=== PATIENT | male | born 1990 | race Caucasian/White ===

== ENCOUNTER 2017-01-23 10:56 | Emergency (ER) | payer SELFPAY ==
[2017-01-23] MEDS ORDERED: Alum Hydrox/Mag Hydrox/Simeth 15 ML, Metoclopramide 5 MG, Lidocaine 2% 5 ML PO ONE ×3 (11:11)
[2017-01-23] MEDS ORDERED: Pantoprazole 40 MG Vial IVPUSH ONE (11:11)
[2017-01-23] MEDS ORDERED: Ondansetron 4 MG/2 ML SDV IVPUSH ONE (11:11)
--- NOTE | 2017-01-23 11:22 | EDM.PDOC ---
ED HPI GENERAL MEDICAL PROBLEM - General Chief Complaint: Gastrointestinal Problem Stated Complaint: VOMITING Time Seen by Provider: 01/23/17 11:21 Source of Information: Reports: Patient History Limitations: Reports: No Limitations - History of Present Illness INITIAL COMMENTS - FREE TEXT/NARRATIVE: History of present illness: [27-year-old male comes in complaining of epigastric pain and vomiting. Patient indicates that he is post Prilosec fails to remember to take it frequently. Patient also acknowledges that he smokes marijuana on a daily basis and that he is the only one in the house at this time with nausea and vomiting denies diarrhea.] Review of systems: As per history of present illness and below otherwise all systems reviewed and negative. Past medical history: As per history of present illness and as reviewed below otherwise noncontributory. Surgical history: As per history of present illness and as reviewed below otherwise noncontributory. Social history: No reported history of drug or alcohol abuse. Family history: As per history of present illness and as reviewed below otherwise noncontributory. Physical exam: HEENT: Atraumatic, normocephalic, pupils reactive, negative for conjunctival pallor or scleral icterus, mucous membranes moist, throat clear, neck supple, nontender, trachea midline. Lungs: Clear to auscultation, breath sounds equal bilaterally, chest nontender. Heart: S1S2, regular, negative for clicks, rubs, or JVD. Abdomen: Soft, nondistended, nontender. Negative for masses or hepatosplenomegaly. Negative for costovertebral tenderness. Pelvis: Stable nontender. Genitourinary: Deferred. Rectal: Deferred. Extremities: Atraumatic, negative for cords or calf pain. Neurovascular unremarkable. Neuro: Awake, alert, oriented. Cranial nerves II through XII unremarkable. Cerebellum unremarkable. Motor and sensory unremarkable throughout. Exam nonfocal. Global assessment is benign and want dialogue with patient he initially is writhing in the bed and moaning and crying but when taking his history he was able to speak clearly in full sentences without any signs of distress. Diagnostics: [] Therapeutics: [GI cocktail, Protonix, Zofran] Impression: [Viral syndrome Nausea and vomiting] Plan: [Zofran clear liquid diet follow-up with PCP] Definitive disposition and diagnosis as appropriate pending reevaluation and review of above. Bilateral Upper Abdominal Pain Score (Numeric/FACES): 8 - Related Data Allergies Allergy/AdvReac Type Severity Reaction Status Date / Time No Known Allergies Allergy Verified 01/23/17 11:05 Home Meds: Home Meds Ondansetron [Ondansetron Odt] 4 mg SL Q6H PRN #20 tab.rapdis 04/12/15 [Rx] Ondansetron [Zofran] 4 mg PO Q4H #30 tab 01/23/17 [Rx] Past Medical History - Past Health History Medical/Surgical History: Denies Medical/Surgical History HEENT History: Reports: None Cardiovascular History: Reports: None Respiratory History: Reports: None Gastrointestinal History: Reports: GERD Genitourinary History: Reports: None Musculoskeletal History: Reports: None Neurological History: Reports: None Psychiatric History: Reports: None Endocrine/Metabolic History: Reports: None Hematologic History: Reports: None Immunologic History: Reports: None Oncologic (Cancer) History: Reports: None Dermatologic History: Reports: None - Infectious Disease History Infectious Disease History: Reports: Chicken Pox - Past Surgical History Head Surgeries/Procedures: Reports: None HEENT Surgical History: Reports: Myringotomy w Tube(s) Cardiovascular Surgical History: Reports: None Respiratory Surgical History: Reports: None GI Surgical History: Reports: None Male Surgical History: Reports: None Endocrine Surgical History: Reports: None Neurological Surgical History: Reports: None Musculoskeletal Surgical History: Reports: Other (See Below) Dermatological Surgical History: Reports: None Social & Family History - Family History Family Medical History: Noncontributory Cardiac: Reports: Hypertension - Tobacco Use Smoking Status *Q: Current Every Day Smoker Years of Tobacco use: 9 Packs/Tins Daily: 1 Used Tobacco, but Quit: No Second Hand Smoke Exposure: No - Caffeine Use Caffeine Use: Reports: Soda, Tea - Alcohol Use Days Per Week of Alcohol Use: 1 Number of Drinks Per Day: 1 Total Drinks Per Week: 1 - Recreational Drug Use Recreational Drug Use: Yes Drug Use in Last 12 Months: Yes Recreational Drug Type: Reports: Marijuana/Hashish Recreational Drug Use Frequency: Daily Recreational Drug Last Use: Nov 19, 2015 ED ROS GENERAL - Review of Systems Review Of Systems: See Below (See history of present illness) ED EXAM, GENERAL - Physical Exam Exam: See Below (See history of present illness) Course - Vital Signs Last Recorded V/S: Last Vital Signs Temp 37.4 C 01/23/17 11:07 Pulse 65 01/23/17 11:07 Resp 16 01/23/17 11:07 BP 136/86 01/23/17 11:07 Pulse Ox 97 01/23/17 11:07 - Orders/Labs/Meds Orders: Active Orders 24 hr Category Date Time Status Saline Lock Insert [OM.PC] Stat Oth 01/23/17 11:10 Ordered Meds: Medications Discontinued Medications Generic Name Dose Route Start Last Admin Trade Name Sugey PRN Reason Stop Dose Admin Al Hydroxide/Mg Hydroxide 15 0 ml 01/23/17 11:11 01/23/17 11:37 ml/ Metoclopramide HCl 5 mg/ PO 01/23/17 11:12 1 each Lidocaine HCl 5 ml ONETIME ONE Administration Ondansetron HCl 4 mg 01/23/17 11:11 01/23/17 11:33 Zofran IVPUSH 01/23/17 11:12 4 mg ONETIME ONE Administration Pantoprazole Sodium 80 mg 01/23/17 11:11 01/23/17 11:36 Protonix Iv IVPUSH 01/23/17 11:12 80 mg .BOLUS ONE Administration Departure - Departure Time of Disposition: 11:54 Disposition: Home, Self-Care 01 Condition: Good Clinical Impression: Nausea and vomiting - Discharge Information Prescriptions: Ondansetron [Zofran] 4 mg PO Q4H #30 tab Referrals: Uriel Rebolledo MD [Primary Care Provider] - Forms: ED Department Discharge Additional Instructions: The following information is given to patients seen in the emergency department who are being discharged to home. This information is to outline your options for follow-up care. We provide all patients seen in our emergency department with a follow-up referral. The need for follow-up, as well as the timing and circumstances, are variable depending upon the specifics of your emergency department visit. If you don't have a primary care physician on staff, we will provide you with a referral. We always advise you to contact your personal physician following an emergency department visit to inform them of the circumstance of the visit and for follow-up with them and/or the need for any referrals to a consulting specialist. The emergency department will also refer you to a specialist when appropriate. This referral assures that you have the opportunity for follow-up care with a specialist. All of these measure are taken in an effort to provide you with optimal care, which includes your follow-up. Under all circumstances we always encourage you to contact your private physician who remains a resource for coordinating your care. When calling for follow-up care, please make the office aware that this follow-up is from your recent emergency room visit. If for any reason you are refused follow-up, please contact the [facility] Emergency Department at and asked to speak to the emergency department charge nurse. Take nausea medicine as needed Up with PCP 1-2 days clear liquid diet for the next 2-3 days advancing diet as tolerated slowly with bananas rice applesauce toast Return to ED as needed as discussed - My Orders Last 24 Hours: My Active Orders 01/23/17 11:10 Saline Lock Insert [OM.PC] Stat - Assessment/Plan Last 24 Hours: My Active Orders 01/23/17 11:10 Saline Lock Insert [OM.PC] Stat
[2017-01-23 11:44] VITALS: BP 136/86
== END 2017-01-23 12:16 | disposition home or self-care (01) ==
LOC: MW.ED 10:56
DX: B34.9 Viral infection, unspecified (principal); F17.210 Nicotine dependence, cigarettes, uncomplicated
CPT/HCPCS: 96374; 96375; 99283; A9270; C9113; J2405; 99282

== ENCOUNTER 2017-01-25 13:42 | Emergency (ER) | payer SELFPAY ==
[2017-01-25] MEDS ORDERED: Ondansetron 4 MG/2 ML SDV IVPUSH ONE (14:20)
[2017-01-25] MEDS ORDERED: Sodium Chloride 0.9% 1,000 ML IV ONE ×3 (14:20→16:35)
--- NOTE | 2017-01-25 14:49 | EDM.PDOC ---
ED HPI GENERAL MEDICAL PROBLEM - General Chief Complaint: Gastrointestinal Problem Stated Complaint: UNK Time Seen by Provider: 01/25/17 14:44 Source of Information: Reports: Patient History Limitations: Reports: No Limitations - History of Present Illness INITIAL COMMENTS - FREE TEXT/NARRATIVE: History of present illness: 27-year-old male returns with complaints of continued nausea and vomiting. Significant other is at the bedside indicating that she noticed that it looked like he had a herniation in his left upper quadrant when he was vomiting[] Review of systems: As per history of present illness and below otherwise all systems reviewed and negative. Past medical history: As per history of present illness and as reviewed below otherwise noncontributory. Surgical history: As per history of present illness and as reviewed below otherwise noncontributory. Social history: No reported history of drug or alcohol abuse. Family history: As per history of present illness and as reviewed below otherwise noncontributory. Physical exam: HEENT: Atraumatic, normocephalic, pupils reactive, negative for conjunctival pallor or scleral icterus, mucous membranes moist, throat clear, neck supple, nontender, trachea midline. Lungs: Clear to auscultation, breath sounds equal bilaterally, chest nontender. Heart: S1S2, regular, negative for clicks, rubs, or JVD. Abdomen: Soft, nondistended, nontender. Negative for masses or hepatosplenomegaly. Negative for costovertebral tenderness. Pelvis: Stable nontender. Genitourinary: Deferred. Rectal: Deferred. Extremities: Atraumatic, negative for cords or calf pain. Neurovascular unremarkable. Neuro: Awake, alert, oriented. Cranial nerves II through XII unremarkable. Cerebellum unremarkable. Motor and sensory unremarkable throughout. Exam nonfocal. Diagnostics show some level of dehydration which is consistent with patient's story otherwise goal assessment is benign discussed cessation of smoking marijuana secondary to ingestion of cyclic vomiting syndrome. Patient indicated that he gained a significant pleasure from smoking a bowl every night and he didn't feel that that was contributory to his nausea and vomiting. Diagnostics: [CBC, CMP, amylase, lipase, UA, urine drug screen] Therapeutics: [IV fluid, zofran] Impression: [Cyclic vomiting Dehydration] Plan: [Follow-up with primary care] Definitive disposition and diagnosis as appropriate pending reevaluation and review of above. Abdominal Pain Score (Numeric/FACES): 6 - Related Data Allergies Allergy/AdvReac Type Severity Reaction Status Date / Time No Known Allergies Allergy Verified 01/25/17 14:13 Home Meds: Home Meds Ondansetron [Ondansetron Odt] 4 mg SL Q6H PRN #20 tab.shondadis 04/12/15 [Rx] Past Medical History - Past Health History Medical/Surgical History: Denies Medical/Surgical History HEENT History: Reports: None Cardiovascular History: Reports: None Respiratory History: Reports: None Gastrointestinal History: Reports: GERD Genitourinary History: Reports: None Musculoskeletal History: Reports: None Neurological History: Reports: None Psychiatric History: Reports: None Endocrine/Metabolic History: Reports: None Hematologic History: Reports: None Immunologic History: Reports: None Oncologic (Cancer) History: Reports: None Dermatologic History: Reports: None - Infectious Disease History Infectious Disease History: Reports: Chicken Pox - Past Surgical History Head Surgeries/Procedures: Reports: None HEENT Surgical History: Reports: Myringotomy w Tube(s) Cardiovascular Surgical History: Reports: None Respiratory Surgical History: Reports: None GI Surgical History: Reports: None Male Surgical History: Reports: None Endocrine Surgical History: Reports: None Neurological Surgical History: Reports: None Musculoskeletal Surgical History: Reports: Other (See Below) Dermatological Surgical History: Reports: None Social & Family History - Family History Family Medical History: Noncontributory Cardiac: Reports: Hypertension - Tobacco Use Smoking Status *Q: Current Every Day Smoker Years of Tobacco use: 5 Packs/Tins Daily: 1 Used Tobacco, but Quit: No Second Hand Smoke Exposure: No - Caffeine Use Caffeine Use: Reports: Soda - Alcohol Use Days Per Week of Alcohol Use: 1 Number of Drinks Per Day: 1 Total Drinks Per Week: 1 - Recreational Drug Use Recreational Drug Use: Yes Drug Use in Last 12 Months: Yes Recreational Drug Type: Reports: Marijuana/Hashish Recreational Drug Use Frequency: Daily Recreational Drug Last Use: Nov 19, 2015 ED ROS GENERAL - Review of Systems Review Of Systems: See Below (See history of present illness) ED EXAM, GENERAL - Physical Exam Exam: See Below (See history of present illness) Course - Vital Signs Last Recorded V/S: Last Vital Signs Temp 36.2 C 01/25/17 14:14 Pulse 102 H 01/25/17 14:14 Resp 18 01/25/17 14:14 BP 130/96 H 01/25/17 14:14 Pulse Ox 96 01/25/17 14:14 - Orders/Labs/Meds Orders: Active Orders 24 hr Category Date Time Status Abdomen Pelvis wo Cont [CT] Stat Exams 01/25/17 15:46 Taken CULTURE BLOOD [BC] Stat Lab 01/25/17 16:10 Received CULTURE BLOOD [BC] Stat Lab 01/25/17 16:23 Received Sodium Chloride 0.9% [Normal Saline] 1,000 ml Med 01/25/17 16:35 Active IV STAT Blood Culture x2 Reflex Set [OM.PC] Stat Oth 01/25/17 15:37 Ordered Medication Orders Sodium Chloride (Normal Saline) 1,000 mls @ 999 mls/hr IV STAT ONE Stop: 01/25/17 17:35 Labs: Laboratory Tests 01/25/17 01/25/17 01/25/17 Range/Units 14:44 14:44 16:10 WBC 20.43 H (4.0-11.0) K/uL RBC 6.54 H (4.50-5.90) M/uL Hgb 19.7 H (13.0-17.0) g/dL Hct 52.7 H (38.0-50.0) % MCV 80.6 (80.0-98.0) fL MCH 30.1 (27.0-32.0) pg MCHC 37.4 H (31.0-37.0) g/dL RDW Std Deviation 36.0 (28.0-62.0) fl RDW Coeff of Teresa 12 (11.0-15.0) % Plt Count 165 (150-400) K/uL MPV 11.50 (7.40-12.00) fL Add Manual Diff YES Neutrophils % (Manual) 85 H (48.0-80.0) % Lymphocytes % (Manual) 10 L (16.0-40.0) % Monocytes % (Manual) 5 (0.0-15.0) % Nucleated RBC % 0.0 /100WBC Absolute Seg Neuts 17.4 H (1.4-5.7) Lymphocytes # (Manual) 2.0 (0.6-2.4) Monocytes # (Manual) 1.0 H (0.0-0.8) Nucleated RBCs # 0 K/uL Lactate (0.20-2.00) mmol/L Sodium 125 L (136-146) mmol/L Potassium 4.1 (3.5-5.1) mmol/L Chloride 86 L (98-110) mmol/L Carbon Dioxide 17 L (21-31) mmol/L BUN 83 H (6.0-23.0) mg/dL Creatinine 3.4 H (0.6-1.5) mg/dL Est Cr Clr Drug Dosing TNP Estimated GFR (MDRD) 22.2 ml/min Glucose 116 H (60-110) mg/dL Calcium 10.2 (8.8-10.8) mg/dL Total Bilirubin 1.2 (0.1-1.5) mg/dL AST 44 H (5-40) IU/L ALT 27 (8-54) IU/L Alkaline Phosphatase 104 (40-150) Total Protein 10.0 H (6.0-8.0) g/dL Albumin 5.8 H (3.5-5.0) g/dL Globulin 4.2 H (2.0-3.5) g/dL Albumin/Globulin Ratio 1.4 (1.3-2.8) Amylase 99 H (10-90) U/L Lipase 27 (7-80) U/L Urine Color Urine Appearance Urine pH (5.0-8.0) Ur Specific [place] (1.001-1.035) Urine Protein (NEGATIVE) mg/dL Urine Glucose (UA) (NEGATIVE) mg/dL Urine Ketones (NEGATIVE) mg/dL Urine Occult Blood (NEGATIVE) Urine Nitrite (NEGATIVE) Urine Bilirubin (NEGATIVE) Urine Urobilinogen (<2.0) EU/dL Ur Leukocyte Esterase (NEGATIVE) Urine RBC (0-2/HPF) Urine WBC (0-5/HPF) Ur Epithelial Cells (NONE-FEW) Urine Bacteria (NEGATIVE) Urine Opiates Screen NEGATIVE (NEGATIVE) Ur Oxycodone Screen NEGATIVE (NEGATIVE) Urine Methadone Screen NEGATIVE (NEGATIVE) Ur Barbiturates Screen NEGATIVE (NEGATIVE) Ur Phencyclidine Scrn NEGATIVE (NEGATIVE) Ur Amphetamine Screen NEGATIVE (NEGATIVE) U Methamphetamines Scrn NEGATIVE (NEGATIVE) U Benzodiazepines Scrn NEGATIVE (NEGATIVE) U Cocaine Metab Screen NEGATIVE (NEGATIVE) U Marijuana (THC) Screen POSITIVE (NEGATIVE) 01/25/17 01/25/17 Range/Units 16:10 16:23 WBC (4.0-11.0) K/uL RBC (4.50-5.90) M/uL Hgb (13.0-17.0) g/dL Hct (38.0-50.0) % MCV (80.0-98.0) fL MCH (27.0-32.0) pg MCHC (31.0-37.0) g/dL RDW Std Deviation (28.0-62.0) fl RDW Coeff of Teresa (11.0-15.0) % Plt Count (150-400) K/uL MPV (7.40-12.00) fL Add Manual Diff Neutrophils % (Manual) (48.0-80.0) % Lymphocytes % (Manual) (16.0-40.0) % Monocytes % (Manual) (0.0-15.0) % Nucleated RBC % /100WBC Absolute Seg Neuts (1.4-5.7) Lymphocytes # (Manual) (0.6-2.4) Monocytes # (Manual) (0.0-0.8) Nucleated RBCs # K/uL Lactate 1.7 (0.20-2.00) mmol/L Sodium (136-146) mmol/L Potassium (3.5-5.1) mmol/L Chloride (98-110) mmol/L Carbon Dioxide (21-31) mmol/L BUN (6.0-23.0) mg/dL Creatinine (0.6-1.5) mg/dL Est Cr Clr Drug Dosing Estimated GFR (MDRD) ml/min Glucose (60-110) mg/dL Calcium (8.8-10.8) mg/dL Total Bilirubin (0.1-1.5) mg/dL AST (5-40) IU/L ALT (8-54) IU/L Alkaline Phosphatase (40-150) Total Protein (6.0-8.0) g/dL Albumin (3.5-5.0) g/dL Globulin (2.0-3.5) g/dL Albumin/Globulin Ratio (1.3-2.8) Amylase (10-90) U/L Lipase (7-80) U/L Urine Color YELLOW Urine Appearance CLEAR Urine pH 5.5 (5.0-8.0) Ur Specific [place] >= 1.030 (1.001-1.035) Urine Protein 100 (NEGATIVE) mg/dL Urine Glucose (UA) NEGATIVE (NEGATIVE) mg/dL Urine Ketones NEGATIVE (NEGATIVE) mg/dL Urine Occult Blood MODERATE (NEGATIVE) Urine Nitrite NEGATIVE (NEGATIVE) Urine Bilirubin NEGATIVE (NEGATIVE) Urine Urobilinogen 0.2 (<2.0) EU/dL Ur Leukocyte Esterase NEGATIVE (NEGATIVE) Urine RBC 0-1 (0-2/HPF) Urine WBC 0-1 (0-5/HPF) Ur Epithelial Cells RARE (NONE-FEW) Urine Bacteria RARE (NEGATIVE) Urine Opiates Screen (NEGATIVE) Ur Oxycodone Screen (NEGATIVE) Urine Methadone Screen (NEGATIVE) Ur Barbiturates Screen (NEGATIVE) Ur Phencyclidine Scrn (NEGATIVE) Ur Amphetamine Screen (NEGATIVE) U Methamphetamines Scrn (NEGATIVE) U Benzodiazepines Scrn (NEGATIVE) U Cocaine Metab Screen (NEGATIVE) U Marijuana (THC) Screen (NEGATIVE) Meds: Medications Generic Name Dose Route Start Last Admin Trade Name Freq PRN Reason Stop Dose Admin Sodium Chloride 1,000 mls @ 999 mls/hr 01/25/17 16:35 Normal Saline IV 01/25/17 17:35 STAT ONE Discontinued Medications Generic Name Dose Route Start Last Admin Trade Name Freq PRN Reason Stop Dose Admin Sodium Chloride 1,000 mls @ 999 mls/hr 01/25/17 14:20 01/25/17 14:39 Normal Saline IV 01/25/17 15:20 999 mls/hr STAT ONE Administration Sodium Chloride 1,000 mls @ 999 mls/hr 01/25/17 15:22 01/25/17 15:57 Normal Saline IV 01/25/17 16:22 999 mls/hr STAT ONE Administration Ondansetron HCl 4 mg 01/25/17 14:20 01/25/17 14:39 Zofran IVPUSH 01/25/17 14:21 4 mg ONETIME ONE Administration Prochlorperazine Edisylate 10 mg 01/25/17 16:00 01/25/17 15:57 Compazine IV 01/25/17 16:01 10 mg ONETIME ONE Administration Departure - Departure Time of Disposition: 17:35 Disposition: Home, Self-Care 01 Condition: Good Clinical Impression: Nausea and vomiting - Discharge Information Instructions: Nausea and Vomiting, Adult, [id number], Dehydration, Adult, [id number] Referrals: PCP,None [Primary Care Provider] - Forms: ED Department Discharge Additional Instructions: The following information is given to patients seen in the emergency department who are being discharged to home. This information is to outline your options for follow-up care. We provide all patients seen in our emergency department with a follow-up referral. The need for follow-up, as well as the timing and circumstances, are variable depending upon the specifics of your emergency department visit. If you don't have a primary care physician on staff, we will provide you with a referral. We always advise you to contact your personal physician following an emergency department visit to inform them of the circumstance of the visit and for follow-up with them and/or the need for any referrals to a consulting specialist. The emergency department will also refer you to a specialist when appropriate. This referral assures that you have the opportunity for follow-up care with a specialist. All of these measure are taken in an effort to provide you with optimal care, which includes your follow-up. Under all circumstances we always encourage you to contact your private physician who remains a resource for coordinating your care. When calling for follow-up care, please make the office aware that this follow-up is from your recent emergency room visit. If for any reason you are refused follow-up, please contact the [facility] Emergency Department at and asked to speak to the emergency department charge nurse. Follow-up with primary care provider as discussed Exploratory of marijuana smoking cessation to see if that impacts her cyclic vomiting Return to ED as needed as discussed - My Orders Last 24 Hours: My Active Orders 01/25/17 15:37 Blood Culture x2 Reflex Set [OM.PC] Stat 01/25/17 15:46 Abdomen Pelvis wo Cont [CT] Stat 01/25/17 16:10 CULTURE BLOOD [BC] Stat 01/25/17 16:23 CULTURE BLOOD [BC] Stat 01/25/17 16:35 Sodium Chloride 0.9% [Normal Saline] 1,000 ml IV STAT - Assessment/Plan Last 24 Hours: My Active Orders 01/25/17 15:37 Blood Culture x2 Reflex Set [OM.PC] Stat 01/25/17 15:46 Abdomen Pelvis wo Cont [CT] Stat 01/25/17 16:10 CULTURE BLOOD [BC] Stat 01/25/17 16:23 CULTURE BLOOD [BC] Stat 01/25/17 16:35 Sodium Chloride 0.9% [Normal Saline] 1,000 ml IV STAT
[2017-01-25 15:07] LABS: CHLORIDE,CL 86 mmol/L (98-110); SODIUM,NA 125 mmol/L (136-146)
[2017-01-25] MEDS ORDERED: Prochlorperazine 10 MG in Sodium Chloride 0.9% 50 ML IV ONE (15:40)
[2017-01-25] MEDS ORDERED: Prochlorperazine 10 MG/2 ML SDV IV ONE (16:00)
[2017-01-25 17:46] VITALS: BP 138/84
--- NOTE | 2017-01-26 11:08 | CT ---
EXAM DATE: 01/25/17 PATIENT'S AGE: 27 Patient: AMY URIBE Facility: [place], [place] Site . Site : 1992 Study: CT Abdomen/Pelvis wo cont [id number] 4:48:37 PM Ordering Physician: Doctor Burnett Final Report: INDICATION: pain, vomiting, weakness, last BM 3 days ago TECHNIQUE: CT abdomen and pelvis without contrast. COMPARISON: November 21, 2015 FINDINGS: Lower chest: Unremarkable. Liver: Unremarkable. Spleen: Unremarkable. Pancreas: Unremarkable. Gallbladder and bile ducts: Unremarkable. Kidneys: Unremarkable. No kidney or ureteral stones and no hydronephrosis. Adrenal glands: Unremarkable. GI tract: Moderate amount of stool. Appendix is normal. Vascular structures: Unremarkable. Lymph nodes: Unremarkable. Miscellaneous: Unremarkable. No free air or significant free fluid. Pelvic Organs: Unremarkable. Bones: Unremarkable for age. IMPRESSION: No acute abnormality of the abdomen and pelvis. No urinary tract stones, hydronephrosis, or other cause for flank pain. Dictated by Tyrell Choi MD @ 01/25/2017 5:11:36 PM Dictated by: Tyrell Choi MD @ 01/25/2017 17:11:44 (Electronic Signature) Report Signed by Proxy. [facility]
== END 2017-01-25 17:43 | disposition home or self-care (01) ==
LOC: MW.ED 13:42
DX: G43.A0 Cyclical vomiting, in migraine, not intractable (principal); E86.0 Dehydration; F17.210 Nicotine dependence, cigarettes, uncomplicated
CPT/HCPCS: 36415; 74176; 80053; 80305; 81001; 82150; 83605; 83690; 85025; 87040; 96361; 96374; 96375; 99284; J0780; J2405; J7040; 99282

== ENCOUNTER 2017-10-26 19:22 | Emergency (ER) | payer SELFPAY ==
[2017-10-26] MEDS ORDERED: Bacitracin Oint 1 GM U/D Packet TOP ONE (19:39)
--- NOTE | 2017-10-26 19:43 | EDM.PDOC ---
ED HPI GENERAL MEDICAL PROBLEM - General Chief Complaint: Skin Complaint Stated Complaint: LT LEG BITE Time Seen by Provider: 10/26/17 19:33 - History of Present Illness INITIAL COMMENTS - FREE TEXT/NARRATIVE: HISTORY AND PHYSICAL: History of present illness: Patient's 27-year-old male percents with a concern of medical screening exam for a small excoriated area on his left leg patient unsure if this was a pimple or a dog bite and at the request of his employer is here for evaluation is no fever chills nausea vomiting or other complaints Review of systems: As per history of present illness and below otherwise all systems reviewed and negative. Past medical history: As per history of present illness and as reviewed below otherwise noncontributory. Surgical history: As per history of present illness and as reviewed below otherwise noncontributory. Social history: No reported history of drug or alcohol abuse. Family history: As per history of present illness and as reviewed below otherwise noncontributory. Physical exam: HEENT: Atraumatic, normocephalic, pupils reactive, negative for conjunctival pallor or scleral icterus, mucous membranes moist, throat clear, neck supple, nontender, trachea midline. Lungs: Clear to auscultation, breath sounds equal bilaterally, chest nontender. Heart: S1S2, regular, negative for clicks, rubs, or JVD. Abdomen: Soft, nondistended, nontender. Negative for masses or hepatosplenomegaly. Negative for costovertebral tenderness. Pelvis: Stable nontender. Genitourinary: Deferred. Rectal: Deferred. Extremities: Patient has approximately a half centimeter small excoriated superficial area on his left mid leg there is no induration no significant erythema CMS in neurovascular exams unremarkable Neuro: Awake, alert, oriented. Cranial nerves II through XII unremarkable. Cerebellum unremarkable. Motor and sensory unremarkable throughout. Exam nonfocal. Diagnostics: None Therapeutics: Bacitracin Impression: #1 medical screening exam #2 left leg wound Definitive disposition and diagnosis as appropriate pending reevaluation and review of above. - Related Data Allergies Allergy/AdvReac Type Severity Reaction Status Date / Time No Known Allergies Allergy Verified 10/26/17 19:37 Home Meds: Home Meds . [No Known Home Meds] 10/26/17 [History] Past Medical History - Past Health History Medical/Surgical History: Denies Medical/Surgical History HEENT History: Reports: None Cardiovascular History: Reports: None Respiratory History: Reports: None Gastrointestinal History: Reports: GERD Genitourinary History: Reports: None Musculoskeletal History: Reports: None Neurological History: Reports: None Psychiatric History: Reports: None Endocrine/Metabolic History: Reports: None Hematologic History: Reports: None Immunologic History: Reports: None Oncologic (Cancer) History: Reports: None Dermatologic History: Reports: None - Infectious Disease History Infectious Disease History: Reports: Chicken Pox - Past Surgical History Head Surgeries/Procedures: Reports: None HEENT Surgical History: Reports: Myringotomy w Tube(s) Cardiovascular Surgical History: Reports: None Respiratory Surgical History: Reports: None GI Surgical History: Reports: None Male Surgical History: Reports: None Endocrine Surgical History: Reports: None Neurological Surgical History: Reports: None Musculoskeletal Surgical History: Reports: Other (See Below) Dermatological Surgical History: Reports: None Social & Family History - Family History Family Medical History: Noncontributory Cardiac: Reports: Hypertension - Caffeine Use Caffeine Use: Reports: Soda ED ROS GENERAL - Review of Systems Review Of Systems: ROS reveals no pertinent complaints other than HPI. ED EXAM, SKIN/RASH Exam: See Below (See dictation) Course - Vital Signs Last Recorded V/S: Last Vital Signs Temp 36.3 C 10/26/17 19:34 Pulse 72 10/26/17 19:34 Resp 17 10/26/17 19:34 BP 132/76 10/26/17 19:34 Pulse Ox 99 10/26/17 19:34 Departure - Departure Time of Disposition: 19:40 Disposition: Home, Self-Care 01 Condition: Good Clinical Impression: Encounter for medical screening examination, Abrasion - Discharge Information *PRESCRIPTION DRUG MONITORING PROGRAM REVIEWED*: Not Applicable *COPY OF PRESCRIPTION DRUG MONITORING REPORT IN PATIENT RAE: Not Applicable Referrals: PCP,None [Primary Care Provider] - Additional Instructions: The following information is given to patients seen in the emergency department who are being discharged to home. This information is to outline your options for follow-up care. We provide all patients seen in our emergency department with a follow-up referral. The need for follow-up, as well as the timing and circumstances, are variable depending upon the specifics of your emergency department visit. If you don't have a primary care physician on staff, we will provide you with a referral. We always advise you to contact your personal physician following an emergency department visit to inform them of the circumstance of the visit and for follow-up with them and/or the need for any referrals to a consulting specialist. The emergency department will also refer you to a specialist when appropriate. This referral assures that you have the opportunity for followup care with a specialist. All of these measure are taken in an effort to provide you with optimal care, which includes your followup. Under all circumstances we always encourage you to contact your private physician who remains a resource for coordinating your care. When calling for followup care, please make the office aware that this follow-up is from your recent emergency room visit. If for any reason you are refused follow-up, please contact the [facility] emergency department at and asked to speak to the emergency department charge nurse. Follow-up primary medical doctor as needed as discussed bacitracin as directed return as needed as discussed
[2017-10-26 20:00] VITALS: BP 146/72
== END 2017-10-26 19:57 | disposition home or self-care (01) ==
LOC: MW.ED 19:22
DX: S80.812A Abrasion, left lower leg, initial encounter (principal); X58.XXXA Exposure to other specified factors, initial encounter
CPT/HCPCS: 99281; 99282

== ENCOUNTER 2017-11-07 09:13 | Emergency (ER) | payer SELFPAY ==
[2017-11-07] MEDS ORDERED: Ondansetron 4 MG Tab.DIS PO ONE (09:28)
--- NOTE | 2017-11-07 09:33 | EDM.PDOC ---
ED HPI GENERAL MEDICAL PROBLEM - General Chief Complaint: Gastrointestinal Problem Stated Complaint: VOMITING Time Seen by Provider: 11/07/17 09:24 - History of Present Illness INITIAL COMMENTS - FREE TEXT/NARRATIVE: HISTORY AND PHYSICAL: History of present illness: The patient is a 27-year-old male who has been in this emergency department multiple times in the past for cyclic vomiting and vomiting episodes and presents today having vomiting after he drank milk this morning, knowing that he is lactose intolerant. Patient says there was nothing else in the house to drink water and water has no flavor so he drank a glass of milk knowing that his lactose intolerance. Prior to this his morning was normal and he had no nausea or abdominal pain or vomiting. After drinking the milk he started vomiting and when he presented to his employer he was sent here for evaluation and a work note. The patient says this is typical when he drinks milk. He has no discrete abdominal pain just the nausea and he has no cough fever or diarrhea. The patient is a habitual marijuana user and did not smoke any marijuana today. He has been seen here in the past for vomiting associated with marijuana use. Review of systems: As per history of present illness and below otherwise all systems reviewed and negative. Past medical history: As per history of present illness and as reviewed below otherwise noncontributory. Surgical history: As per history of present illness and as reviewed below otherwise noncontributory. Social history: No reported history of drug or alcohol abuse. Family history: As per history of present illness and as reviewed below otherwise noncontributory. Physical exam: General: Well-developed well-nourished thin man who is nontoxic and vital signs are noted by me. HEENT: Atraumatic, normocephalic, , negative for conjunctival pallor or scleral icterus, mucous membranes moist, throat clear, neck supple, nontender, trachea midline. Lungs: Clear to auscultation, breath sounds equal bilaterally, chest nontender. Heart: S1S2, regular rate and rhythm no overt murmurs Abdomen: Soft, nondistended, nontender. NABS Pelvis: Deferred Genitourinary: Deferred. Rectal: Deferred. Extremities: Atraumatic, full range of motion without defects or deficits Neurovascular unremarkable. Neuro: Awake, alert, oriented. Cranial nerves II through XII unremarkable. Cerebellum unremarkable. Motor and sensory unremarkable throughout. Exam nonfocal. Diagnostics: Patient was offered testing in the ED and says that he knows what caused this and would like to defer Therapeutics: Zofran ODT We discussed that the likely cause of this vomiting is him drinking milk knowing that his lactose intolerant and he says that this is the case. He would like something for the nausea and he would like to go home and go to sleep. He states that he is here mostly because of his employer's request and because he needs a work note so he can go home. Impression: Vomiting status post milk ingestion with history of lactose intolerance Definitive disposition and diagnosis as appropriate pending reevaluation and review of above. - Related Data Allergies Allergy/AdvReac Type Severity Reaction Status Date / Time No Known Allergies Allergy Verified 10/26/17 19:37 Home Meds: Home Meds . [No Known Home Meds] 10/26/17 [History] Past Medical History - Past Health History Medical/Surgical History: Denies Medical/Surgical History HEENT History: Reports: None Cardiovascular History: Reports: None Respiratory History: Reports: None Gastrointestinal History: Reports: GERD Genitourinary History: Reports: None Musculoskeletal History: Reports: None Neurological History: Reports: None Psychiatric History: Reports: None Endocrine/Metabolic History: Reports: None Hematologic History: Reports: None Immunologic History: Reports: None Oncologic (Cancer) History: Reports: None Dermatologic History: Reports: None - Infectious Disease History Infectious Disease History: Reports: Chicken Pox - Past Surgical History Head Surgeries/Procedures: Reports: None HEENT Surgical History: Reports: Myringotomy w Tube(s) Cardiovascular Surgical History: Reports: None Respiratory Surgical History: Reports: None GI Surgical History: Reports: None Male Surgical History: Reports: None Endocrine Surgical History: Reports: None Neurological Surgical History: Reports: None Musculoskeletal Surgical History: Reports: Other (See Below) Dermatological Surgical History: Reports: None Social & Family History - Family History Family Medical History: Noncontributory Cardiac: Reports: Hypertension - Caffeine Use Caffeine Use: Reports: Soda ED ROS GENERAL - Review of Systems Review Of Systems: ROS reveals no pertinent complaints other than HPI. ED EXAM, GENERAL - Physical Exam Exam: See Below (See dictation) Course - Orders/Labs/Meds Orders: Active Orders 24 hr Category Date Time Status Ondansetron [Zofran ODT] Med 11/07/17 09:28 Once 4 mg PO ONETIME ONE Medication Orders Ondansetron HCl (Zofran Odt) 4 mg PO ONETIME ONE Stop: 11/07/17 09:29 Meds: Medications Generic Name Dose Route Start Last Admin Trade Name Sugey PRN Reason Stop Dose Admin Ondansetron HCl 4 mg 11/07/17 09:28 Zofran Odt PO 11/07/17 09:29 ONETIME ONE Departure - Departure Time of Disposition: 09:33 Disposition: Home, Self-Care 01 Condition: Good Clinical Impression: Vomiting Qualifiers: Vomiting type: unspecified Vomiting Intractability: unspecified Nausea presence : with nausea Qualified Code(s): R11.2 - Nausea with vomiting, unspecified - Discharge Information Referrals: PCP,None [Primary Care Provider] - Additional Instructions: The following information is given to patients seen in the emergency department who are being discharged to home. This information is to outline your options for follow-up care. We provide all patients seen in our emergency department with a follow-up referral. The need for follow-up, as well as the timing and circumstances, are variable depending upon the specifics of your emergency department visit. If you don't have a primary care physician on staff, we will provide you with a referral. We always advise you to contact your personal physician following an emergency department visit to inform them of the circumstance of the visit and for follow-up with them and/or the need for any referrals to a consulting specialist. The emergency department will also refer you to a specialist when appropriate. This referral assures that you have the opportunity for followup care with a specialist. All of these measure are taken in an effort to provide you with optimal care, which includes your followup. Under all circumstances we always encourage you to contact your private physician who remains a resource for coordinating your care. When calling for followup care, please make the office aware that this follow-up is from your recent emergency room visit. If for any reason you are refused follow-up, please contact the [facility] emergency department at and ask to speak to the emergency department charge nurse. [facility] Primary care- Internal Medicine and Family [address] [address] Please refrain from drinking or eating foods that you not cause you to have nausea and vomiting. Use Zofran you have been prescribed as needed. Push sips of clear liquids and bland diet today. His follow-up with your provider in the clinic or one of ours for reevaluation further care and return to ER as needed and as discussed - My Orders Last 24 Hours: My Active Orders 11/07/17 09:28 Ondansetron [Zofran ODT] 4 mg PO ONETIME ONE - Assessment/Plan Last 24 Hours: My Active Orders 11/07/17 09:28 Ondansetron [Zofran ODT] 4 mg PO ONETIME ONE
[2017-11-07 09:58] VITALS: BP 141/84
== END 2017-11-07 09:45 | disposition home or self-care (01) ==
LOC: MW.ED 09:13
DX: R11.2 Nausea with vomiting, unspecified (principal); Z91.011 Allergy to milk products
CPT/HCPCS: 99283; A9270

== ENCOUNTER 2017-11-09 16:02 | Emergency (ER) | payer SELFPAY ==
[2017-11-09] MEDS ORDERED: Sodium Chloride 0.9% 1,000 ML IV ONE ×2 (16:17→17:11)
[2017-11-09] MEDS ORDERED: Ondansetron 4 MG/2 ML SDV IVPUSH ONE (16:17)
--- NOTE | 2017-11-09 16:35 | EDM.PDOC ---
ED HPI GENERAL MEDICAL PROBLEM - General Chief Complaint: Gastrointestinal Problem Stated Complaint: PT VOMITING Time Seen by Provider: 11/09/17 16:29 Source of Information: Reports: Patient History Limitations: Reports: No Limitations - History of Present Illness INITIAL COMMENTS - FREE TEXT/NARRATIVE: HISTORY AND PHYSICAL: []27-year-old male presenting with nausea, vomiting History of Present Illness: []States he is feeling heartburn really bad Discussed with the patient that his cyclic vomiting could be related to his use of marijuana. he disagrees with this previous assessment. Review of Systems: As per history of present illness and below otherwise all systems reviewed and negative. Past medical history: As per history of present illness and as reviewed below otherwise noncontributory. Surgical history: As per history of present illness and as reviewed below otherwise noncontributory. Social history: No reported history of drug or alcohol abuse. Family history: As per history of present illness and as reviewed below otherwise noncontributory. Physical exam: Alert and oriented answering questions in full sentences without any shortness of breath. He is nontoxic in appearance. HEENT: Atraumatic, normocehpalic, pupils reactive, negative for conjunctival pallor or scleral icterus, mucous membranes dry, throat clear, neck supple, nontender, trachea midline. Teeth are yellow in disrepair Lungs: Clear to auscultation, breath sounds equal bilaterally, chest non tender. Heart: S1S2, regular, negative for clicks, rubs, or JVD. Abdomen: Soft, nondistended, nontender. Negative for masses or hepatossplenmegaly. Negative for costovertebral tenderness. Pelvis: Stable nontender. Genitourinary: Deferred. Rectal: Deferred Extremities: Atraumatic, negative for cords or calf pain. Neurovascular unremarkable. Neuro: Awake, alert, oriented. Cranial nerves II through XII unremarkable. Cerebellum unremarkable. Motor and sensory unremarkable throughout. Exam nonfocal. Diagnostics: []cbc cmp ua urine drug screen Therapeutics: []ns zofran GI cocktail with Reglan Impression: []Cyclic vomiting H. pylori infection Plan: []Discharged home Continue with the Zofran as needed for nausea Clarithromycin 500 mg twice daily 2 weeks amoxicillin 1 gm twice a day 2 weeks omeprazole 20 mg daily for 30 days pepto bismol tabs qid X 2 weeks follow up with your PCP next week Return to the ER as directed and discussed. Definitive disposition and diagnosis as appropriate pending reevaluation and review of above. Onset: Sudden Duration: Chronic Location: Reports: Abdomen Quality: Reports: Ache Severity: Moderate Improves with: Reports: None Worsens with: Reports: None Associated Symptoms: Reports: Nausea/Vomiting. Denies: Other (heartburn) Chest Pain Score (Numeric/FACES): 6 - Related Data Allergies Allergy/AdvReac Type Severity Reaction Status Date / Time No Known Allergies Allergy Verified 10/26/17 19:37 Home Meds: Home Meds Ondansetron [Zofran ODT] 4 mg PO TID PRN #10 tab.dis 11/07/17 [Rx] Amoxicillin 875 mg PO BID #28 tab 11/09/17 [Rx] Bismuth Subsalicylate [Pepto Bismol] 262 mg PO QID #56 tab.chew 11/09/17 [Rx] Clarithromycin 500 mg PO BID #28 tablet 11/09/17 [Rx] Omeprazole 20 mg PO DAILY #30 cap.sr 11/09/17 [Rx] Past Medical History - Past Health History Medical/Surgical History: Denies Medical/Surgical History HEENT History: Reports: None Cardiovascular History: Reports: None Respiratory History: Reports: None Gastrointestinal History: Reports: GERD Genitourinary History: Reports: None Musculoskeletal History: Reports: None Neurological History: Reports: None Psychiatric History: Reports: None Endocrine/Metabolic History: Reports: None Hematologic History: Reports: None Immunologic History: Reports: None Oncologic (Cancer) History: Reports: None Dermatologic History: Reports: None - Infectious Disease History Infectious Disease History: Reports: Chicken Pox - Past Surgical History Head Surgeries/Procedures: Reports: None HEENT Surgical History: Reports: Myringotomy w Tube(s) Cardiovascular Surgical History: Reports: None Respiratory Surgical History: Reports: None GI Surgical History: Reports: None Male Surgical History: Reports: None Endocrine Surgical History: Reports: None Neurological Surgical History: Reports: None Musculoskeletal Surgical History: Reports: Other (See Below) Dermatological Surgical History: Reports: None Social & Family History - Family History Family Medical History: Noncontributory Cardiac: Reports: Hypertension - Caffeine Use Caffeine Use: Reports: Soda ED ROS GENERAL - Review of Systems Review Of Systems: ROS reveals no pertinent complaints other than HPI. ED EXAM, GI/ABD - Physical Exam Exam: See Below (see dictation) Course - Vital Signs Last Recorded V/S: Last Vital Signs Temp 37.2 C 11/09/17 16:28 Pulse 58 L 11/09/17 16:28 Resp 20 11/09/17 16:28 BP 124/86 11/09/17 16:28 Pulse Ox - Orders/Labs/Meds Orders: Active Orders 24 hr Category Date Time Status Abdomen 2V AP Flat Upright [CR] Stat Exams 11/09/17 16:40 Taken DRUG SCREEN, URINE [URCHEM] Stat Lab 11/09/17 16:27 Ordered UA W/MICROSCOPIC [URIN] Stat Lab 11/09/17 16:26 Ordered Labs: Laboratory Tests 11/09/17 11/09/17 11/09/17 Range/Units 17:36 17:36 17:36 WBC 13.65 H (4.0-11.0) K/uL RBC 5.20 (4.50-5.90) M/uL Hgb 15.6 (13.0-17.0) g/dL Hct 44.9 (38.0-50.0) % MCV 86.3 (80.0-98.0) fL MCH 30.0 (27.0-32.0) pg MCHC 34.7 (31.0-37.0) g/dL RDW Std Deviation 38.4 (28.0-62.0) fl RDW Coeff of Teresa 12 (11.0-15.0) % Plt Count 149 L (150-400) K/uL MPV 10.70 (7.40-12.00) fL Neut % (Auto) 81.1 H (48.0-80.0) % Lymph % (Auto) 11.4 L (16.0-40.0) % [place] % (Auto) 7.4 (0.0-15.0) % Eos % (Auto) 0.0 (0.0-7.0) % Baso % (Auto) 0.1 (0.0-1.5) % Neut # (Auto) 11.1 H (1.4-5.7) K/uL Lymph # (Auto) 1.6 (0.6-2.4) K/uL [place] # (Auto) 1.0 H (0.0-0.8) K/uL Eos # (Auto) 0.0 (0.0-0.7) K/uL Baso # (Auto) 0.0 (0.0-0.1) K/uL Nucleated RBC % 0.0 /100WBC Nucleated RBCs # 0 K/uL Sodium 135 L (136-148) mmol/L Potassium 4.0 (3.5-5.1) mmol/L Chloride 98 (98-107) mmol/L Carbon Dioxide 23.3 (21.0-32.0) mmol/L BUN 31 H (7.0-18.0) mg/dL Creatinine 1.2 (0.8-1.3) mg/dL Est Cr Clr Drug Dosing 72.45 mL/min Estimated GFR (MDRD) > 60.0 ml/min Glucose 104 (74-106) mg/dL Calcium 8.8 (8.5-10.1) mg/dL Total Bilirubin 0.9 (0.2-1.0) mg/dL AST 18 (15-37) IU/L ALT 23 (14-63) IU/L Alkaline Phosphatase 72 (46-116) U/L Total Protein 7.6 (6.4-8.2) g/dL Albumin 4.5 (3.4-5.0) g/dL Globulin 3.1 (2.0-3.5) g/dL Albumin/Globulin Ratio 1.5 (1.3-2.8) H. pylori IgG Antibody POSITIVE H (NEG) Meds: Medications Discontinued Medications Generic Name Dose Route Start Last Admin Trade Name Freq PRN Reason Stop Dose Admin Al Hydroxide/Mg Hydroxide 15 0 ml 11/09/17 16:41 11/09/17 16:55 ml/ Metoclopramide HCl 5 mg/ PO 11/09/17 16:42 1 each Lidocaine HCl 5 ml ONETIME ONE Administration Famotidine 20 mg 11/09/17 16:36 11/09/17 16:55 Pepcid IVPUSH 11/09/17 16:37 20 mg ONETIME ONE Administration Sodium Chloride 1,000 mls @ 999 mls/hr 11/09/17 16:17 11/09/17 16:58 Normal Saline IV 11/09/17 17:17 999 mls/hr STAT ONE Administration Sodium Chloride 1,000 mls @ 999 mls/hr 11/09/17 17:11 11/09/17 17:55 Normal Saline IV 11/09/17 18:11 999 mls/hr STAT ONE Administration Ondansetron HCl 4 mg 11/09/17 16:17 11/09/17 16:25 Zofran IVPUSH 11/09/17 16:18 4 mg ONETIME ONE Administration Departure - Departure Time of Disposition: 18:29 Disposition: Home, Self-Care 01 Condition: Good Clinical Impression: Dehydration, Helicobacter positive gastritis - Discharge Information *PRESCRIPTION DRUG MONITORING PROGRAM REVIEWED*: Not Applicable *COPY OF PRESCRIPTION DRUG MONITORING REPORT IN PATIENT RAE: Not Applicable Prescriptions: Amoxicillin 875 mg PO BID #28 tab Bismuth Subsalicylate [Pepto Bismol] 262 mg PO QID #56 tab.chew Clarithromycin 500 mg PO BID #28 tablet Omeprazole 20 mg PO DAILY #30 cap.sr Instructions: Dehydration, Adult, [id number], Helicobacter Pylori Infection Referrals: PCP,None [Primary Care Provider] - Forms: ED Department Discharge Additional Instructions: The following information is given to patients seen in the emergency department who are being discharged to home. This information is to outline your options for follow-up care. We provide all patients seen in our emergency department with a follow-up referral. The need for follow-up, as well as the timing and circumstances, are variable depending upon the specifics of your emergency department visit. If you don't have a primary care physician on staff, we will provide you with a referral. We always advise you to contact your personal physician following an emergency department visit to inform them of the circumstance of the visit and for follow-up with them and/or the need for any referrals to a consulting specialist. The emergency department will also refer you to a specialist when appropriate. This referral assures that you have the opportunity for followup care with a specialist. All of these measure are taken in an effort to provide you with optimal care, which includes your followup. Under all circumstances we always encourage you to contact your private physician who remains a resource for coordinating your care. When calling for followup care, please make the office aware that this follow-up is from your recent emergency room visit. If for any reason you are refused follow-up, please contact the [facility] emergency department at and asked to speak to the emergency department charge nurse. Discharged home Continue with the Zofran as needed for nausea Clarithromycin 500 mg twice daily 2 weeks amoxicillin 1 gm twice a day 2 weeks omeprazole 20 mg daily for 30 days pepto bismol tabs qid X 2 weeks follow up with your PCP next week Return to the ER as directed and discussed. - My Orders Last 24 Hours: My Active Orders 11/09/17 16:26 UA W/MICROSCOPIC [URIN] Stat 11/09/17 16:27 DRUG SCREEN, URINE [URCHEM] Stat 11/09/17 16:40 Abdomen 2V AP Flat Upright [CR] Stat - Assessment/Plan Last 24 Hours: My Active Orders 11/09/17 16:26 UA W/MICROSCOPIC [URIN] Stat 11/09/17 16:27 DRUG SCREEN, URINE [URCHEM] Stat 11/09/17 16:40 Abdomen 2V AP Flat Upright [CR] Stat
[2017-11-09] MEDS ORDERED: Famotidine 20 MG/2 ML SDV IVPUSH ONE (16:36)
[2017-11-09] MEDS ORDERED: Alum Hydrox/Mag Hydrox/Simeth 15 ML, Metoclopramide 5 MG, Lidocaine 2% 5 ML PO ONE ×3 (16:41)
[2017-11-09 18:14] LABS: CHLORIDE,CL 98 mmol/L (98-107); SODIUM,NA 135 mmol/L (136-148)
[2017-11-09 18:38] VITALS: BP 122/64
--- NOTE | 2017-11-12 10:49 | CR ---
EXAM DATE: 11/09/17 PATIENT'S AGE: 27 Patient: AMY URIBE Facility: [place], [place] Site . Site : 1990 Study: XRay Abdomen [id number] 6:20:37 PM Ordering Physician: Doctor Burnett Final Report: INDICATION: Vomiting for 3 days TECHNIQUE: Abdominal radiograph 3 views COMPARISON: None FINDINGS: Bowel: The bowel gas pattern is normal without evidence of bowel obstruction. Soft tissue: No evidence of pneumoperitoneum present. No suspicious calcifications noted. Bone: Unremarkable for age. IMPRESSION: 1. Unremarkable appearance of the visualized abdomen. Dictated by: Rahul Chakraborty MD @ 11/09/2017 18:26:05 (Electronic Signature) Report Signed by Proxy. RONIT
== END 2017-11-09 18:45 | disposition home or self-care (01) ==
LOC: MW.ED 16:02
DX: K29.70 Gastritis, unspecified, without bleeding (principal); B96.81 Helicobacter pylori [H. pylori] as the cause of diseases classified elsewhere; Z79.899 Other long term (current) drug therapy
CPT/HCPCS: 36415; 74019; 80053; 85025; 86677; 96361; 96374; 96375; 99284; A9270; J2405; J3490; J7040

== ENCOUNTER 2017-11-12 20:56 | Emergency (ER) | payer SELFPAY ==
[2017-11-12] MEDS ORDERED: Ondansetron 4 MG Tab.DIS PO ONE (21:17)
--- NOTE | 2017-11-12 21:31 | EDM.PDOC ---
ED HPI GENERAL MEDICAL PROBLEM - General Chief Complaint: Abdominal Pain Stated Complaint: ABDOMINAL PAIN Time Seen by Provider: 11/12/17 21:12 - History of Present Illness INITIAL COMMENTS - FREE TEXT/NARRATIVE: HISTORY AND PHYSICAL: History of present illness: Patient 27-year-old white male recently diagnosed with H. pylori presents with concern of constipation there's been no fever no chills no vomiting Review of systems: As per history of present illness and below otherwise all systems reviewed and negative. Past medical history: As per history of present illness and as reviewed below otherwise noncontributory. Surgical history: As per history of present illness and as reviewed below otherwise noncontributory. Social history: No reported history of drug or alcohol abuse. Family history: As per history of present illness and as reviewed below otherwise noncontributory. Physical exam: HEENT: Atraumatic, normocephalic, pupils reactive, negative for conjunctival pallor or scleral icterus, mucous membranes moist, throat clear, neck supple, nontender, trachea midline. Lungs: Clear to auscultation, breath sounds equal bilaterally, chest nontender. Heart: S1S2, regular, negative for clicks, rubs, or JVD. Abdomen: Soft, nondistended, nontender. Negative for masses or hepatosplenomegaly. Negative for costovertebral tenderness. Pelvis: Stable nontender. Genitourinary: Deferred. Rectal: Deferred. Extremities: Atraumatic, negative for cords or calf pain. Neurovascular unremarkable. Neuro: Awake, alert, oriented. Cranial nerves II through XII unremarkable. Cerebellum unremarkable. Motor and sensory unremarkable throughout. Exam nonfocal. Diagnostics: CBC CMP KUB Therapeutics: Zofran 4 mg ODT Impression: #1 history of H. pylori infection #2 constipation Definitive disposition and diagnosis as appropriate pending reevaluation and review of above. epigastric Pain Score (Numeric/FACES): 6 - Related Data Allergies Allergy/AdvReac Type Severity Reaction Status Date / Time No Known Allergies Allergy Verified 11/12/17 21:15 Home Meds: Home Meds Ondansetron [Zofran ODT] 4 mg PO TID PRN #10 tab.dis 11/07/17 [Rx] Amoxicillin 875 mg PO BID #28 tab 11/09/17 [Rx] Bismuth Subsalicylate [Pepto Bismol] 262 mg PO QID #56 tab.chew 11/09/17 [Rx] Clarithromycin 500 mg PO BID #28 tablet 11/09/17 [Rx] Omeprazole 20 mg PO DAILY #30 cap.sr 11/09/17 [Rx] Past Medical History - Past Health History Medical/Surgical History: Denies Medical/Surgical History HEENT History: Reports: None Cardiovascular History: Reports: None Respiratory History: Reports: None Gastrointestinal History: Reports: GERD Genitourinary History: Reports: None Musculoskeletal History: Reports: None Neurological History: Reports: None Psychiatric History: Reports: None Endocrine/Metabolic History: Reports: None Hematologic History: Reports: None Immunologic History: Reports: None Oncologic (Cancer) History: Reports: None Dermatologic History: Reports: None - Infectious Disease History Infectious Disease History: Reports: Chicken Pox - Past Surgical History Head Surgeries/Procedures: Reports: None HEENT Surgical History: Reports: Myringotomy w Tube(s) Cardiovascular Surgical History: Reports: None Respiratory Surgical History: Reports: None GI Surgical History: Reports: None Male Surgical History: Reports: None Endocrine Surgical History: Reports: None Neurological Surgical History: Reports: None Musculoskeletal Surgical History: Reports: Other (See Below) Other Musculoskeletal Surgeries/Procedures:: finger sx Dermatological Surgical History: Reports: None Social & Family History - Family History Family Medical History: Noncontributory Cardiac: Reports: Hypertension - Tobacco Use Smoking Status *Q: Former Smoker Used Tobacco, but Quit: Yes Month/Year Tobacco Last Used: 4 - Caffeine Use Caffeine Use: Reports: Soda Caffeine Use Comment: 60 oz of soda/day - Recreational Drug Use Recreational Drug Use: Yes Drug Use in Last 12 Months: Yes Recreational Drug Type: Reports: Marijuana/Hashish Recreational Drug Use Frequency: Daily ED ROS GENERAL - Review of Systems Review Of Systems: ROS reveals no pertinent complaints other than HPI. ED EXAM, GENERAL - Physical Exam Exam: See Below (See dictation) Course - Vital Signs Last Recorded V/S: Last Vital Signs Temp 36.8 C 11/12/17 20:56 Pulse 73 11/12/17 20:56 Resp 18 11/12/17 20:56 BP 137/95 H 11/12/17 20:56 Pulse Ox 99 11/12/17 20:56 - Orders/Labs/Meds Orders: Active Orders 24 hr Category Date Time Status KUB [Abdomen 1V Flat] [CR] Stat Exams 11/12/17 21:17 Ordered CBC WITH AUTO DIFF [HEME] Stat Lab 11/12/17 21:16 Ordered COMPREHENSIVE METABOLIC PN,CMP [CHEM] Stat Lab 11/12/17 21:16 Ordered Meds: Medications Discontinued Medications Generic Name Dose Route Start Last Admin Trade Name Sugey PRN Reason Stop Dose Admin Ondansetron HCl 4 mg 11/12/17 21:17 Zofran Odt PO 11/12/17 21:18 ONETIME ONE Departure - Departure Time of Disposition: 21:31 Disposition: Home, Self-Care 01 Condition: Good Clinical Impression: H. pylori infection, Constipation - Discharge Information *PRESCRIPTION DRUG MONITORING PROGRAM REVIEWED*: Not Applicable *COPY OF PRESCRIPTION DRUG MONITORING REPORT IN PATIENT RAE: Not Applicable Referrals: Uriel Rebolledo MD [Primary Care Provider] - Additional Instructions: The following information is given to patients seen in the emergency department who are being discharged to home. This information is to outline your options for follow-up care. We provide all patients seen in our emergency department with a follow-up referral. The need for follow-up, as well as the timing and circumstances, are variable depending upon the specifics of your emergency department visit. If you don't have a primary care physician on staff, we will provide you with a referral. We always advise you to contact your personal physician following an emergency department visit to inform them of the circumstance of the visit and for follow-up with them and/or the need for any referrals to a consulting specialist. The emergency department will also refer you to a specialist when appropriate. This referral assures that you have the opportunity for followup care with a specialist. All of these measure are taken in an effort to provide you with optimal care, which includes your followup. Under all circumstances we always encourage you to contact your private physician who remains a resource for coordinating your care. When calling for followup care, please make the office aware that this follow-up is from your recent emergency room visit. If for any reason you are refused follow-up, please contact the [facility] emergency department at and asked to speak to the emergency department charge nurse. Push fluids and fiber as directed continue current medications follow-up private medical doctor return as needed as discussed - My Orders Last 24 Hours: My Active Orders 11/12/17 21:16 CBC WITH AUTO DIFF [HEME] Stat COMPREHENSIVE METABOLIC PN,CMP [CHEM] Stat 11/12/17 21:17 KUB [Abdomen 1V Flat] [CR] Stat - Assessment/Plan Last 24 Hours: My Active Orders 11/12/17 21:16 CBC WITH AUTO DIFF [HEME] Stat COMPREHENSIVE METABOLIC PN,CMP [CHEM] Stat 11/12/17 21:17 KUB [Abdomen 1V Flat] [CR] Stat
[2017-11-12] MEDS ORDERED: Sodium Chloride 0.9% 1,000 ML IV ONE (21:54)
[2017-11-12] MEDS ORDERED: Alum Hydrox/Mag Hydrox/Simeth 15 ML, Metoclopramide 5 MG, Lidocaine 2% 5 ML PO ONE ×3 (22:49)
[2017-11-12 23:15] VITALS: BP 147/90
--- NOTE | 2017-11-13 09:59 | CR ---
EXAM DATE: 11/12/17 PATIENT'S AGE: 27 Patient: AMY URIBE Facility: [place], [place] Site . Site : 1990 Study: XRay Abdomen [id number]/3/2018 10:14:39 PM Ordering Physician: Rhonda Wilkes Final Report: Indication: : Abdominal pain, nausea Technique: KUB 2 view Comparison: November 09, 2017 Findings/Impression: : Moderate amount of stool within the ascending and transverse portions of the colon. No abnormal calcification identified. No free air pneumatosis. Osseous structures intact. Consider CT abdomen pelvis for further evaluation if clinically indicated. Dictated by Lenka Mckeon MD @ Nov 12 2017 10:40PM (Electronic Signature) Report Signed by Proxy. RONIT
== END 2017-11-12 23:20 | disposition home or self-care (01) ==
LOC: MW.ED 20:56
DX: K59.00 Constipation, unspecified (principal); B96.81 Helicobacter pylori [H. pylori] as the cause of diseases classified elsewhere; Z79.899 Other long term (current) drug therapy; Z87.891 Personal history of nicotine dependence
CPT/HCPCS: 36415; 74018; 80053; 85025; 96360; 99284; A9270; J7040; 99282

== ENCOUNTER 2018-03-19 21:31 | Emergency (ER) | payer SELFPAY ==
[2018-03-19] MEDS ORDERED: Sodium Chloride 0.9% 10 ML Syringe FLUSH PRN (21:51)
[2018-03-19] MEDS ORDERED: Ondansetron 4 MG/2 ML SDV IVPUSH ONE (21:51)
[2018-03-19] MEDS ORDERED: Sodium Chloride 0.9% 2.5 ML Syringe FLUSH PRN (21:51)
[2018-03-19] MEDS ORDERED: Sodium Chloride 0.9% 1,000 ML IV ONE ×2 (21:51→22:42)
[2018-03-19] MEDS ORDERED: Pantoprazole 40 MG Vial IVPUSH ONE (21:51)
--- NOTE | 2018-03-19 21:56 | EDM.PDOC ---
ED HPI GENERAL MEDICAL PROBLEM - General Chief Complaint: Gastrointestinal Problem Stated Complaint: PT VOMITING BLOOD Time Seen by Provider: 03/19/18 21:44 - History of Present Illness INITIAL COMMENTS - FREE TEXT/NARRATIVE: HISTORY AND PHYSICAL: History of present illness: Patient is a 28 y/o male who is well known to this provider and this ED for multiple visits in the past for cyclical vomiting and presents with same. He said he was having a normal day and was leaving work when he suddenly felt nauseated and started having vomiting initially of some food and bile and then some blood. Now he is just dry heaving and retching. He says is typical of his vomiting episodes but there was no specific trigger today. He's had no fever chills chest pain or shortness of breath and no diarrhea. The patient does smoke cigarettes and also is a habitual marijuana user and it has been discussed with him multiple times on prior visits about reducing and/or eliminating marijuana use as this may be contributing to his vomiting but he insists that it actually helps him with his appetite and is resistant to doing so. He says he follows with Dr. Uriel Melton at [facility] but has not seen him since the summer and he has not seen a GI specialist for these issues. He is not feeling lightheaded or dizzy and he has no specific abdominal pain. In my computer review of the patient's prior visits here he was diagnosed with H. pylori over the summer and he tells me that he did complete the treatment. He says that he is supposed to be on Prilosec but he does not have insurance and he says he can't afford to buy it at [facility] [id number]. The patient also admits that he drinks a lot of soda pop Review of systems: As per history of present illness and below otherwise all systems reviewed and negative. Past medical history: As per history of present illness and as reviewed below otherwise noncontributory. Surgical history: As per history of present illness and as reviewed below otherwise noncontributory. Social history: No reported history of drug or alcohol abuse. Family history: As per history of present illness and as reviewed below otherwise noncontributory. Physical exam: General: Well-developed well-nourished thin male who has very poor dentition and is ambulatory in the ED. Vital signs were noted by me HEENT: Atraumatic, normocephalic, , negative for conjunctival pallor or scleral icterus, mucous membranes tacky throat clear, neck supple, nontender, trachea midline. Lungs: Clear to auscultation, breath sounds equal bilaterally, chest nontender. Heart: S1S2, regular, rate and rhythm no overt evidence Abdomen: Soft, nondistended, nontender. Negative for masses or hepatosplenomegaly. Slightly Hypoactive bowel sounds Pelvis: Stable nontender. Genitourinary: Deferred. Rectal: Deferred. Extremities: Atraumatic, range of motion without defects or deficits. Neurovascular unremarkable. Neuro: Awake, alert, oriented. Cranial nerves II through XII unremarkable. Cerebellum unremarkable. Motor and sensory unremarkable throughout. Exam nonfocal. Diagnostics: CBC CMP amylase lipase UA UDS abdominal x-rays Therapeutics: IV fluids Zofran and Protonix Reglan and Benadryl Patient initially did well with the Zofran but then had some dry heaves and I gave him Reglan and Benadryl and he is sleeping comfortably. We will plan for discharge with the Reglan and I will advise [id number] Benadryl with it. I will also buy follow-up with their biter at [facility] Dr. Rebolledo Impression: Cyclic vomiting acute on chronic Definitive disposition and diagnosis as appropriate pending reevaluation and review of above. abdominal area Pain Score (Numeric/FACES): 7 - Related Data Allergies Allergy/AdvReac Type Severity Reaction Status Date / Time No Known Allergies Allergy Verified 03/19/18 21:35 Home Meds: Home Meds Omeprazole Magnesium [Prilosec Otc] 40 mg PO BID 03/19/18 [History] Past Medical History - Past Health History Medical/Surgical History: Denies Medical/Surgical History HEENT History: Reports: None Cardiovascular History: Reports: None Respiratory History: Reports: None Gastrointestinal History: Reports: GERD Genitourinary History: Reports: None Musculoskeletal History: Reports: None Neurological History: Reports: None Psychiatric History: Reports: None Endocrine/Metabolic History: Reports: None Hematologic History: Reports: None Immunologic History: Reports: None Oncologic (Cancer) History: Reports: None Dermatologic History: Reports: None - Infectious Disease History Infectious Disease History: Reports: Chicken Pox - Past Surgical History Head Surgeries/Procedures: Reports: None HEENT Surgical History: Reports: Myringotomy w Tube(s) Cardiovascular Surgical History: Reports: None Respiratory Surgical History: Reports: None GI Surgical History: Reports: None Male Surgical History: Reports: None Endocrine Surgical History: Reports: None Neurological Surgical History: Reports: None Musculoskeletal Surgical History: Reports: Other (See Below) Other Musculoskeletal Surgeries/Procedures:: finger sx Dermatological Surgical History: Reports: None Social & Family History - Family History Family Medical History: Noncontributory Cardiac: Reports: Hypertension - Tobacco Use Smoking Status *Q: Current Every Day Smoker Years of Tobacco use: 10 Packs/Tins Daily: 0.5 - Caffeine Use Caffeine Use: Reports: Energy Drinks Caffeine Use Comment: 60 oz of soda/day - Recreational Drug Use Recreational Drug Use: Yes Drug Use in Last 12 Months: Yes Recreational Drug Type: Reports: Marijuana/Hashish ED ROS GENERAL - Review of Systems Review Of Systems: ROS reveals no pertinent complaints other than HPI. ED EXAM, GENERAL - Physical Exam Exam: See Below (See dictation) Course - Vital Signs Last Recorded V/S: Last Vital Signs Temp 36.1 C 03/19/18 21:36 Pulse 58 L 03/19/18 21:36 Resp 18 03/19/18 21:36 BP 141/67 H 03/19/18 21:36 Pulse Ox 97 03/19/18 21:36 - Orders/Labs/Meds Orders: Active Orders 24 hr Category Date Time Status Abdomen Series w Chest 1V [CR] Stat Exams 03/19/18 21:56 Taken Sodium Chloride 0.9% [Saline Flush] Med 03/19/18 21:51 Active 10 ml FLUSH ASDIRECTED PRN Sodium Chloride 0.9% [Saline Flush] Med 03/19/18 21:51 Active 2.5 ml FLUSH ASDIRECTED PRN Saline Lock Insert [OM.PC] Stat Oth 03/19/18 21:51 Ordered Medication Orders Sodium Chloride (Saline Flush) 10 ml FLUSH ASDIRECTED PRN PRN Reason: Keep Vein Open Sodium Chloride (Saline Flush) 2.5 ml FLUSH ASDIRECTED PRN PRN Reason: Keep Vein Open Labs: Laboratory Tests 03/19/18 03/19/18 03/19/18 Range/Units 21:45 21:45 21:58 WBC 12.88 H (4.0-11.0) K/uL RBC 5.23 (4.50-5.90) M/uL Hgb 15.7 (13.0-17.0) g/dL Hct 44.7 (38.0-50.0) % MCV 85.5 (80.0-98.0) fL MCH 30.0 (27.0-32.0) pg MCHC 35.1 (31.0-37.0) g/dL RDW Std Deviation 37.7 (28.0-62.0) fl RDW Coeff of Teresa 12 (11.0-15.0) % Plt Count 166 (150-400) K/uL MPV 11.40 (7.40-12.00) fL Add Manual Diff YES Neutrophils % (Manual) 77 (48.0-80.0) % Band Neutrophils % 2 % Lymphocytes % (Manual) 19 (16.0-40.0) % Monocytes % (Manual) 2 (0.0-15.0) % Nucleated RBC % 0.0 /100WBC Absolute Seg Neuts 9.9 H (1.4-5.7) Band Neutrophils # 0.3 Lymphocytes # (Manual) 2.4 (0.6-2.4) Monocytes # (Manual) 0.3 (0.0-0.8) Nucleated RBCs # 0 K/uL Sodium (136-148) mmol/L Potassium (3.5-5.1) mmol/L Chloride (98-107) mmol/L Carbon Dioxide (21.0-32.0) mmol/L BUN (7.0-18.0) mg/dL Creatinine (0.8-1.3) mg/dL Est Cr Clr Drug Dosing mL/min Estimated GFR (MDRD) ml/min Glucose (74-106) mg/dL Calcium (8.5-10.1) mg/dL Total Bilirubin (0.2-1.0) mg/dL AST (15-37) IU/L ALT (14-63) IU/L Alkaline Phosphatase (46-116) U/L Total Protein (6.4-8.2) g/dL Albumin (3.4-5.0) g/dL Globulin (2.6-4.0) g/dL Albumin/Globulin Ratio (0.9-1.6) Amylase (25-115) U/L Lipase (73-393) U/L Urine Color DARK YELLOW Urine Appearance CLEAR Urine pH 5.5 (5.0-8.0) Ur Specific [place] >= 1.030 (1.001-1.035) Urine Protein 30 H (NEGATIVE) mg/dL Urine Glucose (UA) NEGATIVE (NEGATIVE) mg/dL Urine Ketones 15 H (NEGATIVE) mg/dL Urine Occult Blood NEGATIVE (NEGATIVE) Urine Nitrite NEGATIVE (NEGATIVE) Urine Bilirubin SMALL H (NEGATIVE) Urine Urobilinogen 0.2 (<2.0) EU/dL Ur Leukocyte Esterase NEGATIVE (NEGATIVE) Urine RBC 0-3 (0-2/HPF) Urine WBC 0-2 (0-5/HPF) Ur Epithelial Cells OCCASIONAL (NONE-FEW) Urine Bacteria FEW (NEGATIVE) Urine Mucus HEAVY (NONE-MOD) Urine Opiates Screen NEGATIVE (NEGATIVE) Ur Oxycodone Screen NEGATIVE (NEGATIVE) Urine Methadone Screen NEGATIVE (NEGATIVE) Ur Barbiturates Screen NEGATIVE (NEGATIVE) Ur Phencyclidine Scrn NEGATIVE (NEGATIVE) Ur Amphetamine Screen NEGATIVE (NEGATIVE) U Methamphetamines Scrn NEGATIVE (NEGATIVE) U Benzodiazepines Scrn NEGATIVE (NEGATIVE) U Cocaine Metab Screen NEGATIVE (NEGATIVE) U Marijuana (THC) Screen POSITIVE (NEGATIVE) 03/19/18 Range/Units 21:58 WBC (4.0-11.0) K/uL RBC (4.50-5.90) M/uL Hgb (13.0-17.0) g/dL Hct (38.0-50.0) % MCV (80.0-98.0) fL MCH (27.0-32.0) pg MCHC (31.0-37.0) g/dL RDW Std Deviation (28.0-62.0) fl RDW Coeff of Teresa (11.0-15.0) % Plt Count (150-400) K/uL MPV (7.40-12.00) fL Add Manual Diff Neutrophils % (Manual) (48.0-80.0) % Band Neutrophils % % Lymphocytes % (Manual) (16.0-40.0) % Monocytes % (Manual) (0.0-15.0) % Nucleated RBC % /100WBC Absolute Seg Neuts (1.4-5.7) Band Neutrophils # Lymphocytes # (Manual) (0.6-2.4) Monocytes # (Manual) (0.0-0.8) Nucleated RBCs # K/uL Sodium 140 (136-148) mmol/L Potassium 3.8 (3.5-5.1) mmol/L Chloride 100 (98-107) mmol/L Carbon Dioxide 24.0 (21.0-32.0) mmol/L BUN 30 H (7.0-18.0) mg/dL Creatinine 1.1 (0.8-1.3) mg/dL Est Cr Clr Drug Dosing 84.88 mL/min Estimated GFR (MDRD) > 60.0 ml/min Glucose 181 H (74-106) mg/dL Calcium 10.1 (8.5-10.1) mg/dL Total Bilirubin 0.4 (0.2-1.0) mg/dL AST 10 L (15-37) IU/L ALT 20 (14-63) IU/L Alkaline Phosphatase 103 (46-116) U/L Total Protein 8.5 H (6.4-8.2) g/dL Albumin 4.6 (3.4-5.0) g/dL Globulin 3.9 (2.6-4.0) g/dL Albumin/Globulin Ratio 1.2 (0.9-1.6) Amylase 72 (25-115) U/L Lipase 59 L (73-393) U/L Urine Color Urine Appearance Urine pH (5.0-8.0) Ur Specific [place] (1.001-1.035) Urine Protein (NEGATIVE) mg/dL Urine Glucose (UA) (NEGATIVE) mg/dL Urine Ketones (NEGATIVE) mg/dL Urine Occult Blood (NEGATIVE) Urine Nitrite (NEGATIVE) Urine Bilirubin (NEGATIVE) Urine Urobilinogen (<2.0) EU/dL Ur Leukocyte Esterase (NEGATIVE) Urine RBC (0-2/HPF) Urine WBC (0-5/HPF) Ur Epithelial Cells (NONE-FEW) Urine Bacteria (NEGATIVE) Urine Mucus (NONE-MOD) Urine Opiates Screen (NEGATIVE) Ur Oxycodone Screen (NEGATIVE) Urine Methadone Screen (NEGATIVE) Ur Barbiturates Screen (NEGATIVE) Ur Phencyclidine Scrn (NEGATIVE) Ur Amphetamine Screen (NEGATIVE) U Methamphetamines Scrn (NEGATIVE) U Benzodiazepines Scrn (NEGATIVE) U Cocaine Metab Screen (NEGATIVE) U Marijuana (THC) Screen (NEGATIVE) Meds: Medications Generic Name Dose Route Start Last Admin Trade Name Freq PRN Reason Stop Dose Admin Sodium Chloride 10 ml 03/19/18 21:51 Saline Flush FLUSH ASDIRECTED PRN Keep Vein Open Sodium Chloride 2.5 ml 03/19/18 21:51 Saline Flush FLUSH ASDIRECTED PRN Keep Vein Open Discontinued Medications Generic Name Dose Route Start Last Admin Trade Name Alanq PRN Reason Stop Dose Admin Diphenhydramine HCl 50 mg 03/19/18 23:34 03/19/18 23:47 Benadryl IVPUSH 03/19/18 23:35 50 mg ONETIME ONE Administration Sodium Chloride 1,000 mls @ 999 mls/hr 03/19/18 21:51 03/19/18 22:00 Normal Saline IV 03/19/18 22:51 999 mls/hr STAT ONE Administration Sodium Chloride 1,000 mls @ 999 mls/hr 03/19/18 22:42 03/19/18 23:26 Normal Saline IV 03/19/18 23:42 999 mls/hr STAT ONE Administration Metoclopramide HCl 10 mg 03/19/18 23:34 03/19/18 23:47 Reglan IV 03/19/18 23:35 10 mg ONETIME ONE Administration Ondansetron HCl 4 mg 03/19/18 21:51 03/19/18 22:01 Zofran IVPUSH 03/19/18 21:52 4 mg ONETIME ONE Administration Pantoprazole Sodium 80 mg 03/19/18 21:51 03/19/18 22:01 Protonix Iv IVPUSH 03/19/18 21:52 80 mg .BOLUS ONE Administration Departure - Departure Time of Disposition: 00:29 Disposition: Home, Self-Care 01 Condition: Good Clinical Impression: Cyclical vomiting Qualifiers: Vomiting Intractability: unspecified Nausea presence: with nausea Qualified Code(s): G43.A0 - Cyclical vomiting, not intractable - Discharge Information Referrals: PCP,None [Primary Care Provider] - Forms: ED Department Discharge Additional Instructions: The following information is given to patients seen in the emergency department who are being discharged to home. This information is to outline your options for follow-up care. We provide all patients seen in our emergency department with a follow-up referral. The need for follow-up, as well as the timing and circumstances, are variable depending upon the specifics of your emergency department visit. If you don't have a primary care physician on staff, we will provide you with a referral. We always advise you to contact your personal physician following an emergency department visit to inform them of the circumstance of the visit and for follow-up with them and/or the need for any referrals to a consulting specialist. The emergency department will also refer you to a specialist when appropriate. This referral assures that you have the opportunity for followup care with a specialist. All of these measure are taken in an effort to provide you with optimal care, which includes your followup. Under all circumstances we always encourage you to contact your private physician who remains a resource for coordinating your care. When calling for followup care, please make the office aware that this follow-up is from your recent emergency room visit. If for any reason you are refused follow-up, please contact the [facility] emergency department at and ask to speak to the emergency department charge nurse. [address] [place] [address] Rebolledo and schedule a follow-up with him and use medications as prescribed. Please take the Reglan with Benadryl 25-50 mg as this will help the medication work better. Push sips of clear liquids and bland bites of food and try to reduce and/or quit caffeine use as well as reduce and/or quit marijuana and smoking. Return to ER as needed and as discussed - My Orders Last 24 Hours: My Active Orders 03/19/18 21:51 Sodium Chloride 0.9% [Saline Flush] 10 ml FLUSH ASDIRECTED PRN Sodium Chloride 0.9% [Saline Flush] 2.5 ml FLUSH ASDIRECTED PRN Saline Lock Insert [OM.PC] Stat 03/19/18 21:56 Abdomen Series w Chest 1V [CR] Stat - Assessment/Plan Last 24 Hours: My Active Orders 03/19/18 21:51 Sodium Chloride 0.9% [Saline Flush] 10 ml FLUSH ASDIRECTED PRN Sodium Chloride 0.9% [Saline Flush] 2.5 ml FLUSH ASDIRECTED PRN Saline Lock Insert [OM.PC] Stat 03/19/18 21:56 Abdomen Series w Chest 1V [CR] Stat
[2018-03-19 22:35] LABS: CHLORIDE,CL 100 mmol/L (98-107); SODIUM,NA 140 mmol/L (136-148)
[2018-03-19] MEDS ORDERED: diphenhydrAMINE 50 MG/ML SDV IVPUSH ONE (23:34)
[2018-03-19] MEDS ORDERED: Metoclopramide 10 MG/2 ML SDV IV ONE (23:34)
[2018-03-20 01:03] VITALS: BP 134/74
--- NOTE | 2018-03-20 13:05 | CR ---
EXAM DATE: 03/19/18 PATIENT'S AGE: 28 Patient: AMY URIBE Facility: [place], [place] Site . Site : 1990 Study: XRay Chest/Abd/Pelvis acute series [id number] 10:33:06 PM Ordering Physician: Kamilla Silva Final Report: INDICATION: Vomiting blood TECHNIQUE: Chest and Abdominal radiograph 4 views COMPARISON: None FINDINGS: CHEST: Mediastinum: The mediastinum is normal in appearance. The heart silhouette is normal in size and morphology. Lung: There is an 8 mm ill-defined nodular density in the left apex. No sign of pleural effusion seen. No pneumothorax is identified. ABDOMEN: Bowel: The bowel gas pattern is normal without evidence of bowel obstruction. Soft tissue: No evidence of pneumoperitoneum present. No suspicious calcifications noted. Bone: Unremarkable for age. IMPRESSION: 1. There is an 8 mm ill-defined nodular density in the left apex. Comparison with any prior outside imaging is recommended. If these cannot be obtained, follow up chest radiograph in 3 months is warranted to document stability. Dictated by Rahul Chakraborty MD @ 03/19/2018 11:13:00 PM Dictated by: Rahul Chakraborty MD @ 03/19/2018 23:13:30 (Electronic Signature) Report Signed by Proxy. RONIT
== END 2018-03-20 00:50 | disposition home or self-care (01) ==
LOC: MW.ED 21:31
DX: G43.A0 Cyclical vomiting, in migraine, not intractable (principal); F17.210 Nicotine dependence, cigarettes, uncomplicated; Z96.22 Myringotomy tube(s) status
CPT/HCPCS: 36415; 74022; 80053; 80305; 81001; 82150; 83690; 85025; 96361; 96374; 96375; 99284; C9113; J1200; J2405; J2765; J7040

== ENCOUNTER 2018-03-22 22:35 | Observation (INO) | payer SELFPAY ==
[2018-03-22] MEDS ORDERED: Ondansetron 4 MG/2 ML SDV IVPUSH ONE (23:08)
[2018-03-22] MEDS ORDERED: LORazepam 2 MG/ML SDV IVPUSH ONE (23:08)
[2018-03-22] MEDS ORDERED: Ketorolac 30 MG/ML SDV IVPUSH ONE (23:08)
[2018-03-22] MEDS ORDERED: Sodium Chloride 0.9% 1,000 ML IV ONE (23:08)
[2018-03-22] MEDS ORDERED: Sodium Chloride 0.9% 2.5 ML Syringe FLUSH PRN (23:08)
[2018-03-22] MEDS ORDERED: Sodium Chloride 0.9% 10 ML Syringe FLUSH PRN (23:08)
[2018-03-22] MEDS ORDERED: diphenhydrAMINE 50 MG/ML SDV IVPUSH ONE (23:15)
--- NOTE | 2018-03-22 23:15 | EDM.PDOC ---
ED HPI GENERAL MEDICAL PROBLEM - General Chief Complaint: General Stated Complaint: PAIN ALL OVER Time Seen by Provider: 03/22/18 23:02 - History of Present Illness INITIAL COMMENTS - FREE TEXT/NARRATIVE: HISTORY AND PHYSICAL: History of present illness: The patient is a 28-year-old male who has had multiple ER visits and is well known to this provider for his recurrent cyclic vomiting and chronic marijuana use who presents today with upper abdominal cramping which seems to extend into his chest bilaterally and not having a bowel movement for over 4 days. The patient was here 3 days ago for vomiting and was treated with IV fluids IV meds including Reglan and was sent home on Reglan which she was instructed take with Benadryl. This has significantly helped his vomiting and he has been able to take fluids and bites of food. The patient says he has been compliant with taking it with the Benadryl. He has been having this upper abdominal cramping which extends into his chest starting today and they were concerned it was a reaction to the Reglan. He is also started taking some MiraLAX as he has not had a bowel movement in about 4 days. He's had no fevers chills shortness of breath cough or sinus congestion and has had normal urine output. The patient is not taking anything specifically for the pain. He has connected with his provider and has an appointment for follow-up at [facility]. He says that the discomfort in the upper abdomen and lower chest does not localize right or left. Review of systems: As per history of present illness and below otherwise all systems reviewed and negative. Past medical history: As per history of present illness and as reviewed below otherwise noncontributory. Surgical history: As per history of present illness and as reviewed below otherwise noncontributory. Social history: No reported history of drug or alcohol abuse. Family history: As per history of present illness and as reviewed below otherwise noncontributory. Physical exam: General: Well-developed well-nourished thin man who is nontoxic and vital signs are reviewed by me. HEENT: Atraumatic, normocephalic, negative for conjunctival pallor or scleral icterus, mucous membranes moist, throat clear, neck supple, nontender, trachea midline. Lungs: Clear to auscultation, breath sounds equal bilaterally, chest nontender. Heart: S1S2, regular rate and rhythm no overt murmurs Abdomen: Soft, nondistended, bowel sounds are very hypoactive and there is some mild upper abdominal tenderness on palpation without rebound or guarding.. Negative for masses or hepatosplenomegaly. Pelvis: Stable nontender. Genitourinary: Deferred. Rectal: Deferred. Extremities: Atraumatic, full range of motion without defects or deficits Neurovascular unremarkable. Neuro: Awake, alert, oriented. Cranial nerves II through XII unremarkable. Cerebellum unremarkable. Motor and sensory unremarkable throughout. Exam nonfocal. Diagnostics: CBC CMP lipase abdominal and chest x-rays Therapeutics: IV fluids Zofran Ativan Toradol Benadryl 0010:Dr. Moser is in the emergency department currently seeing another patient and is aware of the abnormal renal function on this patient. He has done some research and has said that he has had episodes in the past where he has become very dehydrated and has had bumps in BUN and creatinine. He would like to scan to be performed of the abdomen and pelvis plain in addition to her workup and we will plan for observation admission. Impression: Definitive disposition and diagnosis as appropriate pending reevaluation and review of above. Abdomen Pain Score (Numeric/FACES): 7 - Related Data Allergies Allergy/AdvReac Type Severity Reaction Status Date / Time No Known Allergies Allergy Verified 03/22/18 22:55 Home Meds: Home Meds Omeprazole Magnesium [Prilosec Otc] 40 mg PO BID 03/19/18 [History] Metoclopramide HCl [Reglan] 10 mg PO ASDIRECTED 03/22/18 [History] diphenhydrAMINE [Benadryl] 25 mg PO ASDIRECTED 03/22/18 [History] Past Medical History - Past Health History Medical/Surgical History: Denies Medical/Surgical History HEENT History: Reports: None Cardiovascular History: Reports: None Respiratory History: Reports: None Gastrointestinal History: Reports: GERD, Helicobacter Pylori Genitourinary History: Reports: None Musculoskeletal History: Reports: None Neurological History: Reports: None Psychiatric History: Reports: None Endocrine/Metabolic History: Reports: None Hematologic History: Reports: None Immunologic History: Reports: None Oncologic (Cancer) History: Reports: None Dermatologic History: Reports: None - Infectious Disease History Infectious Disease History: Reports: Chicken Pox - Past Surgical History Head Surgeries/Procedures: Reports: None HEENT Surgical History: Reports: Myringotomy w Tube(s) Cardiovascular Surgical History: Reports: None Respiratory Surgical History: Reports: None GI Surgical History: Reports: None Male Surgical History: Reports: None Endocrine Surgical History: Reports: None Neurological Surgical History: Reports: None Musculoskeletal Surgical History: Reports: Other (See Below) Other Musculoskeletal Surgeries/Procedures:: finger sx Dermatological Surgical History: Reports: None Social & Family History - Family History Family Medical History: Noncontributory Cardiac: Reports: Hypertension - Tobacco Use Smoking Status *Q: Current Some Day Smoker Years of Tobacco use: 10 Packs/Tins Daily: 0.1 - Caffeine Use Caffeine Use: Reports: Energy Drinks Caffeine Use Comment: 60 oz of soda/day - Recreational Drug Use Recreational Drug Use: Yes Recreational Drug Type: Reports: Marijuana/Hashish Recreational Drug Use Frequency: Daily ED ROS GENERAL - Review of Systems Review Of Systems: ROS reveals no pertinent complaints other than HPI. ED EXAM, GENERAL - Physical Exam Exam: See Below (see dictation) Course - Vital Signs Last Recorded V/S: Last Vital Signs Temp 36.8 C 03/23/18 00:56 Pulse 82 03/23/18 00:56 Resp 17 03/23/18 00:56 BP 140/100 H 03/23/18 00:56 Pulse Ox 98 03/23/18 00:56 - Orders/Labs/Meds Orders: Active Orders 24 hr Category Date Time Status Abdomen Pelvis wo Cont [CT] Stat Exams 03/23/18 00:07 Taken Abdomen Series w Chest 1V [CR] Stat Exams 03/22/18 23:08 Taken UA W/MICROSCOPIC [URIN] Stat Lab 03/23/18 00:04 Ordered Sodium Chloride 0.9% [Saline Flush] Med 03/22/18 23:08 Active 10 ml FLUSH ASDIRECTED PRN Sodium Chloride 0.9% [Saline Flush] Med 03/22/18 23:08 Active 2.5 ml FLUSH ASDIRECTED PRN Saline Lock Insert [OM.PC] Stat Oth 03/22/18 23:07 Ordered Medication Orders Sodium Chloride (Normal Saline) 1,000 mls @ 125 mls/hr IV ASDIRECTED FIORELLA Sodium Chloride (Normal Saline) 1,000 mls @ 125 mls/hr IV ASDIRECTED FIORELLA Ondansetron HCl (Zofran) 4 mg IVPUSH Q4H PRN PRN Reason: Nausea Promethazine HCl (Phenergan) 25 mg IM Q6H PRN PRN Reason: Nausea Sodium Chloride (Saline Flush) 10 ml FLUSH ASDIRECTED PRN PRN Reason: Keep Vein Open Sodium Chloride (Saline Flush) 2.5 ml FLUSH ASDIRECTED PRN PRN Reason: Keep Vein Open Labs: Laboratory Tests 03/22/18 03/22/18 Range/Units 23:15 23:15 WBC 11.63 H (4.0-11.0) K/uL RBC 6.78 H (4.50-5.90) M/uL Hgb 20.5 H (13.0-17.0) g/dL Hct 56.0 H (38.0-50.0) % MCV 82.6 (80.0-98.0) fL MCH 30.2 (27.0-32.0) pg MCHC 36.6 (31.0-37.0) g/dL RDW Std Deviation 35.6 (28.0-62.0) fl RDW Coeff of Teresa 12 (11.0-15.0) % Plt Count 184 (150-400) K/uL MPV 11.60 (7.40-12.00) fL Neut % (Auto) 66.5 (48.0-80.0) % Lymph % (Auto) 19.0 (16.0-40.0) % [place] % (Auto) 14.4 (0.0-15.0) % Eos % (Auto) 0.0 (0.0-7.0) % Baso % (Auto) 0.1 (0.0-1.5) % Neut # (Auto) 7.7 H (1.4-5.7) K/uL Lymph # (Auto) 2.2 (0.6-2.4) K/uL [place] # (Auto) 1.7 H (0.0-0.8) K/uL Eos # (Auto) 0.0 (0.0-0.7) K/uL Baso # (Auto) 0.0 (0.0-0.1) K/uL Nucleated RBC % 0.0 /100WBC Nucleated RBCs # 0 K/uL Sodium 124 L (136-148) mmol/L Potassium 3.9 (3.5-5.1) mmol/L Chloride 79 L (98-107) mmol/L Carbon Dioxide 24.7 (21.0-32.0) mmol/L BUN 71 H (7.0-18.0) mg/dL Creatinine 3.6 H (0.8-1.3) mg/dL Est Cr Clr Drug Dosing 22.94 mL/min Estimated GFR (MDRD) 20.6 ml/min Glucose 124 H (74-106) mg/dL Calcium 10.9 H (8.5-10.1) mg/dL Total Bilirubin 1.1 H (0.2-1.0) mg/dL AST 19 (15-37) IU/L ALT 37 (14-63) IU/L Alkaline Phosphatase 123 H (46-116) U/L Total Protein 10.9 H (6.4-8.2) g/dL Albumin 5.9 H (3.4-5.0) g/dL Globulin 5.0 H (2.6-4.0) g/dL Albumin/Globulin Ratio 1.2 (0.9-1.6) Lipase 130 (73-393) U/L Meds: Medications Generic Name Dose Route Start Last Admin Trade Name Freq PRN Reason Stop Dose Admin Sodium Chloride 1,000 mls @ 125 mls/hr 03/23/18 01:30 Normal Saline IV ASDIRECTED FIORELLA Sodium Chloride 1,000 mls @ 125 mls/hr 03/23/18 01:45 Normal Saline IV ASDIRECTED FIORELLA Ondansetron HCl 4 mg 03/23/18 01:37 Zofran IVPUSH Q4H PRN Nausea Promethazine HCl 25 mg 03/23/18 01:37 Phenergan IM Q6H PRN Nausea Sodium Chloride 10 ml 03/22/18 23:08 Saline Flush FLUSH ASDIRECTED PRN Keep Vein Open Sodium Chloride 2.5 ml 03/22/18 23:08 Saline Flush FLUSH ASDIRECTED PRN Keep Vein Open Discontinued Medications Generic Name Dose Route Start Last Admin Trade Name Freq PRN Reason Stop Dose Admin Diphenhydramine HCl 50 mg 03/22/18 23:15 03/22/18 23:24 Benadryl IVPUSH 03/22/18 23:16 50 mg ONETIME ONE Administration Sodium Chloride 1,000 mls @ 999 mls/hr 03/22/18 23:08 03/22/18 23:21 Normal Saline IV 03/23/18 00:08 999 mls/hr STAT ONE Administration Sodium Chloride 1,000 mls @ 999 mls/hr 03/23/18 00:41 03/23/18 01:07 Normal Saline IV 03/23/18 01:41 999 mls/hr STAT ONE Administration Ketorolac Tromethamine 30 mg 03/22/18 23:08 03/22/18 23:22 Toradol IVPUSH 03/22/18 23:09 30 mg ONETIME ONE Administration Lorazepam 1 mg 03/22/18 23:08 03/22/18 23:26 Ativan IVPUSH 03/22/18 23:09 1 mg ONETIME ONE Administration Ondansetron HCl 4 mg 03/22/18 23:08 03/22/18 23:21 Zofran IVPUSH 03/22/18 23:09 4 mg ONETIME ONE Administration Departure - Departure Time of Disposition: 00:00 Disposition: Refer to Observation Condition: Good Clinical Impression: Dehydration - Discharge Information - My Orders Last 24 Hours: My Active Orders 03/22/18 23:07 Saline Lock Insert [OM.PC] Stat 03/22/18 23:08 Abdomen Series w Chest 1V [CR] Stat Sodium Chloride 0.9% [Saline Flush] 10 ml FLUSH ASDIRECTED PRN Sodium Chloride 0.9% [Saline Flush] 2.5 ml FLUSH ASDIRECTED PRN 03/23/18 00:04 UA W/MICROSCOPIC [URIN] Stat 03/23/18 00:07 Abdomen Pelvis wo Cont [CT] Stat - Assessment/Plan Last 24 Hours: My Active Orders 03/22/18 23:07 Saline Lock Insert [OM.PC] Stat 03/22/18 23:08 Abdomen Series w Chest 1V [CR] Stat Sodium Chloride 0.9% [Saline Flush] 10 ml FLUSH ASDIRECTED PRN Sodium Chloride 0.9% [Saline Flush] 2.5 ml FLUSH ASDIRECTED PRN 03/23/18 00:04 UA W/MICROSCOPIC [URIN] Stat 03/23/18 00:07 Abdomen Pelvis wo Cont [CT] Stat
[2018-03-23] MEDS ORDERED: Sodium Chloride 0.9% 1,000 ML IV ONE (00:41)
[2018-03-23] MEDS ORDERED: Sodium Chloride 0.9% 1,000 ML IV SCH (01:45)
--- NOTE | 2018-03-23 01:45 | PCM.HP ---
H&P History of Present Illness - General Date of Service: 03/23/18 Admit Problem/Dx: Admission Diagnosis/Problem Admission Diagnosis/Problem Dehydration - History of Present Illness Initial Comments - Free Text/Narative: 28 yo male who presents with several day history of abdominal pain and nausea. Abdomen Pain Score (Numeric/FACES): 7 - Related Data Allergies/Adverse Reactions: Allergies Allergy/AdvReac Type Severity Reaction Status Date / Time No Known Allergies Allergy Verified 03/22/18 22:55 Home Medications: Home Meds Omeprazole Magnesium [Prilosec Otc] 40 mg PO BID 03/19/18 [History] Metoclopramide HCl [Reglan] 10 mg PO ASDIRECTED 03/22/18 [History] diphenhydrAMINE [Benadryl] 25 mg PO ASDIRECTED 03/22/18 [History] Past Medical History - Past Health History Medical/Surgical History: Denies Medical/Surgical History HEENT History: Reports: None Cardiovascular History: Reports: None Respiratory History: Reports: None Gastrointestinal History: Reports: GERD, Helicobacter Pylori Genitourinary History: Reports: None Musculoskeletal History: Reports: None Neurological History: Reports: None Psychiatric History: Reports: None Endocrine/Metabolic History: Reports: None Hematologic History: Reports: None Immunologic History: Reports: None Oncologic (Cancer) History: Reports: None Dermatologic History: Reports: None - Infectious Disease History Infectious Disease History: Reports: Chicken Pox - Past Surgical History Head Surgeries/Procedures: Reports: None HEENT Surgical History: Reports: Myringotomy w Tube(s) Cardiovascular Surgical History: Reports: None Respiratory Surgical History: Reports: None GI Surgical History: Reports: None Male Surgical History: Reports: None Endocrine Surgical History: Reports: None Neurological Surgical History: Reports: None Musculoskeletal Surgical History: Reports: Other (See Below) Other Musculoskeletal Surgeries/Procedures:: finger sx Dermatological Surgical History: Reports: None Social & Family History - Family History Family Medical History: Noncontributory Cardiac: Reports: Hypertension - Tobacco Use Smoking Status *Q: Current Some Day Smoker Years of Tobacco use: 10 Packs/Tins Daily: 0.1 - Caffeine Use Caffeine Use: Reports: Energy Drinks Caffeine Use Comment: 60 oz of soda/day - Recreational Drug Use Recreational Drug Use: Yes Recreational Drug Type: Reports: Marijuana/Hashish Recreational Drug Use Frequency: Daily H&P Review of Systems - Review of Systems: Review Of Systems: ROS reveals no pertinent complaints other than HPI. Exam - Exam Exam: See Below - Vital Signs Vital Signs: Last Vital Signs Temp 36.8 C 03/23/18 00:56 Pulse 82 03/23/18 00:56 Resp 17 03/23/18 00:56 BP 140/100 H 03/23/18 00:56 Pulse Ox 98 03/23/18 00:56 Weight: 52.163 kg - Exam General: Alert, Oriented Lungs: Clear to Auscultation, Normal Respiratory Effort Cardiovascular: Regular Rate, Regular Rhythm GI/Abdominal Exam: Soft, Non-Tender Extremities: No Pedal Edema Skin: Warm, Dry, Intact - Patient Data Lab Results Last 24 hrs: Laboratory Results - last 24 hr 03/22/18 03/22/18 Range/Units 23:15 23:15 WBC 11.63 H (4.0-11.0) K/uL RBC 6.78 H (4.50-5.90) M/uL Hgb 20.5 H (13.0-17.0) g/dL Hct 56.0 H (38.0-50.0) % MCV 82.6 (80.0-98.0) fL MCH 30.2 (27.0-32.0) pg MCHC 36.6 (31.0-37.0) g/dL RDW Std Deviation 35.6 (28.0-62.0) fl RDW Coeff of Teresa 12 (11.0-15.0) % Plt Count 184 (150-400) K/uL MPV 11.60 (7.40-12.00) fL Neut % (Auto) 66.5 (48.0-80.0) % Lymph % (Auto) 19.0 (16.0-40.0) % [place] % (Auto) 14.4 (0.0-15.0) % Eos % (Auto) 0.0 (0.0-7.0) % Baso % (Auto) 0.1 (0.0-1.5) % Neut # (Auto) 7.7 H (1.4-5.7) K/uL Lymph # (Auto) 2.2 (0.6-2.4) K/uL [place] # (Auto) 1.7 H (0.0-0.8) K/uL Eos # (Auto) 0.0 (0.0-0.7) K/uL Baso # (Auto) 0.0 (0.0-0.1) K/uL Nucleated RBC % 0.0 /100WBC Nucleated RBCs # 0 K/uL Sodium 124 L (136-148) mmol/L Potassium 3.9 (3.5-5.1) mmol/L Chloride 79 L (98-107) mmol/L Carbon Dioxide 24.7 (21.0-32.0) mmol/L BUN 71 H (7.0-18.0) mg/dL Creatinine 3.6 H (0.8-1.3) mg/dL Est Cr Clr Drug Dosing 22.94 mL/min Estimated GFR (MDRD) 20.6 ml/min Glucose 124 H (74-106) mg/dL Calcium 10.9 H (8.5-10.1) mg/dL Total Bilirubin 1.1 H (0.2-1.0) mg/dL AST 19 (15-37) IU/L ALT 37 (14-63) IU/L Alkaline Phosphatase 123 H (46-116) U/L Total Protein 10.9 H (6.4-8.2) g/dL Albumin 5.9 H (3.4-5.0) g/dL Globulin 5.0 H (2.6-4.0) g/dL Albumin/Globulin Ratio 1.2 (0.9-1.6) Lipase 130 (73-393) U/L Result Diagrams: 03/24/18 06:31 03/24/18 06:31 Problem List Initiated/Reviewed/Updated: Yes Orders Last 24hrs: Active Orders 24 hr Category Date Time Status Patient Status [ADT] Stat ADT 03/23/18 01:15 Active Oxygen Therapy [RC] PRN Care 03/23/18 01:37 Ordered Up ad Adriana [RC] ASDIRECTED Care 03/23/18 01:37 Ordered VTE/DVT Education [RC] PER UNIT ROUTINE Care 03/23/18 01:37 Ordered Vital Signs [RC] Q4H Care 03/23/18 01:37 Ordered Regular Diet [DIET] Diet 03/23/18 Breakfast Ordered Abdomen Pelvis wo Cont [CT] Stat Exams 03/23/18 00:07 Taken Abdomen Series w Chest 1V [CR] Stat Exams 01/11/19 23:08 Taken BASIC METABOLIC PANEL,BMP [CHEM] AM Lab 03/23/18 05:11 Ordered CBC WITH AUTO DIFF [HEME] AM Lab 03/23/18 05:11 Ordered UA W/MICROSCOPIC [URIN] Stat Lab 03/23/18 00:04 Ordered Ondansetron [Zofran] Med 03/23/18 01:37 Ordered 4 mg IVPUSH Q4H PRN Promethazine [Phenergan] Med 03/23/18 01:37 Ordered 25 mg IM Q6H PRN Sodium Chloride 0.9% @ 125 MLS/HR (1000ml) Med 03/23/18 01:45 Ordered Sodium Chloride 0.9% [Normal Saline] 1,000 ml IV ASDIRECTED Sodium Chloride 0.9% [Normal Saline] 1,000 ml Med 03/23/18 01:30 Active IV ASDIRECTED Sodium Chloride 0.9% [Saline Flush] Med 03/22/18 23:08 Active 10 ml FLUSH ASDIRECTED PRN Sodium Chloride 0.9% [Saline Flush] Med 03/22/18 23:08 Active 2.5 ml FLUSH ASDIRECTED PRN Saline Lock Insert [OM.PC] Stat Oth 03/22/18 23:07 Ordered Sequential Compression Device [OM.PC] Per Unit Routine Oth 03/23/18 01:38 Ordered Resuscitation Status Routine Resus Stat 03/23/18 01:37 Ordered Medication Orders Sodium Chloride (Normal Saline) 1,000 mls @ 125 mls/hr IV ASDIRECTED FIORELLA Sodium Chloride (Normal Saline) 1,000 mls @ 125 mls/hr IV ASDIRECTED FIORELLA Ondansetron HCl (Zofran) 4 mg IVPUSH Q4H PRN PRN Reason: Nausea Promethazine HCl (Phenergan) 25 mg IM Q6H PRN PRN Reason: Nausea Sodium Chloride (Saline Flush) 10 ml FLUSH ASDIRECTED PRN PRN Reason: Keep Vein Open Sodium Chloride (Saline Flush) 2.5 ml FLUSH ASDIRECTED PRN PRN Reason: Keep Vein Open Assessment/Plan Comment:: 28 yo male admitted with gastroenteritis, dehydration, acute kidney injury with hyponatremia. We will rescucitate with IV fluids and given antiemetic as needed.
[2018-03-23] MEDS: Ondansetron 4 MG/2 ML SDV IVPUSH PRN ×3 (06:26→20:42)
[2018-03-23] MEDS: Pantoprazole 40 MG Vial IVPUSH SCH (10:26)
[2018-03-23] MEDS: Sodium Chloride 0.9% 1,000 ML IV SCH ×2 (11:23→20:44)
[2018-03-23] MEDS: Promethazine 25 MG/ML SDV IM PRN (16:04)
[2018-03-23] MEDS ORDERED: Alum Hydrox/Mag Hydrox/Simeth 15 ML, Lidocaine 2% 5 ML PO ONE ×4 (21:38→21:44)
[2018-03-24] MEDS: Ondansetron 4 MG/2 ML SDV IVPUSH PRN ×2 (02:16→12:48)
[2018-03-24] MEDS: Promethazine 25 MG/ML SDV IM PRN (03:12)
[2018-03-24] MEDS: Sodium Chloride 0.9% 1,000 ML IV SCH (05:51)
[2018-03-24 06:53] LABS: CHLORIDE,CL 99 mmol/L (98-107); SODIUM,NA 133 mmol/L (136-148)
--- NOTE | 2018-03-24 08:41 | PCM.PN ---
- General Info Date of Service: 03/24/18 - Review of Systems Systems Review Comment:: vomited this morning but feeling better, passing gas but no stool - Patient Data Vitals - Most Recent: Last Vital Signs Temp 36.5 C 03/24/18 03:00 Pulse 70 03/24/18 03:00 Resp 18 03/24/18 03:00 BP 116/62 03/24/18 03:00 Pulse Ox 97 03/24/18 03:00 Weight - Most Recent: 52.163 kg I&O - Last 24 Hours: Intake & Output 03/23/18 03/24/18 03/24/18 22:59 06:59 14:59 Intake Total 2999 1135 Output Total 700 Balance 2299 1135 Lab Results Last 24 Hours: Laboratory Results - last 24 hr 03/24/18 03/24/18 Range/Units 06:31 06:31 WBC 9.24 (4.0-11.0) K/uL RBC 5.19 (4.50-5.90) M/uL Hgb 15.2 (13.0-17.0) g/dL Hct 43.0 (38.0-50.0) % MCV 82.9 (80.0-98.0) fL MCH 29.3 (27.0-32.0) pg MCHC 35.3 (31.0-37.0) g/dL RDW Std Deviation 34.2 (28.0-62.0) fl RDW Coeff of Teresa 11 (11.0-15.0) % Plt Count 131 L (150-400) K/uL MPV 11.10 (7.40-12.00) fL Neut % (Auto) 72.5 (48.0-80.0) % Lymph % (Auto) 18.5 (16.0-40.0) % [place] % (Auto) 8.7 (0.0-15.0) % Eos % (Auto) 0.2 (0.0-7.0) % Baso % (Auto) 0.1 (0.0-1.5) % Neut # (Auto) 6.7 H (1.4-5.7) K/uL Lymph # (Auto) 1.7 (0.6-2.4) K/uL [place] # (Auto) 0.8 (0.0-0.8) K/uL Eos # (Auto) 0.0 (0.0-0.7) K/uL Baso # (Auto) 0.0 (0.0-0.1) K/uL Nucleated RBC % 0.0 /100WBC Nucleated RBCs # 0 K/uL Sodium 133 L (136-148) mmol/L Potassium 3.9 (3.5-5.1) mmol/L Chloride 99 (98-107) mmol/L Carbon Dioxide 25.3 (21.0-32.0) mmol/L BUN 31 H (7.0-18.0) mg/dL Creatinine 0.9 (0.8-1.3) mg/dL Est Cr Clr Drug Dosing 91.77 mL/min Estimated GFR (MDRD) > 60.0 ml/min Glucose 87 (74-106) mg/dL Calcium 8.4 L (8.5-10.1) mg/dL Med Orders - Current: Current Medications Sodium Chloride (Normal Saline) 1,000 mls @ 125 mls/hr IV ASDIRECTED [facility] Last Admin: 03/24/18 05:51 Dose: 125 mls/hr Sodium Chloride (Normal Saline) 1,000 mls @ 125 mls/hr IV ASDIRECTED [facility] Last Admin: 03/23/18 02:38 Dose: 125 mls/hr Ondansetron HCl (Zofran) 4 mg IVPUSH Q4H PRN PRN Reason: Nausea Last Admin: 03/24/18 02:16 Dose: 4 mg Pantoprazole Sodium (Protonix Iv) 40 mg IVPUSH Q24H [facility] Last Admin: 03/23/18 10:26 Dose: 40 mg Promethazine HCl (Phenergan) 25 mg IM Q6H PRN PRN Reason: Nausea Last Admin: 03/24/18 03:12 Dose: 25 mg Sodium Chloride (Saline Flush) 10 ml FLUSH ASDIRECTED PRN PRN Reason: Keep Vein Open Sodium Chloride (Saline Flush) 2.5 ml FLUSH ASDIRECTED PRN PRN Reason: Keep Vein Open Discontinued Medications Al Hydroxide/Mg Hydroxide 15 (ml/ Lidocaine HCl 5 ml) 0 ml PO ONETIME ONE Stop: 03/23/18 21:39 Last Admin: 03/24/18 00:01 Dose: 20 each Al Hydroxide/Mg Hydroxide 15 (ml/ Lidocaine HCl 5 ml) 0 ml PO ONETIME ONE Stop: 03/23/18 21:45 Last Admin: 03/24/18 00:03 Dose: Not Given Diphenhydramine HCl (Benadryl) 50 mg IVPUSH ONETIME ONE Stop: 03/22/18 23:16 Last Admin: 03/22/18 23:24 Dose: 50 mg Sodium Chloride (Normal Saline) 1,000 mls @ 999 mls/hr IV STAT ONE Stop: 03/23/18 00:08 Last Admin: 03/22/18 23:21 Dose: 999 mls/hr Sodium Chloride (Normal Saline) 1,000 mls @ 999 mls/hr IV STAT ONE Stop: 03/23/18 01:41 Last Admin: 03/23/18 01:07 Dose: 999 mls/hr Influenza Virus Vaccine (Pharmacy To Dose - Influenza Vaccine) 1 each IM ONETIME ONE Stop: 03/23/18 07:00 Influenza Virus Vaccine (Fluzone Quad 1122-5766 Syringe) 60 mcg IM .ONCE ONE Stop: 03/23/18 10:01 Last Admin: 03/23/18 10:29 Dose: 60 mcg Ketorolac Tromethamine (Toradol) 30 mg IVPUSH ONETIME ONE Stop: 03/22/18 23:09 Last Admin: 03/22/18 23:22 Dose: 30 mg Lorazepam (Ativan) 1 mg IVPUSH ONETIME ONE Stop: 03/22/18 23:09 Last Admin: 03/22/18 23:26 Dose: 1 mg Ondansetron HCl (Zofran) 4 mg IVPUSH ONETIME ONE Stop: 03/22/18 23:09 Last Admin: 03/22/18 23:21 Dose: 4 mg - Exam General: Alert, Oriented Lungs: Clear to Auscultation, Normal Respiratory Effort Cardiovascular: Regular Rate, Regular Rhythm GI/Abdominal Exam: Soft, Non-Tender, No Distention Extremities: Non-Tender, No Pedal Edema Skin: Warm, Dry, Intact - Problem List Review Problem List Initiated/Reviewed/Updated: Yes - My Orders Last 24 Hours: My Active Orders 03/23/18 10:15 Pantoprazole [ProTONIX IV] 40 mg IVPUSH Q24H 03/24/18 08:38 Enema [RC] ASDIRECTED - Plan Plan:: 28 yo male admitted with gastroenteritis, dehydration, acute kidney injury with hyponatremia. Creatinine has normalized. Will continue antiemetics and advance diet as tolerated. Discharge home pending tolerating oral diet.
[2018-03-24] MEDS: Pantoprazole 40 MG Vial IVPUSH SCH (09:41)
[2018-03-24 12:02] VITALS: BP 128/61
--- NOTE | 2018-03-24 22:00 | PCM.DCSUM1 ---
Discharge Summary - Discharge Data Discharge Date: 03/24/18 Discharge Disposition: Home, Self-Care 01 Condition: Good - Patient Summary/Data Hospital Course: 28 yo male who presents with several day history of abdominal pain and nausea. He was admitted for gastroenteritis, dehydration and acute kidney injury. His sodium was 127 and creatinine 3.6. He had work up including a normal CT scan of the abdomen. He was treat with IV fluids and antiemetics. His creatinine had normalized and symptoms improved at time of discharge. - Discharge Plan Home Medications: Home Meds Omeprazole Magnesium [Prilosec Otc] 40 mg PO BID 03/19/18 [History] Metoclopramide HCl [Reglan] 10 mg PO ASDIRECTED 03/22/18 [History] diphenhydrAMINE [Benadryl] 25 mg PO ASDIRECTED 03/22/18 [History] Patient Handouts: Nausea and Vomiting, Adult, [id number], Dehydration, Adult , [id number] Referrals: Uriel Rebolledo MD [Primary Care Provider] - - Discharge Summary/Plan Comment DC Time >30 min.: No - Patient Data Vitals - Most Recent: Last Vital Signs Temp 37.3 C 03/24/18 12:00 Pulse 63 03/24/18 12:00 Resp 14 03/24/18 12:00 BP 128/61 03/24/18 12:00 Pulse Ox 95 03/24/18 12:00 Weight - Most Recent: 52.163 kg I&O - Last 24 hours: Intake & Output 03/24/18 03/24/18 03/24/18 06:59 14:59 22:59 Intake Total 1135 1200 Output Total 400 Balance 1135 800 Lab Results - Last 24 hrs: Laboratory Results - last 24 hr 03/24/18 03/24/18 Range/Units 06:31 06:31 WBC 9.24 (4.0-11.0) K/uL RBC 5.19 (4.50-5.90) M/uL Hgb 15.2 (13.0-17.0) g/dL Hct 43.0 (38.0-50.0) % MCV 82.9 (80.0-98.0) fL MCH 29.3 (27.0-32.0) pg MCHC 35.3 (31.0-37.0) g/dL RDW Std Deviation 34.2 (28.0-62.0) fl RDW Coeff of Teresa 11 (11.0-15.0) % Plt Count 131 L (150-400) K/uL MPV 11.10 (7.40-12.00) fL Neut % (Auto) 72.5 (48.0-80.0) % Lymph % (Auto) 18.5 (16.0-40.0) % Miner % (Auto) 8.7 (0.0-15.0) % Eos % (Auto) 0.2 (0.0-7.0) % Baso % (Auto) 0.1 (0.0-1.5) % Neut # (Auto) 6.7 H (1.4-5.7) K/uL Lymph # (Auto) 1.7 (0.6-2.4) K/uL Miner # (Auto) 0.8 (0.0-0.8) K/uL Eos # (Auto) 0.0 (0.0-0.7) K/uL Baso # (Auto) 0.0 (0.0-0.1) K/uL Nucleated RBC % 0.0 /100WBC Nucleated RBCs # 0 K/uL Sodium 133 L (136-148) mmol/L Potassium 3.9 (3.5-5.1) mmol/L Chloride 99 (98-107) mmol/L Carbon Dioxide 25.3 (21.0-32.0) mmol/L BUN 31 H (7.0-18.0) mg/dL Creatinine 0.9 (0.8-1.3) mg/dL Est Cr Clr Drug Dosing 91.77 mL/min Estimated GFR (MDRD) > 60.0 ml/min Glucose 87 (74-106) mg/dL Calcium 8.4 L (8.5-10.1) mg/dL Med Orders - Current: Current Medications Discontinued Medications Al Hydroxide/Mg Hydroxide 15 (ml/ Lidocaine HCl 5 ml) 0 ml PO ONETIME ONE Stop: 03/23/18 21:39 Last Admin: 03/24/18 00:01 Dose: 20 each Al Hydroxide/Mg Hydroxide 15 (ml/ Lidocaine HCl 5 ml) 0 ml PO ONETIME ONE Stop: 03/23/18 21:45 Last Admin: 03/24/18 00:03 Dose: Not Given Diphenhydramine HCl (Benadryl) 50 mg IVPUSH ONETIME ONE Stop: 03/22/18 23:16 Last Admin: 03/22/18 23:24 Dose: 50 mg Sodium Chloride (Normal Saline) 1,000 mls @ 999 mls/hr IV STAT ONE Stop: 03/23/18 00:08 Last Admin: 03/22/18 23:21 Dose: 999 mls/hr Sodium Chloride (Normal Saline) 1,000 mls @ 999 mls/hr IV STAT ONE Stop: 03/23/18 01:41 Last Admin: 03/23/18 01:07 Dose: 999 mls/hr Sodium Chloride (Normal Saline) 1,000 mls @ 125 mls/hr IV ASDIRECTED [facility] Last Admin: 03/24/18 05:51 Dose: 125 mls/hr Sodium Chloride (Normal Saline) 1,000 mls @ 125 mls/hr IV ASDIRECTED [facility] Last Admin: 03/23/18 02:38 Dose: 125 mls/hr Influenza Virus Vaccine (Pharmacy To Dose - Influenza Vaccine) 1 each IM ONETIME ONE Stop: 03/23/18 07:00 Influenza Virus Vaccine (Fluzone Quad [id number] Syringe) 60 mcg IM .ONCE ONE Stop: 03/23/18 10:01 Last Admin: 03/23/18 10:29 Dose: 60 mcg Ketorolac Tromethamine (Toradol) 30 mg IVPUSH ONETIME ONE Stop: 03/22/18 23:09 Last Admin: 03/22/18 23:22 Dose: 30 mg Lorazepam (Ativan) 1 mg IVPUSH ONETIME ONE Stop: 03/22/18 23:09 Last Admin: 03/22/18 23:26 Dose: 1 mg Ondansetron HCl (Zofran) 4 mg IVPUSH ONETIME ONE Stop: 03/22/18 23:09 Last Admin: 03/22/18 23:21 Dose: 4 mg Ondansetron HCl (Zofran) 4 mg IVPUSH Q4H PRN PRN Reason: Nausea Last Admin: 03/24/18 12:48 Dose: 4 mg Pantoprazole Sodium (Protonix Iv) 40 mg IVPUSH Q24H [facility] Last Admin: 03/24/18 09:41 Dose: 40 mg Promethazine HCl (Phenergan) 25 mg IM Q6H PRN PRN Reason: Nausea Last Admin: 03/24/18 03:12 Dose: 25 mg Sodium Chloride (Saline Flush) 10 ml FLUSH ASDIRECTED PRN PRN Reason: Keep Vein Open Sodium Chloride (Saline Flush) 2.5 ml FLUSH ASDIRECTED PRN PRN Reason: Keep Vein Open
--- NOTE | 2018-03-25 15:26 | CR ---
EXAM DATE: 03/23/18 PATIENT'S AGE: 28 Patient: AMY URIBE Facility: [place], [place] Site . Site : 1990 Study: XRay Abdomen x/Chest [id number] 12:27:53 AM Ordering Physician: Kamilla Silva Final Report: Indication: Pain Technique: Chest and abdomen 2 view. Comparison: March 2018 Findings: Chest: Heart size and pulmonary vasculature are normal. Lungs and pleural spaces are clear. Bowel: Bowel pattern is normal. Soft tissues: No sign of free air. No sign of soft tissue mass. No suspicious calcifications. Bones: Unremarkable for age. Impression: Unremarkable chest and abdomen. Nodular density seen in the left upper lobe on the prior study is no longer present. Dictated by Aram Ward MD @ Mar 23 2018 12:28AM (Electronic Signature) Report Signed by Proxy. RONIT
--- NOTE | 2018-03-25 15:27 | CT ---
EXAM DATE: 03/23/18 PATIENT'S AGE: 28 Patient: AMY URIBE Facility: [place], [place] Site . Site : 1990 Study: CT Abdomen/Pelvis [id number]/[id number] 12:28:15 AM Ordering Physician: Kamilla Silva Final Report: INDICATION: Abdominal pain. TECHNIQUE: CT abdomen and pelvis without contrast. COMPARISON: January 25, 2017. FINDINGS: Lower chest: Unremarkable. Liver: Normal in size and attenuation. No masses. Gallbladder and bile ducts: No stones or inflammation. No biliary dilatation. Pancreas: Unremarkable. No mass or inflammation. Spleen: Normal in size. No masses. Adrenal glands: Normal in size. No nodules. Kidneys: Normal in size. No masses, stones, or hydronephrosis. GI tract: Unremarkable. Normal in caliber. No sign of mass or inflammation. Normal appendix. Vasculature: Unremarkable. Lymph nodes: No lymphadenopathy. Abdominal wall/Omentum/Peritoneum: Unremarkable. No sign of mass or infiltration. No free air or significant free fluid. Pelvis: Unremarkable. No pelvic masses. Bones: Unremarkable for age. IMPRESSION: Unremarkable CT of the abdomen and pelvis. No findings to explain abdominal pain. Please note that all CT scans at this facility use dose modulation, iterative reconstruction, and/or weight-based dosing when appropriate to reduce radiation dose to as low as reasonably achievable. Dictated by Aram Ward MD @ Mar 23 2018 1:00AM (Electronic Signature) Report Signed by Proxy. [facility]ITAL[facility]
== END 2018-03-24 17:00 | disposition home or self-care (01) ==
LOC: MW.ED 22:35 → MW.MS 03-23 01:15
PROVIDERS: ADMIT Internal Medicine; ATTEND Internal Medicine
DX: K52.9 Noninfective gastroenteritis and colitis, unspecified (principal); E87.1 Hypo-osmolality and hyponatremia; E86.0 Dehydration; N17.9 Acute kidney failure, unspecified; K21.9 Gastro-esophageal reflux disease without esophagitis; F17.200 Nicotine dependence, unspecified, uncomplicated; Z79.899 Other long term (current) drug therapy
CPT/HCPCS: 36415; 74022; 74176; 80048; 80053; 81001; 83690; 85025; 90686; 96361; 96372; 96374; 96375; 96376; 99285; A9270; C9113; G0008; G0378; J1200; J1885; J2060; J2405; J2550; J7040; 99284

== ENCOUNTER 2019-01-24 12:27 | Emergency (ER) | payer SELFPAY ==
[2019-01-24] MEDS ORDERED: Sodium Chloride 0.9% 2.5 ML Syringe FLUSH PRN (12:42)
[2019-01-24] MEDS ORDERED: Sodium Chloride 0.9% 10 ML Syringe FLUSH PRN (12:42)
--- NOTE | 2019-01-24 12:54 | EDM.PDOC ---
ED HPI GENERAL MEDICAL PROBLEM - General Chief Complaint: Chest Pain Stated Complaint: CHEST PAIN,THROWING UP, SHORTNESS OF BREATHE Time Seen by Provider: 01/24/19 12:44 - History of Present Illness INITIAL COMMENTS - FREE TEXT/NARRATIVE: HISTORY AND PHYSICAL: History of present illness: Patient 29-year-old white male presents with concern of chest pain this is vaguely described without associated service breath palpitations or diaphoresis he has no other complaints is been no trauma denies fever chills Review of systems: As per history of present illness and below otherwise all systems reviewed and negative. Past medical history: As per history of present illness and as reviewed below otherwise noncontributory. Surgical history: As per history of present illness and as reviewed below otherwise noncontributory. Social history: No reported history of drug or alcohol abuse. Family history: As per history of present illness and as reviewed below otherwise noncontributory. Physical exam: HEENT: Atraumatic, normocephalic, pupils reactive, negative for conjunctival pallor or scleral icterus, mucous membranes moist, throat clear, neck supple, nontender, trachea midline. Lungs: Clear to auscultation, breath sounds equal bilaterally, chest nontender. Heart: S1S2, regular, negative for clicks, rubs, or JVD. Abdomen: Soft, nondistended, nontender. Negative for masses or hepatosplenomegaly. Negative for costovertebral tenderness. Pelvis: Stable nontender. Genitourinary: Deferred. Rectal: Deferred. Extremities: Atraumatic, negative for cords or calf pain. Neurovascular unremarkable. Neuro: Awake, alert, oriented. Cranial nerves II through XII unremarkable. Cerebellum unremarkable. Motor and sensory unremarkable throughout. Exam nonfocal. Diagnostics: Chest x-ray EKG Therapeutics: None Impression: #1 atypical chest pain Definitive disposition and diagnosis as appropriate pending reevaluation and review of above. Chest Pain Score (Numeric/FACES): 8 - Related Data Allergies Allergy/AdvReac Type Severity Reaction Status Date / Time No Known Allergies Allergy Verified 01/24/19 12:35 Home Meds: Home Meds Omeprazole Magnesium [Prilosec Otc] 40 mg PO BID 03/19/18 [History] diphenhydrAMINE [Benadryl] 25 mg PO ASDIRECTED 03/22/18 [History] Past Medical History - Past Health History Medical/Surgical History: Denies Medical/Surgical History HEENT History: Reports: None Cardiovascular History: Reports: None Respiratory History: Reports: None Gastrointestinal History: Reports: GERD, Helicobacter Pylori Genitourinary History: Reports: None Musculoskeletal History: Reports: None Neurological History: Reports: None Psychiatric History: Reports: None Endocrine/Metabolic History: Reports: None Hematologic History: Reports: None Immunologic History: Reports: None Oncologic (Cancer) History: Reports: None Dermatologic History: Reports: None - Infectious Disease History Infectious Disease History: Reports: Chicken Pox - Past Surgical History Head Surgeries/Procedures: Reports: None HEENT Surgical History: Reports: Myringotomy w Tube(s) Cardiovascular Surgical History: Reports: None Respiratory Surgical History: Reports: None GI Surgical History: Reports: None Male Surgical History: Reports: None Endocrine Surgical History: Reports: None Neurological Surgical History: Reports: None Musculoskeletal Surgical History: Reports: Other (See Below) Other Musculoskeletal Surgeries/Procedures:: finger sx Dermatological Surgical History: Reports: None Social & Family History - Family History Family Medical History: Noncontributory Cardiac: Reports: Hypertension - Caffeine Use Caffeine Use: Reports: Coffee, Soda Caffeine Use Comment: 60 oz of soda/day - Recreational Drug Use Recreational Drug Use: Yes Drug Use in Last 12 Months: Yes Recreational Drug Type: Reports: Marijuana/Hashish Recreational Drug Use Frequency: Daily ED ROS GENERAL - Review of Systems Review Of Systems: Comprehensive ROS is negative, except as noted in HPI. ED EXAM, GENERAL - Physical Exam Exam: See Below (See dictation) Course - Vital Signs Last Recorded V/S: Last Vital Signs Temp 36.4 C 01/24/19 12:35 Pulse 88 01/24/19 12:35 Resp 19 01/24/19 12:35 BP 141/96 H 01/24/19 12:35 Pulse Ox 96 01/24/19 12:35 - Orders/Labs/Meds Orders: Active Orders 24 hr Category Date Time Status EKG Documentation Completion [RC] STAT Care 01/24/19 12:42 Active Chest 1V Frontal [CR] Stat Exams 01/24/19 12:42 Ordered Departure - Departure Time of Disposition: 12:53 Disposition: Home, Self-Care 01 Condition: Good Clinical Impression: Atypical chest pain - Discharge Information Referrals: Uriel Rebolledo MD [Primary Care Provider] - Additional Instructions: The following information is given to patients seen in the emergency department who are being discharged to home. This information is to outline your options for follow-up care. We provide all patients seen in our emergency department with a follow-up referral. The need for follow-up, as well as the timing and circumstances, are variable depending upon the specifics of your emergency department visit. If you don't have a primary care physician on staff, we will provide you with a referral. We always advise you to contact your personal physician following an emergency department visit to inform them of the circumstance of the visit and for follow-up with them and/or the need for any referrals to a consulting specialist. The emergency department will also refer you to a specialist when appropriate. This referral assures that you have the opportunity for followup care with a specialist. All of these measure are taken in an effort to provide you with optimal care, which includes your followup. Under all circumstances we always encourage you to contact your private physician who remains a resource for coordinating your care. When calling for followup care, please make the office aware that this follow-up is from your recent emergency room visit. If for any reason you are refused follow-up, please contact the [facility] emergency department at and asked to speak to the emergency department charge nurse. [facility] [address] [place] [id number] Follow-up primary medical doctor and/or clinic above return as needed as discussed
--- NOTE | 2019-01-24 13:34 | CR ---
Chest: Portable view of the chest was obtained. Comparison: Prior chest x-ray of 03/22/18. Heart size and mediastinum are normal. Lungs are clear. Bony structures are grossly intact. Impression: Nothing acute is appreciated on AP portable chest x-ray. Diagnostic code #1 MTDD
[2019-01-24 13:39] VITALS: BP 106/79; PULSE 121
== END 2019-01-24 13:39 | disposition home or self-care (01) ==
LOC: MW.ED 12:27
DX: R07.89 Other chest pain (principal)
CPT/HCPCS: 71045; 71045-26; 93005; 99283; 99285-25

== ENCOUNTER 2019-03-04 11:13 | Emergency (ER) | payer SELFPAY ==
[2019-03-04] MEDS ORDERED: Ondansetron 4 MG/2 ML SDV IVPUSH ONE (11:17)
[2019-03-04] MEDS ORDERED: Sodium Chloride 0.9% 1,000 ML IV ONE ×3 (11:17→14:35)
[2019-03-04] MEDS ORDERED: Ondansetron 4 MG Tab.DIS PO ONE (12:16)
[2019-03-04] MEDS ORDERED: Ondansetron 4 MG Tab.DIS ONE (12:17)
--- NOTE | 2019-03-04 12:41 | EDM.PDOC ---
ED HPI GENERAL MEDICAL PROBLEM - General Chief Complaint: Gastrointestinal Problem Stated Complaint: VOMITING Time Seen by Provider: 03/04/19 11:19 Source of Information: Reports: Patient History Limitations: Reports: No Limitations - History of Present Illness INITIAL COMMENTS - FREE TEXT/NARRATIVE: HISTORY AND PHYSICAL: History of present illness: Patient is a 29-year-old male who presents to the emergency room today with complaints of nausea and vomiting 4 days. He denies any specific abdominal pain rather states he is "sore" from vomiting so frequently. He states he has not been able to keep "anything down" in several days. Patient denies any fever , chills, headache, change in vision, syncope or near syncope. Denies any chest pain, back pain, shortness of breath or cough. Denies any abdominal pain, nausea , vomiting, diarrhea, constipation or dysuria. Has not noted any blood in urine or stool. Patient has been eating and drinking appropriately. Review of systems: As per history of present illness and below otherwise all systems reviewed and negative. Past medical history: As per history of present illness and as reviewed below otherwise noncontributory. Surgical history: As per history of present illness and as reviewed below otherwise noncontributory. Social history: See social history for further information Family history: As per history of present illness and as reviewed below otherwise noncontributory. Physical exam: General: Well-developed and well nourished 29-year-old male. Alert and oriented. Nontoxic appearing and in no acute distress. HEENT: Atraumatic, normocephalic, pupils equal and reactive bilaterally, negative for conjunctival pallor or scleral icterus, mucous membranes dry, TMs normal bilaterally, throat clear, neck supple, nontender, trachea midline. No drooling or trismus noted. No meningeal signs. No hot potato voice noted. Lungs: Clear to auscultation, breath sounds equal bilaterally, chest nontender. Heart: S1S2, regular rate and rhythm without overt murmur Abdomen: Soft, nondistended, diffuse nonspecific abdominal tenderness in all 4 quadrants. Negative for masses or hepatosplenomegaly. Negative for costovertebral tenderness. Pelvis: Stable nontender. Skin: Intact, warm, dry. No lesions or rashes noted. Extremities: Atraumatic, moves all extremities per self without difficulty or deficits, negative for cords or calf pain. Neurovascular unremarkable. Neuro: Awake, alert, oriented. Cranial nerves II through XII unremarkable. Cerebellum unremarkable. Motor and sensory unremarkable throughout. Exam nonfocal. Notes: Reviewing the patient's past medical history does appear that he has been seen before for similar symptoms. He has a history of marijuana use and cyclic vomiting. Does appear that he has been admitted before for this. Patient does admit to smoking marijuana although states he hasn't in a few days. Denies any other drug use or recent alcohol usage. CT of the abdomen and pelvis shows no acute findings. Patient has multiple lab abnormalities which is likely due to his dehydration. Since the Zofran the patient has been drinking without any nausea or vomiting. Dr Shapr was involved in this case. Dr Salazar was consulted and agreeable to keeping patient for observation admission for IV fluids and further monitoring. Diagnostics: CBC, CMP, Lipase, UA, Drug Screen, CT abdomen/pelvis Therapeutics: IV fluids, Zofran Impression: Dehydration Plan: Observation admission to med/surg Definitive disposition and diagnosis as appropriate pending reevaluation and review of above. - Related Data Allergies Allergy/AdvReac Type Severity Reaction Status Date / Time No Known Allergies Allergy Verified 03/04/19 11:34 Home Meds: Home Meds Omeprazole Magnesium [Prilosec Otc] 40 mg PO BID 03/19/18 [History] Past Medical History - Past Health History Medical/Surgical History: Denies Medical/Surgical History HEENT History: Reports: None Cardiovascular History: Reports: None Respiratory History: Reports: None Gastrointestinal History: Reports: GERD, Helicobacter Pylori Genitourinary History: Reports: None Musculoskeletal History: Reports: None Neurological History: Reports: None Psychiatric History: Reports: None Endocrine/Metabolic History: Reports: None Hematologic History: Reports: None Immunologic History: Reports: None Oncologic (Cancer) History: Reports: None Dermatologic History: Reports: None - Infectious Disease History Infectious Disease History: Reports: None - Past Surgical History Head Surgeries/Procedures: Reports: None HEENT Surgical History: Reports: Myringotomy w Tube(s) Cardiovascular Surgical History: Reports: None Respiratory Surgical History: Reports: None GI Surgical History: Reports: None Male Surgical History: Reports: None Endocrine Surgical History: Reports: None Neurological Surgical History: Reports: None Musculoskeletal Surgical History: Reports: Other (See Below) Other Musculoskeletal Surgeries/Procedures:: finger sx Dermatological Surgical History: Reports: None Social & Family History - Family History Family Medical History: Noncontributory Cardiac: Reports: Hypertension - Tobacco Use Smoking Status *Q: Former Smoker Used Tobacco, but Quit: Yes Month/Year Tobacco Last Used: 2018 - Caffeine Use Caffeine Use: Reports: Coffee Caffeine Use Comment: 60 oz of soda/day - Recreational Drug Use Recreational Drug Use: Yes Recreational Drug Type: Reports: Marijuana/Hashish Recreational Drug Use Frequency: Socially ED ROS GENERAL - Review of Systems Review Of Systems: Comprehensive ROS is negative, except as noted in HPI. ED EXAM, GI/ABD - Physical Exam Exam: See Below (See dictation) Course - Vital Signs Last Recorded V/S: Last Vital Signs Temp 97.3 F 03/04/19 14:20 Pulse 86 03/04/19 14:20 Resp 18 03/04/19 14:20 BP 135/90 03/04/19 14:20 Pulse Ox 99 03/04/19 14:20 - Orders/Labs/Meds Orders: Active Orders 24 hr Category Date Time Status Admission Status [Patient Status] [ADT] Stat ADT 03/04/19 15:41 Active EKG Documentation Completion [RC] STAT Care 03/04/19 13:33 Active CULTURE BLOOD [BC] Stat Lab 03/04/19 13:40 Received CULTURE BLOOD [BC] Stat Lab 03/04/19 14:14 Results DRUG SCREEN, URINE [URCHEM] Stat Lab 03/04/19 13:32 Ordered UA RFX ANTHONY AND CULT IF INDIC [URIN] Stat Lab 03/04/19 13:32 Ordered Blood Culture x2 Reflex Set [OM.PC] Stat Oth 03/04/19 13:34 Ordered Labs: Laboratory Tests 03/04/19 03/04/19 03/04/19 Range/Units 12:35 12:35 13:40 WBC 17.01 H (4.0-11.0) K/uL RBC 6.36 H (4.50-5.90) M/uL Hgb 19.2 H (13.0-17.0) g/dL Hct 51.3 H (38.0-50.0) % MCV 80.7 (80.0-98.0) fL MCH 30.2 (27.0-32.0) pg MCHC 37.4 H (31.0-37.0) g/dL RDW Std Deviation 36.2 (28.0-62.0) fl RDW Coeff of Teresa 12 (11.0-15.0) % Plt Count 220 (150-400) K/uL MPV 11.40 (7.40-12.00) fL Add Manual Diff YES Neutrophils % (Manual) 76 (48.0-80.0) % Lymphocytes % (Manual) 17 (16.0-40.0) % Monocytes % (Manual) 7 (0.0-15.0) % Nucleated RBC % 0.0 /100WBC Absolute Seg Neuts 12.9 H (1.4-5.7) Lymphocytes # (Manual) 2.9 H (0.6-2.4) Monocytes # (Manual) 1.2 H (0.0-0.8) Nucleated RBCs # 0 K/uL Lactate (0.20-2.00) mmol/L Sodium 124 L (136-148) mmol/L Potassium 5.3 H (3.5-5.1) mmol/L Chloride 84 L (98-107) mmol/L Carbon Dioxide 27.8 (21.0-32.0) mmol/L BUN 73 H (7.0-18.0) mg/dL Creatinine 1.5 H (0.8-1.3) mg/dL Est Cr Clr Drug Dosing 56.95 mL/min Estimated GFR (MDRD) 56.1 ml/min Glucose 93 (74-106) mg/dL Calcium 10.2 H (8.5-10.1) mg/dL Magnesium 3.5 H (1.8-2.4) mg/dL Total Bilirubin 1.3 H (0.2-1.0) mg/dL AST 21 (15-37) IU/L ALT 22 (14-63) IU/L Alkaline Phosphatase 92 (46-116) U/L Creatine Kinase 604 H (26-308) U/L Total Protein 9.3 H (6.4-8.2) g/dL Albumin 5.7 H (3.4-5.0) g/dL Globulin 3.6 (2.6-4.0) g/dL Albumin/Globulin Ratio 1.6 (0.9-1.6) Lipase 144 (73-393) U/L 03/04/ Range/Units 13:40 WBC (4.0-11.0) K/uL RBC (4.50-5.90) M/uL Hgb (13.0-17.0) g/dL Hct (38.0-50.0) % MCV (80.0-98.0) fL MCH (27.0-32.0) pg MCHC (31.0-37.0) g/dL RDW Std Deviation (28.0-62.0) fl RDW Coeff of Teresa (11.0-15.0) % Plt Count (150-400) K/uL MPV (7.40-12.00) fL Add Manual Diff Neutrophils % (Manual) (48.0-80.0) % Lymphocytes % (Manual) (16.0-40.0) % Monocytes % (Manual) (0.0-15.0) % Nucleated RBC % /100WBC Absolute Seg Neuts (1.4-5.7) Lymphocytes # (Manual) (0.6-2.4) Monocytes # (Manual) (0.0-0.8) Nucleated RBCs # K/uL Lactate 1.7 (0.20-2.00) mmol/L Sodium (136-148) mmol/L Potassium (3.5-5.1) mmol/L Chloride (98-107) mmol/L Carbon Dioxide (21.0-32.0) mmol/L BUN (7.0-18.0) mg/dL Creatinine (0.8-1.3) mg/dL Est Cr Clr Drug Dosing mL/min Estimated GFR (MDRD) ml/min Glucose (74-106) mg/dL Calcium (8.5-10.1) mg/dL Magnesium (1.8-2.4) mg/dL Total Bilirubin (0.2-1.0) mg/dL AST (15-37) IU/L ALT (14-63) IU/L Alkaline Phosphatase (46-116) U/L Creatine Kinase (26-308) U/L Total Protein (6.4-8.2) g/dL Albumin (3.4-5.0) g/dL Globulin (2.6-4.0) g/dL Albumin/Globulin Ratio (0.9-1.6) Lipase (73-393) U/L Meds: Medications Discontinued Medications Generic Name Dose Route Start Last Admin Trade Name Sugey PRN Reason Stop Dose Admin Sodium Chloride 1,000 mls @ 999 mls/hr 03/04/19 11:17 03/04/19 12:15 Normal Saline IV 03/04/19 12:17 Not Given STAT ONE Sodium Chloride 1,000 mls @ 999 mls/hr 03/04/19 13:32 03/04/19 13:52 Normal Saline IV 03/04/19 14:32 999 mls/hr STAT ONE Administration Sodium Chloride 1,000 mls @ 999 mls/hr 03/04/19 14:35 03/04/19 15:39 Normal Saline IV 03/04/19 15:35 999 mls/hr STAT ONE Administration Iopamidol 70 ml 03/04/19 14:39 03/04/19 14:39 Isovue Multipack-370 (76%) IVPUSH 03/04/19 14:40 70 ml ONETIME ONE Administration Ondansetron HCl 4 mg 03/04/19 11:17 03/04/19 12:16 Zofran IVPUSH 03/04/19 11:18 Not Given ONETIME ONE Ondansetron HCl 4 mg 03/04/19 12:16 03/04/19 12:29 Zofran Odt PO 03/04/19 12:17 4 mg ONETIME ONE Administration Ondansetron HCl Confirm 03/04/19 12:17 03/04/19 13:24 Zofran Odt Administered 03/04/19 12:18 Not Given Dose 4 mg .ROUTE .STK-MED ONE Departure - Departure Time of Disposition: 15:52 Disposition: Refer to Observation Clinical Impression: Dehydration - Discharge Information Referrals: Uriel Rebolledo MD [Primary Care Provider] - Forms: ED Department Discharge Sepsis Event Note - Evaluation Sepsis Screening Result: No Definite Risk - Focused Exam Vital Signs: Vital Signs Temp Pulse Resp BP Pulse Ox 03/04/19 14:20 97.3 F 86 18 135/90 99 03/04/19 11:35 99.3 F 120 H 18 159/96 H 99 Date Exam was Performed: 03/04/19 Time Exam was Performed: 15:48 - My Orders Last 24 Hours: My Active Orders 03/04/19 13:32 DRUG SCREEN, URINE [URCHEM] Stat UA RFX ANTHONY AND CULT IF INDIC [URIN] Stat 03/04/19 13:33 EKG Documentation Completion [RC] STAT 03/04/19 13:34 Blood Culture x2 Reflex Set [OM.PC] Stat 03/04/19 13:40 CULTURE BLOOD [BC] Stat 03/04/19 14:14 CULTURE BLOOD [BC] Stat 03/04/19 15:41 Admission Status [Patient Status] [ADT] Stat - Assessment/Plan Last 24 Hours: My Active Orders 03/04/19 13:32 DRUG SCREEN, URINE [URCHEM] Stat UA RFX ANTHONY AND CULT IF INDIC [URIN] Stat 03/04/19 13:33 EKG Documentation Completion [RC] STAT 03/04/19 13:34 Blood Culture x2 Reflex Set [OM.PC] Stat 03/04/19 13:40 CULTURE BLOOD [BC] Stat 03/04/19 14:14 CULTURE BLOOD [BC] Stat 03/04/19 15:41 Admission Status [Patient Status] [ADT] Stat
[2019-03-04 13:23] LABS: CARBON DIOXIDE,CO2 27.8 mmol/L (21.0-32.0); POTASSIUM,K 5.3 mmol/L (3.5-5.1)
[2019-03-04 14:33] VITALS: BP 135/90; PULSE 86
[2019-03-04] MEDS ORDERED: Iopamidol 755 MG/ML 200 ML Multipack Bottle IVPUSH ONE (14:39)
--- NOTE | 2019-03-04 15:25 | CT ---
CT abdomen and pelvis Technique: Multiple axial sections were obtained from above the dome of the diaphragm inferiorly through the pubic symphysis. Intravenous contrast was utilized. No oral contrast has been given. Comparison: Prior CT abdomen and pelvis exam of 03/23/18. Findings: Visualized lung bases show nothing acute. Liver shows no focal parenchymal abnormality. Spleen appears within normal limits. Gallbladder contains no calcified gallstones. Adrenal glands show no nodule. Kidneys show symmetric contrast enhancement without hydronephrosis or mass. Pancreas appears within normal limits. Aorta shows no aneurysm. No retroperitoneal adenopathy is seen. No mesenteric abnormalities are seen. No pelvic mass or adenopathy is identified. No free fluid or inflammatory change is seen. Appendix is partially visualized and believed to be within normal limits. Bone window settings were reviewed which appear within normal limits for the patient's age. Impression: 1. Nothing acute is appreciated on CT study of the abdomen and pelvis. Diagnostic code #1 This report was dictated in [place] Standard Time
== END 2019-03-04 16:01 | disposition left against medical advice (07) ==
LOC: MW.ED 11:13
DX: E86.0 Dehydration (principal); K21.9 Gastro-esophageal reflux disease without esophagitis; Z79.899 Other long term (current) drug therapy; Z87.891 Personal history of nicotine dependence
CPT/HCPCS: 36415; 74177; 80053; 80305; 81001; 82550; 83605; 83690; 83735; 85025; 87040; 87804; 93005; 96360; 99284; A9270; J7030; Q9967

== ENCOUNTER 2019-04-24 15:02 | Observation (INO) | payer MEDICAID, OTHER ==
[2019-04-24] MEDS ORDERED: Sodium Chloride 0.9% 2.5 ML Syringe FLUSH PRN (15:56)
[2019-04-24] MEDS ORDERED: Ondansetron 4 MG/2 ML SDV IVPUSH ONE (15:56)
[2019-04-24] MEDS ORDERED: Sodium Chloride 0.9% 10 ML Syringe FLUSH PRN (15:56)
[2019-04-24] MEDS ORDERED: Sodium Chloride 0.9% 1,000 ML IV ONE ×2 (15:56→17:57)
--- NOTE | 2019-04-24 15:56 | EDM.PDOC ---
ED HPI GENERAL MEDICAL PROBLEM - General Chief Complaint: Gastrointestinal Problem Stated Complaint: VOMITING/FEVER Time Seen by Provider: 04/24/19 15:47 Source of Information: Reports: Patient History Limitations: Reports: No Limitations - History of Present Illness INITIAL COMMENTS - FREE TEXT/NARRATIVE: HISTORY AND PHYSICAL: History of present illness: Patient is a 29-year-old male presents to the ED with complaint of vomiting x 5 days. Patient is well known to the ED and has been seen for similar complaints in the past. Patient does use marijuana daily. States he was told his vomiting is due to GERD and he takes omeprazole daily. Patient states he has not been able to keep any food or liquids down in the past few days. He states he does have some abdominal pain associated with the vomiting. He has now developed a burning pain in to his chest. Review of systems: As per history of present illness and below otherwise all systems reviewed and negative. Past medical history: As per history of present illness and as reviewed below otherwise noncontributory. Surgical history: As per history of present illness and as reviewed below otherwise noncontributory. Social history: No reported history of drug or alcohol abuse. Family history: As per history of present illness and as reviewed below otherwise noncontributory. Physical exam: General: Patient sitting comfortably in no acute distress and nontoxic appearing HEENT: Atraumatic, normocephalic, pupils reactive, negative for conjunctival pallor or scleral icterus, mucous membranes dry, throat clear, neck supple, nontender, trachea midline. No meningeal signs. Lungs: Clear to auscultation, breath sounds equal bilaterally, chest nontender. Heart: S1S2, regular, negative for clicks, rubs, or overt murmur. Abdomen: Soft, nondistended, nontender. Negative for masses or hepatosplenomegaly. Negative for costovertebral tenderness. No rigidity, rebound , guarding. Pelvis: Stable nontender. Genitourinary: Deferred. Rectal: Deferred. Extremities: Atraumatic, negative for cords or calf pain. Neurovascular unremarkable. Neuro: Awake, alert, oriented. Cranial nerves II through XII unremarkable. Cerebellum unremarkable. Motor and sensory unremarkable throughout. Exam nonfocal. Notes: Diagnostics: CBC, CMP, UA, UDS Therapeutics: 2L NS IV 4mg Zofran IV Prescriptions: Impression: Vomiting, dehydration Plan: Discussed with hospitalist, patient will be admitted to observation for IV fluids for dehydration. Definitive disposition and diagnosis as appropriate pending reevaluation and review of above. Middle Abdomen Pain Score (Numeric/FACES): 8 - Related Data Allergies Allergy/AdvReac Type Severity Reaction Status Date / Time No Known Allergies Allergy Verified 04/24/19 15:38 Home Meds: Home Meds Omeprazole Magnesium [Prilosec Otc] 40 mg PO BID 03/19/18 [History] Past Medical History - Past Health History Medical/Surgical History: Denies Medical/Surgical History HEENT History: Reports: None Cardiovascular History: Reports: None Respiratory History: Reports: None Gastrointestinal History: Reports: GERD, Helicobacter Pylori Genitourinary History: Reports: None Musculoskeletal History: Reports: None Neurological History: Reports: None Psychiatric History: Reports: None Endocrine/Metabolic History: Reports: None Hematologic History: Reports: None Immunologic History: Reports: None Oncologic (Cancer) History: Reports: None Dermatologic History: Reports: None - Infectious Disease History Infectious Disease History: Reports: Chicken Pox - Past Surgical History Head Surgeries/Procedures: Reports: None HEENT Surgical History: Reports: Myringotomy w Tube(s) Cardiovascular Surgical History: Reports: None Respiratory Surgical History: Reports: None GI Surgical History: Reports: None Male Surgical History: Reports: None Endocrine Surgical History: Reports: None Neurological Surgical History: Reports: None Musculoskeletal Surgical History: Reports: Other (See Below) Other Musculoskeletal Surgeries/Procedures:: finger sx Dermatological Surgical History: Reports: None Social & Family History - Family History Family Medical History: Noncontributory Cardiac: Reports: Hypertension - Tobacco Use Smoking Status *Q: Current Every Day Smoker Years of Tobacco use: 10 Packs/Tins Daily: 1 - Caffeine Use Caffeine Use: Reports: Coffee, Energy Drinks Caffeine Use Comment: 60 oz of soda/day - Recreational Drug Use Drug Use in Last 12 Months: Yes Recreational Drug Type: Reports: Marijuana/Hashish Recreational Drug Use Frequency: Daily ED ROS GENERAL - Review of Systems Review Of Systems: Comprehensive ROS is negative, except as noted in HPI. ED EXAM, GI/ABD - Physical Exam Exam: See Below (see dictation) Course - Vital Signs Last Recorded V/S: Last Vital Signs Temp 98.2 F 04/24/19 15:35 Pulse 105 H 04/24/19 15:35 Resp 18 04/24/19 15:35 BP 126/97 H 04/24/19 15:35 Pulse Ox 95 04/24/19 15:35 - Orders/Labs/Meds Orders: Active Orders 24 hr Category Date Time Status Sodium Chloride 0.9% [Normal Saline] 1,000 ml Med 04/24/19 17:57 Active IV .Bolus Sodium Chloride 0.9% [Saline Flush] Med 04/24/19 15:56 Active 10 ml FLUSH ASDIRECTED PRN Sodium Chloride 0.9% [Saline Flush] Med 04/24/19 15:56 Active 2.5 ml FLUSH ASDIRECTED PRN Saline Lock Insert [OM.PC] Stat Oth 04/24/19 15:56 Ordered Medication Orders Sodium Chloride (Normal Saline) 1,000 mls @ 999 mls/hr IV .Bolus ONE Stop: 04/24/19 18:57 Sodium Chloride (Saline Flush) 10 ml FLUSH ASDIRECTED PRN PRN Reason: Keep Vein Open Last Admin: 04/24/19 16:17 Dose: 10 ml Sodium Chloride (Saline Flush) 2.5 ml FLUSH ASDIRECTED PRN PRN Reason: Keep Vein Open Last Admin: 04/24/19 16:17 Dose: 2.5 ml Labs: Laboratory Tests 04/24/19 04/24/19 04/24/19 Range/Units 16:30 16:30 18:12 WBC 13.32 H (4.0-11.0) K/uL RBC 6.17 H (4.50-5.90) M/uL Hgb 18.8 H (13.0-17.0) g/dL Hct 50.3 H (38.0-50.0) % MCV 81.5 (80.0-98.0) fL MCH 30.5 (27.0-32.0) pg MCHC 37.4 H (31.0-37.0) g/dL RDW Std Deviation 35.6 (28.0-62.0) fl RDW Coeff of Teresa 12 (11.0-15.0) % Plt Count 265 (150-400) K/uL MPV 11.00 (7.40-12.00) fL Neut % (Auto) 65.1 (48.0-80.0) % Lymph % (Auto) 17.2 (16.0-40.0) % [place] % (Auto) 16.6 H (0.0-15.0) % Eos % (Auto) 0.9 (0.0-7.0) % Baso % (Auto) 0.2 (0.0-1.5) % Neut # (Auto) 8.7 H (1.4-5.7) K/uL Lymph # (Auto) 2.3 (0.6-2.4) K/uL [place] # (Auto) 2.2 H (0.0-0.8) K/uL Eos # (Auto) 0.1 (0.0-0.7) K/uL Baso # (Auto) 0.0 (0.0-0.1) K/uL Sodium 123 L (136-148) mmol/L Potassium 5.6 H (3.5-5.1) mmol/L Chloride 85 L (98-107) mmol/L Carbon Dioxide 29.6 (21.0-32.0) mmol/L BUN 48 H (7.0-18.0) mg/dL Creatinine 0.8 (0.8-1.3) mg/dL Est Cr Clr Drug Dosing 102.33 mL/min Estimated GFR (MDRD) > 60.0 ml/min Glucose 86 (74-106) mg/dL Calcium 9.4 (8.5-10.1) mg/dL Total Bilirubin 1.5 H (0.2-1.0) mg/dL AST 29 (15-37) IU/L ALT 19 (14-63) IU/L Alkaline Phosphatase 87 (46-116) U/L Total Protein 8.2 (6.4-8.2) g/dL Albumin 4.9 (3.4-5.0) g/dL Globulin 3.3 (2.6-4.0) g/dL Albumin/Globulin Ratio 1.5 (0.9-1.6) Lipase 83 (73-393) U/L Urine Color YELLOW Urine Appearance CLEAR Urine pH 6.0 (5.0-8.0) Ur Specific [place] 1.025 (1.001-1.035) Urine Protein NEGATIVE (NEGATIVE) mg/dL Urine Glucose (UA) NEGATIVE (NEGATIVE) mg/dL Urine Ketones 15 H (NEGATIVE) mg/dL Urine Occult Blood NEGATIVE (NEGATIVE) Urine Nitrite NEGATIVE (NEGATIVE) Urine Bilirubin NEGATIVE (NEGATIVE) Urine Urobilinogen 0.2 (<2.0) EU/dL Ur Leukocyte Esterase NEGATIVE (NEGATIVE) Urine Opiates Screen (NEGATIVE) Ur Oxycodone Screen (NEGATIVE) Urine Methadone Screen (NEGATIVE) Ur Barbiturates Screen (NEGATIVE) Ur Phencyclidine Scrn (NEGATIVE) Ur Amphetamine Screen (NEGATIVE) U Methamphetamines Scrn (NEGATIVE) U Benzodiazepines Scrn (NEGATIVE) U Cocaine Metab Screen (NEGATIVE) U Marijuana (THC) Screen (NEGATIVE) 04/24/19 Range/Units 18:12 WBC (4.0-11.0) K/uL RBC (4.50-5.90) M/uL Hgb (13.0-17.0) g/dL Hct (38.0-50.0) % MCV (80.0-98.0) fL MCH (27.0-32.0) pg MCHC (31.0-37.0) g/dL RDW Std Deviation (28.0-62.0) fl RDW Coeff of Teresa (11.0-15.0) % Plt Count (150-400) K/uL MPV (7.40-12.00) fL Neut % (Auto) (48.0-80.0) % Lymph % (Auto) (16.0-40.0) % [place] % (Auto) (0.0-15.0) % Eos % (Auto) (0.0-7.0) % Baso % (Auto) (0.0-1.5) % Neut # (Auto) (1.4-5.7) K/uL Lymph # (Auto) (0.6-2.4) K/uL [place] # (Auto) (0.0-0.8) K/uL Eos # (Auto) (0.0-0.7) K/uL Baso # (Auto) (0.0-0.1) K/uL Sodium (136-148) mmol/L Potassium (3.5-5.1) mmol/L Chloride (98-107) mmol/L Carbon Dioxide (21.0-32.0) mmol/L BUN (7.0-18.0) mg/dL Creatinine (0.8-1.3) mg/dL Est Cr Clr Drug Dosing mL/min Estimated GFR (MDRD) ml/min Glucose (74-106) mg/dL Calcium (8.5-10.1) mg/dL Total Bilirubin (0.2-1.0) mg/dL AST (15-37) IU/L ALT (14-63) IU/L Alkaline Phosphatase (46-116) U/L Total Protein (6.4-8.2) g/dL Albumin (3.4-5.0) g/dL Globulin (2.6-4.0) g/dL Albumin/Globulin Ratio (0.9-1.6) Lipase (73-393) U/L Urine Color Urine Appearance Urine pH (5.0-8.0) Ur Specific [place] (1.001-1.035) Urine Protein (NEGATIVE) mg/dL Urine Glucose (UA) (NEGATIVE) mg/dL Urine Ketones (NEGATIVE) mg/dL Urine Occult Blood (NEGATIVE) Urine Nitrite (NEGATIVE) Urine Bilirubin (NEGATIVE) Urine Urobilinogen (<2.0) EU/dL Ur Leukocyte Esterase (NEGATIVE) Urine Opiates Screen NEGATIVE (NEGATIVE) Ur Oxycodone Screen NEGATIVE (NEGATIVE) Urine Methadone Screen NEGATIVE (NEGATIVE) Ur Barbiturates Screen NEGATIVE (NEGATIVE) Ur Phencyclidine Scrn NEGATIVE (NEGATIVE) Ur Amphetamine Screen NEGATIVE (NEGATIVE) U Methamphetamines Scrn NEGATIVE (NEGATIVE) U Benzodiazepines Scrn NEGATIVE (NEGATIVE) U Cocaine Metab Screen NEGATIVE (NEGATIVE) U Marijuana (THC) Screen POSITIVE (NEGATIVE) Meds: Medications Generic Name Dose Route Start Last Admin Trade Name Freq PRN Reason Stop Dose Admin Sodium Chloride 1,000 mls @ 999 mls/hr 04/24/19 17:57 Normal Saline IV 04/24/19 18:57 .Bolus ONE Sodium Chloride 10 ml 04/24/19 15:56 04/24/19 16:17 Saline Flush FLUSH 10 ml ASDIRECTED PRN Administration Keep Vein Open Sodium Chloride 2.5 ml 04/24/19 15:56 04/24/19 16:17 Saline Flush FLUSH 2.5 ml ASDIRECTED PRN Administration Keep Vein Open Discontinued Medications Generic Name Dose Route Start Last Admin Trade Name Freq PRN Reason Stop Dose Admin Sodium Chloride 1,000 mls @ 999 mls/hr 04/24/19 15:56 04/24/19 16:17 Normal Saline IV 04/24/19 16:56 999 mls/hr STAT ONE Administration Ondansetron HCl 4 mg 04/24/19 15:56 04/24/19 16:17 Zofran IVPUSH 04/24/19 15:57 4 mg ONETIME ONE Administration Departure - Departure Time of Disposition: 18:33 Disposition: Refer to Observation Condition: Good Clinical Impression: Dehydration Vomiting Qualifiers: Vomiting type: unspecified Vomiting Intractability: unspecified Nausea presence : with nausea Qualified Code(s): R11.2 - Nausea with vomiting, unspecified - Discharge Information Referrals: Uriel Rebolledo MD [Primary Care Provider] - Forms: ED Department Discharge Sepsis Event Note - Evaluation Sepsis Screening Result: No Definite Risk - Focused Exam Vital Signs: Vital Signs Temp Pulse Resp BP Pulse Ox 04/24/19 15:35 98.2 F 105 H 18 126/97 H 95 Date Exam was Performed: 04/24/19 Time Exam was Performed: 18:31 - My Orders Last 24 Hours: My Active Orders 04/24/19 15:56 Sodium Chloride 0.9% [Saline Flush] 10 ml FLUSH ASDIRECTED PRN Sodium Chloride 0.9% [Saline Flush] 2.5 ml FLUSH ASDIRECTED PRN Saline Lock Insert [OM.PC] Stat 04/24/19 17:57 Sodium Chloride 0.9% [Normal Saline] 1,000 ml IV .Bolus - Assessment/Plan Last 24 Hours: My Active Orders 04/24/19 15:56 Sodium Chloride 0.9% [Saline Flush] 10 ml FLUSH ASDIRECTED PRN Sodium Chloride 0.9% [Saline Flush] 2.5 ml FLUSH ASDIRECTED PRN Saline Lock Insert [OM.PC] Stat 04/24/19 17:57 Sodium Chloride 0.9% [Normal Saline] 1,000 ml IV .Bolus
[2019-04-24 17:14] LABS: BLOOD UREA NITROGEN,BUN 48 mg/dL (7.0-18.0); CARBON DIOXIDE,CO2 29.6 mmol/L (21.0-32.0); CHLORIDE,CL 85 mmol/L (98-107); GLUCOSE RANDOM 86 mg/dL (74-106); LIPASE 83 U/L (73-393); POTASSIUM,K 5.6 mmol/L (3.5-5.1); SODIUM,NA 123 mmol/L (136-148)
--- NOTE | 2019-04-24 17:30 | CR ---
Chest: 2 views chest were obtained. Comparison: Previous chest x-ray of 01/24/19. Heart size and mediastinum are normal. Lungs are clear. Bony structures show slight scoliosis within the spine. Impression: 1. Nothing acute is appreciated on 2 view chest x-ray. Diagnostic code #2 Study was dictated in [place] Standard Time
[2019-04-24] MEDS ORDERED: Enoxaparin 40 MG/0.4 ML Syringe SUBCUT SCH (19:30)
[2019-04-24] MEDS ORDERED: Ondansetron 4 MG/2 ML SDV IVPUSH PRN (19:33)
[2019-04-24] MEDS ORDERED: Ondansetron 4 MG Tab.DIS PO ONE (19:33)
[2019-04-24] MEDS ORDERED: Calcium Gluconate 10% 1 GM/10 ML SDV IVPUSH ONE (19:34)
--- NOTE | 2019-04-24 20:13 | PCM.HP.2 ---
<Benson Mendoza - Last Filed: 04/24/19 20:15> H&P History of Present Illness - General Date of Service: 04/24/19 Admit Problem/Dx: Admission Diagnosis/Problem Admission Diagnosis/Problem Dehydration - History of Present Illness Initial Comments - Free Text/Narative: 29 y/o male presenting to the ER complaining of nausea, vomiting for the past 1 week. Patient states that he has been vomiting for the past 1 week. No diarrhea. No hematemesis. Drinks occasionally. UDS positive for marijuana. Denies IV drug use. No fevers. No other sick contacts at home. States that he has had similar episode before but not this severe. Not able to eat or drink since he will throw up. In the ER, Na 123, K 5.6. Received 2 L NS boluses in the ER. On my examination he was in no acute distress. No abdominal pain. No neurological deficits. Able to converse. No chest pain, dyspnea, diarrhea. Middle Abdomen Pain Score (Numeric/FACES): 8 - Related Data Allergies/Adverse Reactions: Allergies Allergy/AdvReac Type Severity Reaction Status Date / Time No Known Allergies Allergy Verified 04/25/19 04:26 Home Medications: Home Meds Omeprazole Magnesium [Prilosec Otc] 40 mg PO BID 03/19/18 [History] Past Medical History - Past Health History Medical/Surgical History: Denies Medical/Surgical History HEENT History: Reports: None Cardiovascular History: Reports: None Respiratory History: Reports: None Gastrointestinal History: Reports: GERD, Helicobacter Pylori Genitourinary History: Reports: None Musculoskeletal History: Reports: None Neurological History: Reports: None Psychiatric History: Reports: None Endocrine/Metabolic History: Reports: None Hematologic History: Reports: None Immunologic History: Reports: None Oncologic (Cancer) History: Reports: None Dermatologic History: Reports: None - Infectious Disease History Infectious Disease History: Reports: Chicken Pox - Past Surgical History Head Surgeries/Procedures: Reports: None HEENT Surgical History: Reports: Myringotomy w Tube(s) Cardiovascular Surgical History: Reports: None Respiratory Surgical History: Reports: None GI Surgical History: Reports: None Male Surgical History: Reports: None Endocrine Surgical History: Reports: None Neurological Surgical History: Reports: None Musculoskeletal Surgical History: Reports: Other (See Below) Other Musculoskeletal Surgeries/Procedures:: finger sx Dermatological Surgical History: Reports: None Social & Family History - Family History Family Medical History: Noncontributory Cardiac: Reports: Hypertension - Tobacco Use Smoking Status *Q: Current Every Day Smoker Years of Tobacco use: 10 Packs/Tins Daily: 1 - Caffeine Use Caffeine Use: Reports: Coffee, Energy Drinks Caffeine Use Comment: 60 oz of soda/day - Recreational Drug Use Drug Use in Last 12 Months: Yes Recreational Drug Type: Reports: Marijuana/Hashish Recreational Drug Use Frequency: Daily H&P Review of Systems - Review of Systems: Review Of Systems: Comprehensive ROS is negative, except as noted in HPI. Exam - Exam Exam: See Below - Vital Signs Vital Signs: Last Vital Signs Temp 36.8 C 04/24/19 15:35 Pulse 77 04/24/19 18:35 Resp 18 04/24/19 16:35 BP 136/68 04/24/19 18:35 Pulse Ox 96 04/24/19 18:35 Weight: 52.163 kg - Exam General: Alert, Oriented, Cooperative HEENT: Other (dry oral mucosa) Lungs: Clear to Auscultation, Normal Respiratory Effort. No: Crackles, Wheezing Cardiovascular: Regular Rhythm, Tachycardia GI/Abdominal Exam: Normal Bowel Sounds, Soft, Non-Tender, No Distention Extremities: Normal Inspection, No Pedal Edema Skin: Warm Neuro Extensive - Mental Status: Alert, Oriented x3 - Patient Data Lab Results Last 24 hrs: Laboratory Results - last 24 hr 04/24/19 04/24/19 04/24/19 Range/Units 16:30 16:30 18:12 WBC 13.32 H (4.0-11.0) K/uL RBC 6.17 H (4.50-5.90) M/uL Hgb 18.8 H (13.0-17.0) g/dL Hct 50.3 H (38.0-50.0) % MCV 81.5 (80.0-98.0) fL MCH 30.5 (27.0-32.0) pg MCHC 37.4 H (31.0-37.0) g/dL RDW Std Deviation 35.6 (28.0-62.0) fl RDW Coeff of Teresa 12 (11.0-15.0) % Plt Count 265 (150-400) K/uL MPV 11.00 (7.40-12.00) fL Neut % (Auto) 65.1 (48.0-80.0) % Lymph % (Auto) 17.2 (16.0-40.0) % [place] % (Auto) 16.6 H (0.0-15.0) % Eos % (Auto) 0.9 (0.0-7.0) % Baso % (Auto) 0.2 (0.0-1.5) % Neut # (Auto) 8.7 H (1.4-5.7) K/uL Lymph # (Auto) 2.3 (0.6-2.4) K/uL [place] # (Auto) 2.2 H (0.0-0.8) K/uL Eos # (Auto) 0.1 (0.0-0.7) K/uL Baso # (Auto) 0.0 (0.0-0.1) K/uL Sodium 123 L (136-148) mmol/L Potassium 5.6 H (3.5-5.1) mmol/L Chloride 85 L (98-107) mmol/L Carbon Dioxide 29.6 (21.0-32.0) mmol/L BUN 48 H (7.0-18.0) mg/dL Creatinine 0.8 (0.8-1.3) mg/dL Est Cr Clr Drug Dosing 102.33 mL/min Estimated GFR (MDRD) > 60.0 ml/min Glucose 86 (74-106) mg/dL Calcium 9.4 (8.5-10.1) mg/dL Total Bilirubin 1.5 H (0.2-1.0) mg/dL AST 29 (15-37) IU/L ALT 19 (14-63) IU/L Alkaline Phosphatase 87 (46-116) U/L Total Protein 8.2 (6.4-8.2) g/dL Albumin 4.9 (3.4-5.0) g/dL Globulin 3.3 (2.6-4.0) g/dL Albumin/Globulin Ratio 1.5 (0.9-1.6) Lipase 83 (73-393) U/L Urine Color YELLOW Urine Appearance CLEAR Urine pH 6.0 (5.0-8.0) Ur Specific [place] 1.025 (1.001-1.035) Urine Protein NEGATIVE (NEGATIVE) mg/dL Urine Glucose (UA) NEGATIVE (NEGATIVE) mg/dL Urine Ketones 15 H (NEGATIVE) mg/dL Urine Occult Blood NEGATIVE (NEGATIVE) Urine Nitrite NEGATIVE (NEGATIVE) Urine Bilirubin NEGATIVE (NEGATIVE) Urine Urobilinogen 0.2 (<2.0) EU/dL Ur Leukocyte Esterase NEGATIVE (NEGATIVE) Urine Opiates Screen (NEGATIVE) Ur Oxycodone Screen (NEGATIVE) Urine Methadone Screen (NEGATIVE) Ur Barbiturates Screen (NEGATIVE) Ur Phencyclidine Scrn (NEGATIVE) Ur Amphetamine Screen (NEGATIVE) U Methamphetamines Scrn (NEGATIVE) U Benzodiazepines Scrn (NEGATIVE) U Cocaine Metab Screen (NEGATIVE) U Marijuana (THC) Screen (NEGATIVE) 04/24/19 Range/Units 18:12 WBC (4.0-11.0) K/uL RBC (4.50-5.90) M/uL Hgb (13.0-17.0) g/dL Hct (38.0-50.0) % MCV (80.0-98.0) fL MCH (27.0-32.0) pg MCHC (31.0-37.0) g/dL RDW Std Deviation (28.0-62.0) fl RDW Coeff of Teresa (11.0-15.0) % Plt Count (150-400) K/uL MPV (7.40-12.00) fL Neut % (Auto) (48.0-80.0) % Lymph % (Auto) (16.0-40.0) % [place] % (Auto) (0.0-15.0) % Eos % (Auto) (0.0-7.0) % Baso % (Auto) (0.0-1.5) % Neut # (Auto) (1.4-5.7) K/uL Lymph # (Auto) (0.6-2.4) K/uL [place] # (Auto) (0.0-0.8) K/uL Eos # (Auto) (0.0-0.7) K/uL Baso # (Auto) (0.0-0.1) K/uL Sodium (136-148) mmol/L Potassium (3.5-5.1) mmol/L Chloride (98-107) mmol/L Carbon Dioxide (21.0-32.0) mmol/L BUN (7.0-18.0) mg/dL Creatinine (0.8-1.3) mg/dL Est Cr Clr Drug Dosing mL/min Estimated GFR (MDRD) ml/min Glucose (74-106) mg/dL Calcium (8.5-10.1) mg/dL Total Bilirubin (0.2-1.0) mg/dL AST (15-37) IU/L ALT (14-63) IU/L Alkaline Phosphatase (46-116) U/L Total Protein (6.4-8.2) g/dL Albumin (3.4-5.0) g/dL Globulin (2.6-4.0) g/dL Albumin/Globulin Ratio (0.9-1.6) Lipase (73-393) U/L Urine Color Urine Appearance Urine pH (5.0-8.0) Ur Specific [place] (1.001-1.035) Urine Protein (NEGATIVE) mg/dL Urine Glucose (UA) (NEGATIVE) mg/dL Urine Ketones (NEGATIVE) mg/dL Urine Occult Blood (NEGATIVE) Urine Nitrite (NEGATIVE) Urine Bilirubin (NEGATIVE) Urine Urobilinogen (<2.0) EU/dL Ur Leukocyte Esterase (NEGATIVE) Urine Opiates Screen NEGATIVE (NEGATIVE) Ur Oxycodone Screen NEGATIVE (NEGATIVE) Urine Methadone Screen NEGATIVE (NEGATIVE) Ur Barbiturates Screen NEGATIVE (NEGATIVE) Ur Phencyclidine Scrn NEGATIVE (NEGATIVE) Ur Amphetamine Screen NEGATIVE (NEGATIVE) U Methamphetamines Scrn NEGATIVE (NEGATIVE) U Benzodiazepines Scrn NEGATIVE (NEGATIVE) U Cocaine Metab Screen NEGATIVE (NEGATIVE) U Marijuana (THC) Screen POSITIVE (NEGATIVE) Result Diagrams: 04/24/19 16:30 04/24/19 16:30 Sepsis Event Note - Evaluation Sepsis Screening Result: No Definite Risk - Focused Exam Vital Signs: Vital Signs Temp Pulse Resp BP Pulse Ox 04/24/19 18:35 77 136/68 96 04/24/19 16:35 81 18 140/83 97 04/24/19 15:35 36.8 C 105 H 18 126/97 H 95 Date Exam was Performed: 04/24/19 Time Exam was Performed: 20:15 Problem List Initiated/Reviewed/Updated: Yes Orders Last 24hrs: Active Orders 24 hr Category Date Time Status Admission Status [Patient Status] [ADT] Stat ADT 04/24/19 18:35 Active Intake and Output [RC] QSHIFT Care 04/24/19 19:31 Active Oxygen Therapy [RC] PRN Care 04/24/19 19:30 Active Up ad Adriana [RC] ASDIRECTED Care 04/24/19 19:30 Active VTE/DVT Education [RC] PER UNIT ROUTINE Care 04/24/19 19:30 Active Vital Signs [RC] Q4H Care 04/24/19 19:30 Active Clear Liquid Diet [DIET] Diet 04/24/19 Dinner Active CBC WITH AUTO DIFF [HEME] AM Lab 04/25/19 05:11 Ordered CBC WITH AUTO DIFF [HEME] AM Lab 04/26/19 05:11 Ordered COMPREHENSIVE METABOLIC PN,CMP [CHEM] AM Lab 04/25/19 05:11 Ordered COMPREHENSIVE METABOLIC PN,CMP [CHEM] AM Lab 04/26/19 05:11 Ordered SODIUM,URINE RANDOM [URCHEM] Routine Lab 04/24/19 18:12 Received TSH [CHEM] Routine Lab 04/24/19 16:30 Received Enoxaparin [Lovenox] Med 04/24/19 19:30 Active 40 mg SUBCUT Q24H Ondansetron [Zofran] Med 04/24/19 19:33 Active 4 mg IVPUSH Q4H PRN Pantoprazole [ProTONIX IV] 40 mg Med 04/24/19 19:45 Active Sodium Chloride 0.9% [Normal Saline] 10 ml IV DAILY Sodium Chloride 0.9% [Normal Saline] 1,000 ml Med 04/24/19 19:30 Active IV CONTINUOUS Sodium Chloride 0.9% [Saline Flush] Med 04/24/19 15:56 Active 10 ml FLUSH ASDIRECTED PRN Sodium Chloride 0.9% [Saline Flush] Med 04/24/19 15:56 Active 2.5 ml FLUSH ASDIRECTED PRN Saline Lock Insert [OM.PC] Stat Oth 04/24/19 15:56 Ordered Resuscitation Status Routine Resus Stat 04/24/19 19:30 Ordered Medication Orders Enoxaparin Sodium (Lovenox) 40 mg SUBCUT Q24H FIORELLA Sodium Chloride (Normal Saline) 1,000 mls @ 100 mls/hr IV CONTINUOUS FIORELLA Stop: 04/25/19 05:29 Pantoprazole Sodium 40 mg/ (Sodium Chloride) 10 mls @ 300 mls/hr IV DAILY FIORELLA Ondansetron HCl (Zofran) 4 mg IVPUSH Q4H PRN PRN Reason: Nausea Sodium Chloride (Saline Flush) 10 ml FLUSH ASDIRECTED PRN PRN Reason: Keep Vein Open Last Admin: 04/24/19 16:17 Dose: 10 ml Sodium Chloride (Saline Flush) 2.5 ml FLUSH ASDIRECTED PRN PRN Reason: Keep Vein Open Last Admin: 04/24/19 16:17 Dose: 2.5 ml Assessment/Plan Comment:: A: 1. Nausea, vomiting 2. Dehydration due to above 3. Asymptomatic hyponatremia 4. Hyperkalemia 5. Marijuana abuse P: Will continue maintenance fluids at 100 ml/hr NS. Zofran PRN. Recheck Na in the morning. Will give Calcium gluconate due to hyperkalemia. Recheck tomorrow. Likely discharge tomorrow. Dispo: likely dc tomorrow <Dennis Werner - Last Filed: 05/02/19 12:30> H&P History of Present Illness - General Admit Problem/Dx: Admission Diagnosis/Problem Admission Diagnosis/Problem Dehydration Exam - Vital Signs Vital Signs: Last Vital Signs Temp 36.7 C 04/25/19 12:08 Pulse 56 L 04/25/19 12:08 Resp 20 04/25/19 12:08 BP 112/58 L 04/25/19 12:08 Pulse Ox 99 04/25/19 12:08 - Patient Data Result Diagrams: 04/25/19 05:10 04/25/19 05:10 Assessment/Plan Comment:: I performed a history and physical exam of the patient and discussed management with resident. I have reviewed the residents note and agree with documented findings and plan unless otherwise specified in my note.
[2019-04-24] MEDS: Pantoprazole 40 MG in Sodium Chloride 0.9% 10 ML IV SCH (20:46)
[2019-04-24] MEDS: Sodium Chloride 0.9% 1,000 ML IV SCH (20:49)
[2019-04-24 23:07] LABS: HEMOGLOBIN A1C 5.2 % (4.5-6.2)
[2019-04-25] MEDS: Sodium Chloride 0.9% 1,000 ML IV SCH (05:16)
[2019-04-25 06:04] LABS: BLOOD UREA NITROGEN,BUN 31 mg/dL (7.0-18.0); CARBON DIOXIDE,CO2 25.6 mmol/L (21.0-32.0); CHLORIDE,CL 89 mmol/L (98-107); GLUCOSE RANDOM 73 mg/dL (74-106); POTASSIUM,K 3.6 mmol/L (3.5-5.1); SODIUM,NA 123 mmol/L (136-148)
[2019-04-25] MEDS ORDERED: Sodium Chloride 0.9% 1,000 ML IV STA (07:43)
[2019-04-25] MEDS: Pantoprazole 40 MG in Sodium Chloride 0.9% 10 ML IV SCH (08:35)
--- NOTE | 2019-04-25 09:17 | PCM.DCSUM1 ---
<Benson Mendoza - Last Filed: 04/26/19 12:18> Discharge Summary - Hospital Course Free Text/Narrative:: 29 y/o male presented to the ER complaining of nausea, vomiting for 1 week. He was admitted for dehydration. In addition, he was found to be hyponatremia Na 123. Seems to be chronic. He was asymptomatic. He was hydrated with normal saline during this hospitalization. His symptoms resolved and he was tolerating PO intake. He was advised to abstain from any alcohol or mood altering substances. He will need to follow-up with his PCP in 2 weeks. - Discharge Data Discharge Date: 04/25/19 Discharge Disposition: Home, Self-Care 01 Condition: Good - Referral to Home Health Primary Care Physician: Uriel Rebolledo MD - Patient Instructions Diet: Regular Diet as Tolerated Activity: As Tolerated - Discharge Plan Home Medications: Home Meds Omeprazole Magnesium [Prilosec Otc] 40 mg PO BID 03/19/18 [History] Patient Handouts: Dehydration, Adult, [id number] Referrals: Uriel Rebolledo MD [Primary Care Provider] - 05/02/19 7:45 am - Discharge Summary/Plan Comment DC Time >30 min.: No - Patient Data Vitals - Most Recent: Last Vital Signs Temp 36.7 C 04/25/19 03:00 Pulse 61 04/25/19 03:00 Resp 16 04/25/19 03:00 BP 115/60 04/25/19 03:00 Pulse Ox 97 04/25/19 03:00 Weight - Most Recent: 52.163 kg I&O - Last 24 hours: Intake & Output 04/24/19 04/25/19 04/25/19 22:59 06:59 14:59 Intake Total 1890 Output Total 400 Balance 1490 Lab Results - Last 24 hrs: Laboratory Results - last 24 hr 04/24/19 04/24/19 04/24/19 Range/Units 16:30 16:30 16:30 WBC 13.32 H (4.0-11.0) K/uL RBC 6.17 H (4.50-5.90) M/uL Hgb 18.8 H (13.0-17.0) g/dL Hct 50.3 H (38.0-50.0) % MCV 81.5 (80.0-98.0) fL MCH 30.5 (27.0-32.0) pg MCHC 37.4 H (31.0-37.0) g/dL RDW Std Deviation 35.6 (28.0-62.0) fl RDW Coeff of Teresa 12 (11.0-15.0) % Plt Count 265 (150-400) K/uL MPV 11.00 (7.40-12.00) fL Neut % (Auto) 65.1 (48.0-80.0) % Lymph % (Auto) 17.2 (16.0-40.0) % [place] % (Auto) 16.6 H (0.0-15.0) % Eos % (Auto) 0.9 (0.0-7.0) % Baso % (Auto) 0.2 (0.0-1.5) % Neut # (Auto) 8.7 H (1.4-5.7) K/uL Lymph # (Auto) 2.3 (0.6-2.4) K/uL [place] # (Auto) 2.2 H (0.0-0.8) K/uL Eos # (Auto) 0.1 (0.0-0.7) K/uL Baso # (Auto) 0.0 (0.0-0.1) K/uL Nucleated RBC % /100WBC Nucleated RBCs # K/uL Sodium 123 L (136-148) mmol/L Potassium 5.6 H (3.5-5.1) mmol/L Chloride 85 L (98-107) mmol/L Carbon Dioxide 29.6 (21.0-32.0) mmol/L BUN 48 H (7.0-18.0) mg/dL Creatinine 0.8 (0.8-1.3) mg/dL Est Cr Clr Drug Dosing 102.33 mL/min Estimated GFR (MDRD) > 60.0 ml/min Glucose 86 (74-106) mg/dL Hemoglobin A1c (4.5-6.2) % Calcium 9.4 (8.5-10.1) mg/dL Total Bilirubin 1.5 H (0.2-1.0) mg/dL AST 29 (15-37) IU/L ALT 19 (14-63) IU/L Alkaline Phosphatase 87 (46-116) U/L Total Protein 8.2 (6.4-8.2) g/dL Albumin 4.9 (3.4-5.0) g/dL Globulin 3.3 (2.6-4.0) g/dL Albumin/Globulin Ratio 1.5 (0.9-1.6) Lipase 83 (73-393) U/L TSH 3rd Generation 0.39 (0.36-3.74) uIU/mL Urine Color Urine Appearance Urine pH (5.0-8.0) Ur Specific [place] (1.001-1.035) Urine Protein (NEGATIVE) mg/dL Urine Glucose (UA) (NEGATIVE) mg/dL Urine Ketones (NEGATIVE) mg/dL Urine Occult Blood (NEGATIVE) Urine Nitrite (NEGATIVE) Urine Bilirubin (NEGATIVE) Urine Urobilinogen (<2.0) EU/dL Ur Leukocyte Esterase (NEGATIVE) Ur Random Sodium (40.0-220.0) mmol/L Urine Opiates Screen (NEGATIVE) Ur Oxycodone Screen (NEGATIVE) Urine Methadone Screen (NEGATIVE) Ur Barbiturates Screen (NEGATIVE) Ur Phencyclidine Scrn (NEGATIVE) Ur Amphetamine Screen (NEGATIVE) U Methamphetamines Scrn (NEGATIVE) U Benzodiazepines Scrn (NEGATIVE) U Cocaine Metab Screen (NEGATIVE) U Marijuana (THC) Screen (NEGATIVE) 04/24/19 04/24/19 04/24/19 Range/Units 16:30 18:12 18:12 WBC (4.0-11.0) K/uL RBC (4.50-5.90) M/uL Hgb (13.0-17.0) g/dL Hct (38.0-50.0) % MCV (80.0-98.0) fL MCH (27.0-32.0) pg MCHC (31.0-37.0) g/dL RDW Std Deviation (28.0-62.0) fl RDW Coeff of Teresa (11.0-15.0) % Plt Count (150-400) K/uL MPV (7.40-12.00) fL Neut % (Auto) (48.0-80.0) % Lymph % (Auto) (16.0-40.0) % [place] % (Auto) (0.0-15.0) % Eos % (Auto) (0.0-7.0) % Baso % (Auto) (0.0-1.5) % Neut # (Auto) (1.4-5.7) K/uL Lymph # (Auto) (0.6-2.4) K/uL [place] # (Auto) (0.0-0.8) K/uL Eos # (Auto) (0.0-0.7) K/uL Baso # (Auto) (0.0-0.1) K/uL Nucleated RBC % /100WBC Nucleated RBCs # K/uL Sodium (136-148) mmol/L Potassium (3.5-5.1) mmol/L Chloride (98-107) mmol/L Carbon Dioxide (21.0-32.0) mmol/L BUN (7.0-18.0) mg/dL Creatinine (0.8-1.3) mg/dL Est Cr Clr Drug Dosing mL/min Estimated GFR (MDRD) ml/min Glucose (74-106) mg/dL Hemoglobin A1c 5.2 (4.5-6.2) % Calcium (8.5-10.1) mg/dL Total Bilirubin (0.2-1.0) mg/dL AST (15-37) IU/L ALT (14-63) IU/L Alkaline Phosphatase (46-116) U/L Total Protein (6.4-8.2) g/dL Albumin (3.4-5.0) g/dL Globulin (2.6-4.0) g/dL Albumin/Globulin Ratio (0.9-1.6) Lipase (73-393) U/L TSH 3rd Generation (0.36-3.74) uIU/mL Urine Color YELLOW Urine Appearance CLEAR Urine pH 6.0 (5.0-8.0) Ur Specific [place] 1.025 (1.001-1.035) Urine Protein NEGATIVE (NEGATIVE) mg/dL Urine Glucose (UA) NEGATIVE (NEGATIVE) mg/dL Urine Ketones 15 H (NEGATIVE) mg/dL Urine Occult Blood NEGATIVE (NEGATIVE) Urine Nitrite NEGATIVE (NEGATIVE) Urine Bilirubin NEGATIVE (NEGATIVE) Urine Urobilinogen 0.2 (<2.0) EU/dL Ur Leukocyte Esterase NEGATIVE (NEGATIVE) Ur Random Sodium (40.0-220.0) mmol/L Urine Opiates Screen NEGATIVE (NEGATIVE) Ur Oxycodone Screen NEGATIVE (NEGATIVE) Urine Methadone Screen NEGATIVE (NEGATIVE) Ur Barbiturates Screen NEGATIVE (NEGATIVE) Ur Phencyclidine Scrn NEGATIVE (NEGATIVE) Ur Amphetamine Screen NEGATIVE (NEGATIVE) U Methamphetamines Scrn NEGATIVE (NEGATIVE) U Benzodiazepines Scrn NEGATIVE (NEGATIVE) U Cocaine Metab Screen NEGATIVE (NEGATIVE) U Marijuana (THC) Screen POSITIVE (NEGATIVE) 04/24/19 04/25/19 04/25/19 Range/Units 18:12 05:10 05:10 WBC 9.91 (4.0-11.0) K/uL RBC 4.89 (4.50-5.90) M/uL Hgb 14.7 (13.0-17.0) g/dL Hct 41.3 (38.0-50.0) % MCV 84.5 (80.0-98.0) fL MCH 30.1 (27.0-32.0) pg MCHC 35.6 (31.0-37.0) g/dL RDW Std Deviation 36.9 (28.0-62.0) fl RDW Coeff of Teresa 12 (11.0-15.0) % Plt Count 204 (150-400) K/uL MPV 10.40 (7.40-12.00) fL Neut % (Auto) 46.0 L (48.0-80.0) % Lymph % (Auto) 36.6 (16.0-40.0) % [place] % (Auto) 17.1 H (0.0-15.0) % Eos % (Auto) 0.1 (0.0-7.0) % Baso % (Auto) 0.2 (0.0-1.5) % Neut # (Auto) 4.6 (1.4-5.7) K/uL Lymph # (Auto) 3.6 H (0.6-2.4) K/uL [place] # (Auto) 1.7 H (0.0-0.8) K/uL Eos # (Auto) 0.0 (0.0-0.7) K/uL Baso # (Auto) 0.0 (0.0-0.1) K/uL Nucleated RBC % 0.0 /100WBC Nucleated RBCs # 0 K/uL Sodium 123 L (136-148) mmol/L Potassium 3.6 (3.5-5.1) mmol/L Chloride 89 L (98-107) mmol/L Carbon Dioxide 25.6 (21.0-32.0) mmol/L BUN 31 H (7.0-18.0) mg/dL Creatinine 0.9 (0.8-1.3) mg/dL Est Cr Clr Drug Dosing 90.96 mL/min Estimated GFR (MDRD) > 60.0 ml/min Glucose 73 L (74-106) mg/dL Hemoglobin A1c (4.5-6.2) % Calcium 7.8 L (8.5-10.1) mg/dL Total Bilirubin 1.1 H (0.2-1.0) mg/dL AST 14 L (15-37) IU/L ALT 13 L (14-63) IU/L Alkaline Phosphatase 63 (46-116) U/L Total Protein 6.0 L (6.4-8.2) g/dL Albumin 3.4 (3.4-5.0) g/dL Globulin 2.6 (2.6-4.0) g/dL Albumin/Globulin Ratio 1.3 (0.9-1.6) Lipase (73-393) U/L TSH 3rd Generation (0.36-3.74) uIU/mL Urine Color Urine Appearance Urine pH (5.0-8.0) Ur Specific [place] (1.001-1.035) Urine Protein (NEGATIVE) mg/dL Urine Glucose (UA) (NEGATIVE) mg/dL Urine Ketones (NEGATIVE) mg/dL Urine Occult Blood (NEGATIVE) Urine Nitrite (NEGATIVE) Urine Bilirubin (NEGATIVE) Urine Urobilinogen (<2.0) EU/dL Ur Leukocyte Esterase (NEGATIVE) Ur Random Sodium 7.0 L (40.0-220.0) mmol/L Urine Opiates Screen (NEGATIVE) Ur Oxycodone Screen (NEGATIVE) Urine Methadone Screen (NEGATIVE) Ur Barbiturates Screen (NEGATIVE) Ur Phencyclidine Scrn (NEGATIVE) Ur Amphetamine Screen (NEGATIVE) U Methamphetamines Scrn (NEGATIVE) U Benzodiazepines Scrn (NEGATIVE) U Cocaine Metab Screen (NEGATIVE) U Marijuana (THC) Screen (NEGATIVE) Med Orders - Current: Current Medications Enoxaparin Sodium (Lovenox) 40 mg SUBCUT Q24H FIORELLA Last Admin: 04/24/19 20:47 Dose: 40 mg Pantoprazole Sodium 40 mg/ (Sodium Chloride) 10 mls @ 300 mls/hr IV DAILY FIORELLA Last Admin: 04/25/19 08:35 Dose: 300 mls/hr Sodium Chloride (Normal Saline) 1,000 mls @ 200 mls/hr IV CONTINUOUS STA Stop: 04/25/19 12:42 Last Admin: 04/25/19 08:33 Dose: 200 mls/hr Ondansetron HCl (Zofran) 4 mg IVPUSH Q4H PRN PRN Reason: Nausea Last Admin: 04/25/19 05:02 Dose: 4 mg Sodium Chloride (Saline Flush) 10 ml FLUSH ASDIRECTED PRN PRN Reason: Keep Vein Open Last Admin: 04/24/19 16:17 Dose: 10 ml Sodium Chloride (Saline Flush) 2.5 ml FLUSH ASDIRECTED PRN PRN Reason: Keep Vein Open Last Admin: 04/24/19 16:17 Dose: 2.5 ml Discontinued Medications Calcium Gluconate (Calcium Gluconate) 1 gm IVPUSH ONETIME ONE Stop: 04/24/19 19:35 Last Admin: 04/24/19 20:48 Dose: 1 gm Sodium Chloride (Normal Saline) 1,000 mls @ 999 mls/hr IV STAT ONE Stop: 04/24/19 16:56 Last Admin: 04/24/19 16:17 Dose: 999 mls/hr Sodium Chloride (Normal Saline) 1,000 mls @ 999 mls/hr IV .Bolus ONE Stop: 04/24/19 18:57 Last Admin: 04/24/19 19:06 Dose: 999 mls/hr Sodium Chloride (Normal Saline) 1,000 mls @ 100 mls/hr IV CONTINUOUS FIORELLA Stop: 04/25/19 05:29 Last Admin: 04/25/19 05:16 Dose: 100 mls/hr Ondansetron HCl (Zofran) 4 mg IVPUSH ONETIME ONE Stop: 04/24/19 15:57 Last Admin: 04/24/19 16:17 Dose: 4 mg Ondansetron HCl (Zofran Odt) 4 mg PO ONETIME ONE Stop: 04/24/19 19:34 Last Admin: 04/24/19 20:48 Dose: 4 mg <Alphonso,Hooria - Last Filed: 05/02/19 12:30> Discharge Summary - Hospital Course Free Text/Narrative:: I have seen and evaluated the patient and agree with the residents note unless specified in my note - Referral to Home Health Primary Care Physician: Uriel Rebolledo MD - Patient Data Vitals - Most Recent: Last Vital Signs Temp 36.7 C 04/25/19 12:08 Pulse 56 L 04/25/19 12:08 Resp 20 04/25/19 12:08 BP 112/58 L 04/25/19 12:08 Pulse Ox 99 04/25/19 12:08 Med Orders - Current: Current Medications Discontinued Medications Calcium Gluconate (Calcium Gluconate) 1 gm IVPUSH ONETIME ONE Stop: 04/24/19 19:35 Last Admin: 04/24/19 20:48 Dose: 1 gm Enoxaparin Sodium (Lovenox) 40 mg SUBCUT Q24H FIORELLA Last Admin: 04/24/19 20:47 Dose: 40 mg Sodium Chloride (Normal Saline) 1,000 mls @ 999 mls/hr IV STAT ONE Stop: 04/24/19 16:56 Last Admin: 04/24/19 16:17 Dose: 999 mls/hr Sodium Chloride (Normal Saline) 1,000 mls @ 999 mls/hr IV .Bolus ONE Stop: 04/24/19 18:57 Last Admin: 04/24/19 19:06 Dose: 999 mls/hr Sodium Chloride (Normal Saline) 1,000 mls @ 100 mls/hr IV CONTINUOUS FIORELLA Stop: 04/25/19 05:29 Last Admin: 04/25/19 05:16 Dose: 100 mls/hr Pantoprazole Sodium 40 mg/ (Sodium Chloride) 10 mls @ 300 mls/hr IV DAILY FIORELLA Last Admin: 04/25/19 08:35 Dose: 300 mls/hr Sodium Chloride (Normal Saline) 1,000 mls @ 200 mls/hr IV CONTINUOUS STA Stop: 04/25/19 12:42 Last Admin: 04/25/19 08:33 Dose: 200 mls/hr Ondansetron HCl (Zofran) 4 mg IVPUSH ONETIME ONE Stop: 04/24/19 15:57 Last Admin: 04/24/19 16:17 Dose: 4 mg Ondansetron HCl (Zofran) 4 mg IVPUSH Q4H PRN PRN Reason: Nausea Last Admin: 04/25/19 05:02 Dose: 4 mg Ondansetron HCl (Zofran Odt) 4 mg PO ONETIME ONE Stop: 04/24/19 19:34 Last Admin: 04/24/19 20:48 Dose: 4 mg Sodium Chloride (Saline Flush) 10 ml FLUSH ASDIRECTED PRN PRN Reason: Keep Vein Open Last Admin: 04/24/19 16:17 Dose: 10 ml Sodium Chloride (Saline Flush) 2.5 ml FLUSH ASDIRECTED PRN PRN Reason: Keep Vein Open Last Admin: 04/24/19 16:17 Dose: 2.5 ml
[2019-04-25 12:09] VITALS: BP 112/58; PULSE 56
== END 2019-04-25 13:58 | disposition home or self-care (01) ==
LOC: MW.ED 15:02 → MW.MS 18:43
PROVIDERS: ADMIT Student in an Organized Health Care Education/Training Program; ATTEND Student in an Organized Health Care Education/Training Program
DX: E86.0 Dehydration (principal); E87.1 Hypo-osmolality and hyponatremia; K21.9 Gastro-esophageal reflux disease without esophagitis; R11.2 Nausea with vomiting, unspecified; E87.5 Hyperkalemia; F12.10 Cannabis abuse, uncomplicated; F17.200 Nicotine dependence, unspecified, uncomplicated; Z79.899 Other long term (current) drug therapy
CPT/HCPCS: 36415; 71046; 80053; 80305; 81003; 83036; 83690; 84300; 84443; 85025; 93005; 96361; 96374; 99285; A9270; C9113; J0610; J1650; J2405; J7030; J7050; 96372; 96375; 96376; G0378

== ENCOUNTER 2019-05-17 21:02 | Emergency (ER) | payer MEDICAID, OTHER ==
[2019-05-17 21:11] VITALS: BP 120/91; PULSE 125
[2019-05-17] MEDS ORDERED: Ondansetron 4 MG Tab.DIS PO ONE (21:27)
--- NOTE | 2019-05-17 21:34 | EDM.PDOC ---
ED HPI GENERAL MEDICAL PROBLEM - General Chief Complaint: Gastrointestinal Problem Stated Complaint: VOMITTING,CRAMPING Time Seen by Provider: 05/17/19 21:27 Source of Information: Reports: Patient History Limitations: Reports: No Limitations - History of Present Illness INITIAL COMMENTS - FREE TEXT/NARRATIVE: HISTORY AND PHYSICAL: History of present illness: Patient is a 29-year-old male well known to the ED presents for abdominal cramping and vomiting. Patient has been seen for this multiple times in the past and states he has been told it's due to GERD and takes omeprazole. He states he has been vomiting for the past 2 days and having cramping in his "abs. " He denies fevers, diarrhea, chills, chest pain, shortness of breath. He states he has been smoking marijuana recently. He denies alcohol use. He does follow up with Dr. Melton at [facility]. Review of systems: As per history of present illness and below otherwise all systems reviewed and negative. Past medical history: As per history of present illness and as reviewed below otherwise noncontributory. Surgical history: As per history of present illness and as reviewed below otherwise noncontributory. Social history: No reported history of drug or alcohol abuse. Family history: As per history of present illness and as reviewed below otherwise noncontributory. Physical exam: General: Patient sitting comfortably in no acute distress and nontoxic appearing HEENT: Atraumatic, normocephalic, pupils reactive, negative for conjunctival pallor or scleral icterus, mucous membranes moist, throat clear, neck supple, nontender, trachea midline. No meningeal signs. Lungs: Clear to auscultation, breath sounds equal bilaterally, chest nontender. Heart: S1S2, regular, negative for clicks, rubs, or overt murmur. Abdomen: Soft, nondistended, nontender. Negative for masses or hepatosplenomegaly. Negative for costovertebral tenderness. No rigidity, rebound , guarding. Pelvis: Stable nontender. Genitourinary: Deferred. Rectal: Deferred. Extremities: Atraumatic, negative for cords or calf pain. Neurovascular unremarkable. Neuro: Awake, alert, oriented. Cranial nerves II through XII unremarkable. Cerebellum unremarkable. Motor and sensory unremarkable throughout. Exam nonfocal. Notes: Abdominal examination is benign. Patient is slightly tachycardic but mucous membranes moist and cap refill <2 seconds. He is afebrile. Patient given ODT zofran and tolerate PO fluids in the ED. Patient encouraged to stop marijuana use and follow up with primary care provider. Diagnostics: none Therapeutics: Zofran 4mg ODT Prescriptions: Zofran Impression: Nausea and vomiting Plan: Drink plenty of small sips of fluids and bland food as tolerated You may take zofran as needed for nausea and vomiting Follow up with primary care provider Return to ED as needed as discussed Definitive disposition and diagnosis as appropriate pending reevaluation and review of above. Abdomen Pain Score (Numeric/FACES): 7 - Related Data Allergies Allergy/AdvReac Type Severity Reaction Status Date / Time No Known Allergies Allergy Verified 05/17/19 21:08 Home Meds: Home Meds Omeprazole Magnesium [Prilosec Otc] 40 mg PO BID 03/19/18 [History] Past Medical History - Past Health History Medical/Surgical History: Denies Medical/Surgical History HEENT History: Reports: None Cardiovascular History: Reports: None Respiratory History: Reports: None Gastrointestinal History: Reports: GERD, Helicobacter Pylori Genitourinary History: Reports: None Musculoskeletal History: Reports: Other (See Below) Other Musculoskeletal History: shoulder injury Neurological History: Reports: None Psychiatric History: Reports: None Endocrine/Metabolic History: Reports: None Insulin Pump Model and Mid Wife: N/A Hematologic History: Reports: None Immunologic History: Reports: None Oncologic (Cancer) History: Reports: None Dermatologic History: Reports: None - Infectious Disease History Infectious Disease History: Reports: None - Past Surgical History Head Surgeries/Procedures: Reports: None HEENT Surgical History: Reports: Myringotomy w Tube(s) Cardiovascular Surgical History: Reports: None Respiratory Surgical History: Reports: None GI Surgical History: Reports: None Male Surgical History: Reports: None Endocrine Surgical History: Reports: None Neurological Surgical History: Reports: None Musculoskeletal Surgical History: Reports: Other (See Below) Other Musculoskeletal Surgeries/Procedures:: finger sx Dermatological Surgical History: Reports: None Social & Family History - Family History Family Medical History: Noncontributory Cardiac: Reports: Hypertension - Tobacco Use Smoking Status *Q: Former Smoker Used Tobacco, but Quit: No - Caffeine Use Caffeine Use: Reports: Coffee, Tea Caffeine Use Comment: 60 oz of soda/day - Recreational Drug Use Recreational Drug Use: Yes Drug Use in Last 12 Months: Yes Recreational Drug Type: Reports: Marijuana/Hashish ED ROS GENERAL - Review of Systems Review Of Systems: Comprehensive ROS is negative, except as noted in HPI. ED EXAM, GI/ABD - Physical Exam Exam: See Below (see dictation) Course - Vital Signs Last Recorded V/S: Last Vital Signs Temp 97.1 F 05/17/19 21:08 Pulse 125 H 05/17/19 21:08 Resp 18 05/17/19 21:08 BP 120/91 H 05/17/19 21:08 Pulse Ox 94 L 05/17/19 21:08 - Orders/Labs/Meds Orders: Active Orders 24 hr Category Date Time Status Ondansetron [Zofran ODT] Med 05/17/19 21:27 Once 4 mg PO ONETIME ONE Departure - Departure Time of Disposition: 21:34 Disposition: Home, Self-Care 01 Condition: Good Clinical Impression: Nausea and vomiting - Discharge Information Referrals: Uriel Rebolledo MD [Primary Care Provider] - Additional Instructions: The following information is given to patients seen in the emergency department who are being discharged to home. This information is to outline your options for follow-up care. We provide all patients seen in our emergency department with a follow-up referral. The need for follow-up, as well as the timing and circumstances, are variable depending upon the specifics of your emergency department visit. If you don't have a primary care physician on staff, we will provide you with a referral. We always advise you to contact your personal physician following an emergency department visit to inform them of the circumstance of the visit and for follow-up with them and/or the need for any referrals to a consulting specialist. The emergency department will also refer you to a specialist when appropriate. This referral assures that you have the opportunity for follow-up care with a specialist. All of these measure are taken in an effort to provide you with optimal care, which includes your follow-up. Under all circumstances we always encourage you to contact your private physician who remains a resource for coordinating your care. When calling for follow-up care, please make the office aware that this follow-up is from your recent emergency room visit. If for any reason you are refused follow-up, please contact the [facility] Emergency Department at and asked to speak to the emergency department charge nurse. [facility] [address] [place] [address] [facility] [address] [place] [address] Drink plenty of small sips of fluids and bland food as tolerated You may take zofran as needed for nausea and vomiting Follow up with primary care provider Return to ED as needed as discussed Sepsis Event Note - Evaluation Sepsis Screening Result: No Definite Risk - Focused Exam Vital Signs: Vital Signs Temp Pulse Resp BP Pulse Ox 05/17/19 21:08 97.1 F 125 H 18 120/91 H 94 L Date Exam was Performed: 05/17/19 Time Exam was Performed: 21:27 - My Orders Last 24 Hours: My Active Orders 05/17/19 21:27 Ondansetron [Zofran ODT] 4 mg PO ONETIME ONE - Assessment/Plan Last 24 Hours: My Active Orders 05/17/19 21:27 Ondansetron [Zofran ODT] 4 mg PO ONETIME ONE
== END 2019-05-17 21:52 | disposition home or self-care (01) ==
LOC: MW.ED 21:02
DX: R11.2 Nausea with vomiting, unspecified (principal); K21.9 Gastro-esophageal reflux disease without esophagitis; Z79.899 Other long term (current) drug therapy; Z87.891 Personal history of nicotine dependence
CPT/HCPCS: 99283; A9270

== ENCOUNTER 2019-09-08 11:18 | Emergency (ER) | payer SELFPAY ==
[2019-09-08] MEDS ORDERED: Haloperidol Lactate 5 MG/ML SDV IM ONE (11:35)
[2019-09-08] MEDS ORDERED: Sodium Chloride 0.9% 10 ML Syringe FLUSH PRN ×2 (11:37)
[2019-09-08] MEDS ORDERED: Sodium Chloride 0.9% 1,000 ML IV ONE (11:37)
[2019-09-08] MEDS ORDERED: Sodium Chloride 0.9% 2.5 ML Syringe FLUSH PRN (11:37)
[2019-09-08] MEDS ORDERED: Famotidine 20 MG/2 ML SDV IVPUSH ONE (11:41)
[2019-09-08] MEDS: Sodium Chloride 0.9% 1,000 ML IV ONE ×2 (11:52→13:15)
[2019-09-08 12:12] LABS: BLOOD UREA NITROGEN,BUN 23 mg/dL (7.0-18.0); CARBON DIOXIDE,CO2 31.3 mmol/L (21.0-32.0); GLUCOSE RANDOM 123 mg/dL (74-106); LIPASE 144 U/L (73-393)
[2019-09-08 12:36] LABS: CHLORIDE,CL 79 mmol/L (98-107); POTASSIUM,K 4.7 mmol/L (3.5-5.1)
--- NOTE | 2019-09-08 13:10 | EDM.PDOC ---
ED HPI GENERAL MEDICAL PROBLEM - General Chief Complaint: Abdominal Pain Stated Complaint: NAUSEA/VOMITING Time Seen by Provider: 09/08/19 11:21 - History of Present Illness INITIAL COMMENTS - FREE TEXT/NARRATIVE: History of present illness: [] Patient presents with nausea and vomiting for 11 days patient states he has been able to tolerate intermittent fluids and some small amount of chicken broth last night he last peed yesterday he denies abdominal pain just says it has feels nauseous he denies any fever chills no difficulty breathing nothing seems to make it better or worse he is tried milk of magnesia and Maalox at home has a long history of repeated bouts of episodic vomiting. Review of systems: As per history of present illness and below otherwise all systems reviewed and negative. Past medical history: As per history of present illness and as reviewed below otherwise noncontributory. Surgical history: As per history of present illness and as reviewed below otherwise noncontributory. Social history: No reported history of drug or alcohol abuse. Family history: As per history of present illness and as reviewed below otherwise noncontributory. Physical exam: HEENT: Atraumatic, normocephalic, pupils reactive, negative for conjunctival pallor or scleral icterus, mucous membranes tacky, throat clear, neck supple, nontender, trachea midline. Lungs: Clear to auscultation, breath sounds equal bilaterally, chest nontender. Heart: S1S2, regular, negative for clicks, rubs, or JVD. Abdomen: Soft, nondistended, nontender. Negative for masses or hepatosplenomegaly. Negative for costovertebral tenderness. Pelvis: Stable nontender. Genitourinary: Deferred. Rectal: Deferred. Extremities: Atraumatic, negative for cords or calf pain. Neurovascular unremarkable. Neuro: Awake, alert, oriented. Cranial nerves II through XII unremarkable. Cerebellum unremarkable. Motor and sensory unremarkable throughout. Exam nonfocal. Diagnostics: [] Therapeutics: [] Impression: [] Plan: Fluids labs antiemetics reassess [] Definitive disposition and diagnosis as appropriate pending reevaluation and review of above. abdominal, chest Pain Score (Numeric/FACES): 4 - Related Data Allergies Allergy/AdvReac Type Severity Reaction Status Date / Time No Known Allergies Allergy Verified 09/08/19 11:34 Home Meds: Home Meds Omeprazole Magnesium [Prilosec Otc] 40 mg PO BID 03/19/18 [History] Ondansetron [Zofran ODT] 4 mg PO Q6H PRN 5 Days #12 tab.dis 09/08/19 [Rx] Past Medical History - Past Health History Medical/Surgical History: Denies Medical/Surgical History HEENT History: Reports: None Cardiovascular History: Reports: None Respiratory History: Reports: None Gastrointestinal History: Reports: GERD, Helicobacter Pylori Genitourinary History: Reports: None Musculoskeletal History: Reports: Other (See Below) Other Musculoskeletal History: shoulder injury Neurological History: Reports: None Psychiatric History: Reports: None Endocrine/Metabolic History: Reports: None Insulin Pump Model and Financial Advisor Trainee: N/A Hematologic History: Reports: None Immunologic History: Reports: None Oncologic (Cancer) History: Reports: None Dermatologic History: Reports: None - Infectious Disease History Infectious Disease History: Reports: None - Past Surgical History Head Surgeries/Procedures: Reports: None HEENT Surgical History: Reports: Myringotomy w Tube(s) Cardiovascular Surgical History: Reports: None Respiratory Surgical History: Reports: None GI Surgical History: Reports: None Male Surgical History: Reports: None Endocrine Surgical History: Reports: None Neurological Surgical History: Reports: None Musculoskeletal Surgical History: Reports: Other (See Below) Other Musculoskeletal Surgeries/Procedures:: finger sx Dermatological Surgical History: Reports: None Social & Family History - Family History Family Medical History: Noncontributory Cardiac: Reports: Hypertension - Tobacco Use Smoking Status *Q: Never Smoker - Caffeine Use Caffeine Use: Reports: Coffee, Tea Caffeine Use Comment: 60 oz of soda/day - Recreational Drug Use Recreational Drug Use: Yes Drug Use in Last 12 Months: Yes Recreational Drug Type: Reports: Marijuana/Hashish Recreational Drug Use Frequency: Daily ED ROS GENERAL - Review of Systems Review Of Systems: See Below ED EXAM, GENERAL - Physical Exam Exam: See Below Course - Vital Signs Text/Narrative:: Patient has hyponatremia at 119 I recommend he be admitted I have described this is a dangerous situation requiring admission and that he may be at risk for seizures and patient wants to leave I reiterated that he has a condition that requires hospitalization or he might have a bad outcome he fully is alert and oriented and understands and he was warned. I will write him some Zofran I encouraged him to try to eat some food and return to the ED if he worsens. Last Recorded V/S: Last Vital Signs Temp 35.5 C L 09/08/19 11:32 Pulse 80 09/08/19 11:32 Resp 18 09/08/19 11:32 BP 117/74 09/08/19 11:32 Pulse Ox 100 09/08/19 11:32 - Orders/Labs/Meds Orders: Active Orders 24 hr Category Date Time Status Sodium Chloride 0.9% [Saline Flush] Med 09/08/19 11:37 Active 10 ml FLUSH ASDIRECTED PRN Sodium Chloride 0.9% [Saline Flush] Med 09/08/19 11:37 Active 10 ml FLUSH ASDIRECTED PRN Sodium Chloride 0.9% [Saline Flush] Med 09/08/19 11:37 Active 2.5 ml FLUSH ASDIRECTED PRN Saline Lock Insert [OM.PC] Stat Oth 09/08/19 11:37 Ordered Medication Orders Sodium Chloride (Saline Flush) 2.5 ml FLUSH ASDIRECTED PRN PRN Reason: Keep Vein Open Last Admin: 09/08/19 11:51 Dose: 2.5 ml Documented by: VIALMEL Sodium Chloride (Saline Flush) 10 ml FLUSH ASDIRECTED PRN PRN Reason: Keep Vein Open Last Admin: 09/08/19 11:51 Dose: 10 ml Documented by: VIALMEL Sodium Chloride (Saline Flush) 10 ml FLUSH ASDIRECTED PRN PRN Reason: Keep Vein Open Last Admin: 09/08/19 11:51 Dose: 10 ml Documented by: BAIRON Labs: Laboratory Tests 09/08/19 09/08/19 Range/Units 11:40 11:40 WBC 17.39 H (4.0-11.0) K/uL RBC 5.85 (4.50-5.90) M/uL Hgb 17.7 H (13.0-17.0) g/dL Hct 47.2 (38.0-50.0) % MCV 80.7 (80.0-98.0) fL MCH 30.3 (27.0-32.0) pg MCHC 37.5 H (31.0-37.0) g/dL RDW Std Deviation 32.7 (28.0-62.0) fl RDW Coeff of Teresa 11 (11.0-15.0) % Plt Count 280 (150-400) K/uL MPV 10.80 (7.40-12.00) fL Neut % (Auto) 72.0 (48.0-80.0) % Lymph % (Auto) 17.2 (16.0-40.0) % [place] % (Auto) 10.7 (0.0-15.0) % Eos % (Auto) 0.0 (0.0-7.0) % Baso % (Auto) 0.1 (0.0-1.5) % Neut # (Auto) 12.5 H (1.4-5.7) K/uL Lymph # (Auto) 3.0 H (0.6-2.4) K/uL [place] # (Auto) 1.9 H (0.0-0.8) K/uL Eos # (Auto) 0.0 (0.0-0.7) K/uL Baso # (Auto) 0.0 (0.0-0.1) K/uL Nucleated RBC % 0.0 /100WBC Nucleated RBCs # 0 K/uL Sodium (136-148) mmol/L Potassium 4.7 (3.5-5.1) mmol/L Chloride 79 L (98-107) mmol/L Carbon Dioxide 31.3 (21.0-32.0) mmol/L BUN 23 H (7.0-18.0) mg/dL Creatinine 1.3 (0.8-1.3) mg/dL Est Cr Clr Drug Dosing 57.50 mL/min Estimated GFR (MDRD) > 60.0 ml/min Glucose 123 H (74-106) mg/dL Calcium 8.8 (8.5-10.1) mg/dL Total Bilirubin 0.8 (0.2-1.0) mg/dL AST 25 (15-37) IU/L ALT 28 (14-63) IU/L Alkaline Phosphatase 102 (46-116) U/L Total Protein 7.6 (6.4-8.2) g/dL Albumin 4.7 (3.4-5.0) g/dL Globulin 2.9 (2.6-4.0) g/dL Albumin/Globulin Ratio 1.6 (0.9-1.6) Lipase 144 (73-393) U/L Meds: Medications Generic Name Dose Route Start Last Admin Trade Name Freq PRN Reason Stop Dose Admin Sodium Chloride 2.5 ml 09/08/19 11:37 09/08/19 11:51 Saline Flush FLUSH 2.5 ml ASDIRECTED PRN Administration Keep Vein Open Sodium Chloride 10 ml 09/08/19 11:37 09/08/19 11:51 Saline Flush FLUSH 10 ml ASDIRECTED PRN Administration Keep Vein Open Sodium Chloride 10 ml 09/08/19 11:37 09/08/19 11:51 Saline Flush FLUSH 10 ml ASDIRECTED PRN Administration Keep Vein Open Discontinued Medications Generic Name Dose Route Start Last Admin Trade Name Freq PRN Reason Stop Dose Admin Famotidine 20 mg 09/08/19 11:41 09/08/19 11:50 Pepcid IVPUSH 09/08/19 11:42 20 mg ONETIME ONE Administration Haloperidol Lactate 5 mg 09/08/19 11:35 09/08/19 11:49 Haldol IM 09/08/19 11:36 5 mg ONETIME ONE Administration Sodium Chloride 1,000 mls @ 999 mls/hr 09/08/19 11:37 09/08/19 11:48 Normal Saline IV 09/08/19 12:37 999 mls/hr BOLUS ONE Administration Sodium Chloride 1,000 mls @ 999 mls/hr 09/08/19 11:42 09/08/19 11:52 Normal Saline IV 09/08/19 12:42 999 mls/hr .Bolus ONE Administration Departure - Departure Time of Disposition: 13:05 Disposition: Against Medical Advice 07 Condition: Poor Clinical Impression: Gastroenteritis, Abdominal pain, Hyponatremia, Cyclical vomiting - Discharge Information *PRESCRIPTION DRUG MONITORING PROGRAM REVIEWED*: Not Applicable *COPY OF PRESCRIPTION DRUG MONITORING REPORT IN PATIENT RAE: Not Applicable Instructions: Nausea and Vomiting, Adult Referrals: Uriel Rebolledo MD [Primary Care Provider] - Additional Instructions: The following information is given to patients seen in the emergency department who are being discharged to home. This information is to outline your options for follow-up care. We provide all patients seen in our emergency department with a follow-up referral. The need for follow-up, as well as the timing and circumstances, are variable depending upon the specifics of your emergency department visit. If you don't have a primary care physician on staff, we will provide you with a referral. We always advise you to contact your personal physician following an emergency department visit to inform them of the circumstance of the visit and for follow-up with them and/or the need for any referrals to a consulting specialist. The emergency department will also refer you to a specialist when appropriate. This referral assures that you have the opportunity for follow-up care with a specialist. All of these measure are taken in an effort to provide you with optimal care, which includes your follow-up. Under all circumstances we always encourage you to contact your private physician who remains a resource for coordinating your care. When calling for follow-up care, please make the office aware that this follow-up is from your recent emergency room visit. If for any reason you are refused follow-up, please contact the [facility] Emergency Department at and asked to speak to the emergency department charge nurse. [facility] [address] [place] [address] [place] [address] Sepsis Event Note (ED) - Evaluation Sepsis Screening Result: No Definite Risk - Focused Exam Vital Signs: Vital Signs Temp Pulse Resp BP Pulse Ox 09/08/19 11:32 35.5 C L 80 18 117/74 100 - My Orders Last 24 Hours: My Active Orders 09/08/19 11:37 Sodium Chloride 0.9% [Saline Flush] 10 ml FLUSH ASDIRECTED PRN Sodium Chloride 0.9% [Saline Flush] 10 ml FLUSH ASDIRECTED PRN Sodium Chloride 0.9% [Saline Flush] 2.5 ml FLUSH ASDIRECTED PRN Saline Lock Insert [OM.PC] Stat - Assessment/Plan Last 24 Hours: My Active Orders 09/08/19 11:37 Sodium Chloride 0.9% [Saline Flush] 10 ml FLUSH ASDIRECTED PRN Sodium Chloride 0.9% [Saline Flush] 10 ml FLUSH ASDIRECTED PRN Sodium Chloride 0.9% [Saline Flush] 2.5 ml FLUSH ASDIRECTED PRN Saline Lock Insert [OM.PC] Stat
[2019-09-08 13:29] VITALS: BP 100/59; PULSE 88
== END 2019-09-08 13:29 | disposition left against medical advice (07) ==
LOC: MW.ED 11:18
DX: K52.9 Noninfective gastroenteritis and colitis, unspecified (principal); E87.1 Hypo-osmolality and hyponatremia; R11.15 Cyclical vomiting syndrome unrelated to migraine; K21.9 Gastro-esophageal reflux disease without esophagitis; Z79.899 Other long term (current) drug therapy
CPT/HCPCS: 36415; 80053; 83690; 85025; 96361; 96372; 96374; 99284; J1630; J7030; S0028; J3490

== ENCOUNTER 2021-09-28 19:29 | Emergency (ER) | payer BC, MEDICAID ==
[2021-09-28 22:13] VITALS: BP 122/77; PULSE 79
== END 2021-09-28 22:13 | disposition home or self-care (01) ==
LOC: MW.ED 19:29
DX: S69.91XA Unspecified injury of right wrist, hand and finger(s), initial encounter (principal); W18.09XA Striking against other object with subsequent fall, initial encounter
CPT/HCPCS: 73110-26-RT; 73110-RT; 73130-26-RT; 73130-RT; 99282; 99283

== ENCOUNTER 2022-06-22 16:05 | Emergency (ER) | payer MEDICAID ==
[2022-06-22] MEDS ORDERED: Sodium Chloride 0.9% 10 ML Syringe FLUSH PRN (16:44)
[2022-06-22] MEDS ORDERED: Ondansetron 4 MG/2 ML SDV IVPUSH ONE (16:44)
[2022-06-22] MEDS ORDERED: Sodium Chloride 0.9% 2.5 ML Syringe FLUSH PRN (16:44)
[2022-06-22] MEDS ORDERED: Sodium Chloride 0.9% 1,000 ML IV ONE ×2 (16:44→18:32)
[2022-06-22 17:57] LABS: CARBON DIOXIDE,CO2 26.7 mmol/L (21.0-32.0); POTASSIUM,K 4.1 mmol/L (3.5-5.1)
== END 2022-06-22 19:00 | disposition left against medical advice (07) ==
LOC: MW.ED 16:05 → MERGE 16:05 → MW.ED 19:00
DX: E87.1 Hypo-osmolality and hyponatremia (principal); E86.0 Dehydration; N17.9 Acute kidney failure, unspecified; K21.9 Gastro-esophageal reflux disease without esophagitis; Z79.899 Other long term (current) drug therapy
CPT/HCPCS: 36415; 80053; 83690; 83735; 85025; 96361; 96374; 99284; J2405; J3490; J7030; 99285

== ENCOUNTER 2022-11-25 15:59 | Emergency (ER) | payer MEDICAID | END 2022-11-25 18:35 | disposition left against medical advice (07) | LOC: MW.ED 15:59 | DX: Z53.21 Procedure and treatment not carried out due to patient leaving prior to being seen by health care provider (principal) ==

== ENCOUNTER 2024-11-04 15:12 | Emergency (ER) | payer SELFPAY | END 2024-11-04 15:54 | disposition left against medical advice (07) | LOC: MW.ED 15:12 | DX: F12.10 Cannabis abuse, uncomplicated (principal); Z53.29 Procedure and treatment not carried out because of patient's decision for other reasons; K21.9 Gastro-esophageal reflux disease without esophagitis; Z79.899 Other long term (current) drug therapy | CPT/HCPCS: 99282; 99283 ==